=== PATIENT | female | born 1960 | race Caucasian/White ===

== ENCOUNTER 2017-08-23 14:23 | Inpatient (IN) | payer BC ==
[2017-08-23] MEDS ORDERED: Albuterol/Ipratropium NEB.SOL* Albuterol 2.5 MG/Ipratropium 0.5 MG 3 ML INH ONE ×2 (14:43→15:39)
[2017-08-23] MEDS ORDERED: methylPREDNISolone 125 MG* 2 ML VIAL IV ONE (14:43)
[2017-08-23] MEDS ORDERED: Albuterol/Ipratropium NEB.SOL* Albuterol 2.5 MG/Ipratropium 0.5 MG 3 ML ONE (14:44)
[2017-08-23 14:58] LABS: Hematocrit 40 % (35-47); Hemoglobin 13.7 g/dl (12.0-16.0); Mean Corpuscular HGB Conc 34 g/dl (31-36); Mean Corpuscular Hemoglobin 30 pg (27-31); Mean Corpuscular Volume 89 fL (80-97); Mean Platelet Volume 7 um3 (7.4-10.4); Red Blood Count 4.51 10^6/ul (4.0-5.4); Red Cell Distribution Width 14 % (10.5-15); White Blood Count 8.4 10^3/ul (3.5-10.8)
[2017-08-23 15:12] LABS: Albumin 3.9 g/dL (3.2-5.2); BUN/Creatinine Ratio 23.1 (8-20); Calcium 9.2 mg/dL (8.6-10.3); EGFR African American 97.2 (>60); EGFR Non-African American 75.6 (>60); Globulin 3.3 g/dL (2-4); Potassium 4.1 mmol/L (3.5-5.0); Total Protein 7.2 g/dL (6.4-8.9)
--- NOTE | 2017-08-23 16:28 | RAD ---
INDICATION: Shortness of breath. COMPARISON: Most recent comparison chest x-rays dated March 02, 2016 TECHNIQUE: Single AP portable view of the chest was obtained. FINDINGS: Image quality is compromised due to the relative inferiority of a portable chest x-ray. There is a mild degree of cardiomegaly similar in appearance to the prior chest x-ray. The heart and mediastinum otherwise are normal in contour and morphology. There is faint density overlying the bilateral lungs. The pulmonary vasculature appears minimally engorged and indistinct. There is slight bilateral costophrenic angle blunting. Visualized bones are normal for the patient's age. IMPRESSION: In the correct clinical setting chest x-ray findings are most consistent with exacerbation of congestive heart failure.
[2017-08-23] MEDS ORDERED: Acetaminophen TAB* 325 MG PO PRN (16:49)
[2017-08-23] MEDS ORDERED: Albuterol 2.5 MG/3 ML NEB.SOL* (0.083%) INH PRN (16:49)
[2017-08-23] MEDS ORDERED: Ondansetron INJ* 2 MG/ML VIAL IV PRN (16:49)
[2017-08-23] MEDS ORDERED: Dextrose 50% Syringe 50 ML* 25 GM/50 ML SYRINGE IV PUSH PRN (16:53)
[2017-08-23] MEDS ORDERED: Albuterol/Ipratropium NEB.SOL* Albuterol 2.5 MG/Ipratropium 0.5 MG 3 ML INH SCH (17:00)
[2017-08-23] MEDS: predniSONE TAB* 20 MG PO SCH (19:23)
[2017-08-23] MEDS: Azithromycin IV(*) 500 MG in NS 0.9% 250 ML* 250 ML IVPB SCH (19:24)
[2017-08-23] MEDS: Atorvastatin* 20 MG TAB PO SCH (19:24)
[2017-08-23] MEDS: Mometasone/Formoter 200/5 MDI INH SCH (19:47)
[2017-08-23] MEDS: Albuterol/Ipratropium NEB.SOL* Albuterol 2.5 MG/Ipratropium 0.5 MG 3 ML INH SCH ×2 (19:47→23:51)
[2017-08-23] MEDS: Heparin VIAL(*) 5000 UNITS/ML VIAL (FIVE THOUSAND) SUBCUT SCH (20:11)
[2017-08-23] MEDS: cefTRIAXone VIAL(*) 1,000 MG in NS 0.9% 50 ML* 50 ML IVPB SCH (21:10)
--- NOTE | 2017-08-24 00:59 | HP ---
CC: Dr. Johanne Hernandez * HISTORY AND PHYSICAL: DATE OF ADMISSION: 08/22/17 PRIMARY CARE PROVIDER: Dr. Johanne Hernandez. ATTENDING PHYSICIAN WHILE IN THE HOSPITAL: Dante Mitchell MD * (report dictated by J Luis Davis NP) CHIEF COMPLAINT: 1. Cough. 2. Sore throat. 3. Rhinorrhea. 4. Shortness of breath. HISTORY OF PRESENT ILLNESS: Ms. Walsh is a 57-year-old female patient carrying a history of hypothyroidism, chronic back pain,history of pneumonia in the past, obesity, MOISE, COPD, uterine cancer, hyperlipidemia, diabetes, hypertension and migraine. She comes in today stating the last couple of days she has been feeling pretty run down. She has been having difficulty with breathing, having a sore throat. She has progressively become more congested. She has had runny nose. She had been trying to take Mucinex, unfortunately, she ran out of her inhalers. She tried to work last night, but she could not. She went home early from work. She was lying down in bed. She just woke up from sleep, was really short of breath, was getting more short of breath with any type of movement or minimal exertion. She denied having any documented fevers or chills and no recent sick contacts that she is aware of. She does state that interestingly she recently had her flu shot. She was concerned because of the breathing, she decided to come into the ER today. She says she has been having a cough that has been productive. She is swallowing the sputum , she is not spitting it out. She does not know what color it is. She denied having any chest pain with the exception it hurts when she coughs and she denied having any nausea, vomiting or diarrhea or any abdominal discomfort. She was evaluated here in the ED. She was given several rounds of nebulizer, but despite this she just was not improving. So, we were asked to evaluate for admission. PAST MEDICAL HISTORY: Significant for: 1. Hypothyroidism. 2. Recurrent pneumonia in the past. 3. Back pain. 4. Obesity. 5. MOISE. 6. COPD. 7. Uterine cancer. 8. Hypertension. 9. Hyperlipidemia. 10. Diabetes. 11. Migraine. PAST SURGICAL HISTORY: 1. She has had a hernia repair. 2. D and Cs. 3. Laparoscopic cholecystectomy. 4. section x3. MEDICATIONS: The home meds according to Bianka's list and we need that clarified because I am not sure what inhaler she is supposed to be taking. She said she has run out and has not been on them for some time, but the most recent meds that I have from Bianka's include: 1. Diltiazem CD 120 mg p.o. daily. 2. Albuterol 2 puffs inhaled every 6 hours as needed. 3. Synthroid 175 mcg daily. 4. Questran 1 packet daily p.o. 5. Januvia 25 mg daily. 6. Glucophage 850 mg p.o. b.i.d. 7. Lipitor 20 mg daily. ALLERGIES TO MEDICATIONS: Include LEVAQUIN. FAMILY HISTORY: Mother had a history of a lung cancer. Father's history was reviewed and essentially unremarkable. She denied her father having heart disease, strokes, or cancers. SOCIAL HISTORY: She is a former smoker, quit 20 years ago. Does not drink alcohol. Surrogate decision maker is her daughter. REVIEW OF SYSTEMS: There is no documented fever. She denied having any significant weight change. There was no double vision. There is no ear discharge. There was rhinorrhea. There was sore throat. There was no thyroid enlargement. She does admit to having chest per my HPI. There is dyspnea on exertion. No orthopnea. No nocturnal dyspnea. No abdominal pain. No nausea, no vomiting, no dysuria, no frequency. There was no seizure, no loss of consciousness, no pruritus, and no skin ulcerations. Review of 14 systems completed, all others are negative. PHYSICAL EXAMINATION GENERAL: At this time, Ms. Walsh is a 57-year-old female patient. She is sitting in the ER stretcher. She does not appear to be in any acute distress. VITAL SIGNS: Blood pressure 166/70, yesterday pulse 113 and is now 90, respirations were 22, O2 sat 98%, and temperature 99.2. HEENT: Head atraumatic. Eyes, EOMs intact. Sclerae anicteric. Throat, oral mucosa appears to be dry. I did not appreciate any erythema to her throat and she again was noted to be hoarse. NECK: Supple. LUNGS: She had wheezing noted throughout bilaterally. Equal diaphragmatic expansion. HEART: Heart sounds S1 and S2. No murmurs, rubs, or gallops. ABDOMEN: Soft. It was flat, nontender. Bowel sounds present. EXTREMITIES: Pulses were 2+ throughout. She is moving all 4 extremities. 5/5 strength. NEUROLOGIC: She is awake, alert, and oriented x3. Speech is clear. No gross focal deficits. SKIN: Intact. DIAGNOSTIC STUDIES/LABORATORY DATA: WBC is 8.4, RBC of 4.51, hemoglobin 13.7, hematocrit 40, platelet count 278. Sodium 135, potassium 4.1, chloride 100, bicarb 28, BUN 18, creatinine 0.78, glucose 131, lactate 1.6, calcium 9.2. Total bilirubin 1.0, AST 14, ALT 19, alk phos 112. Troponin 0. BNP 19. Albumin of 3.9. Serology negative for flu. She did have a chest x-ray today. When I reviewed it, I did not appreciate any acute infiltrates. I reviewed with her previous chest x-ray, to me it appeared to be similar. I did not appreciate any pulmonary edema. She did have an EKG obtained today as well. Today his EKG is showing a normal sinus rhythm with a rate of 94. No ST elevations or T wave inversions were noted. Old medical records were reviewed. ASSESSMENT AND PLAN: Ms. Walsh is 57-year-old female patient coming into the ER today with upper respiratory complaints. The hospitalist service was asked to evaluate for admission. She was not responding to therapy here in the ED. She will be admitted under inpatient status for: 1. Chronic obstructive pulmonary disease exacerbation. At this point, I will go ahead and put her on standing neb steroids, inhaled steroids in the form of Dulera. At one point, she was on Advair, but she is not taking this anymore. She said she ran out. I will go ahead and get legionella antigen, Strep pneumo antigen and I am going to put her on antibiotics as well and we will continue to follow her closely. I will order flutter valve as well and try to get a sputum culture if possible. 2. Hypothyroidism. Continue her Synthroid. 3. Hyperlipidemia. Continue her statin and Questran therapy. 4. Hypertension. Continue the Cartia. 5. Obesity and chronic back pain. Follow up with her primary. None at this point. 6. Obstructive sleep apnea. She actually told me she is on BiPAP, we will continue. 7. History of uterine cancer. Again, follow up with primary. 8. Migraines. P.r.n. Tylenol as available. 9. DVT prophylaxis: She is high risk, placed on subcu. 10. Code status: Full code. 11. Fluids, electrolytes, and nutrition: She can have a consistent carb diet. TIME SPENT: On this admission was approximately 60 minutes, greater than half the time spent [id number] with the patient obtaining my history and physical. Other half time spent going over the plan of care with the patient, implementing the plan of care. I discussed the plan of care with my attending Dr. Mitchell, he is in agreement. J LUIS DAVIS, BLAINE [id number]/CPS #: [id number]
[2017-08-24] MEDS: Albuterol/Ipratropium NEB.SOL* Albuterol 2.5 MG/Ipratropium 0.5 MG 3 ML INH SCH ×6 (03:16→23:40)
[2017-08-24] MEDS: Cholestyramine Resin* 4 GM POWDER PO SCH (06:15)
[2017-08-24] MEDS: Heparin VIAL(*) 5000 UNITS/ML VIAL (FIVE THOUSAND) SUBCUT SCH ×3 (06:28→21:10)
[2017-08-24 06:33] LABS: Hematocrit 41 % (35-47); Hemoglobin 13.8 g/dl (12.0-16.0); Mean Corpuscular HGB Conc 34 g/dl (31-36); Mean Corpuscular Hemoglobin 30 pg (27-31); Mean Corpuscular Volume 90 fL (80-97); Mean Platelet Volume 7 um3 (7.4-10.4); Red Blood Count 4.54 10^6/ul (4.0-5.4); Red Cell Distribution Width 15 % (10.5-15)
[2017-08-24 06:50] LABS: Potassium 4.4 mmol/L (3.5-5.0)
[2017-08-24 06:51] LABS: BUN/Creatinine Ratio 20.8 (8-20); Calcium 9.5 mg/dL (8.6-10.3); EGFR African American 106.6 (>60); EGFR Non-African American 82.9 (>60)
[2017-08-24] MEDS: Levothyroxine TAB* 175 MCG TAB PO SCH (07:14)
--- NOTE | 2017-08-24 07:44 | PN ---
Subjective Date of Service: 08/24/17 Objective Active Medications: Acetaminophen (Tylenol Tab*) 650 mg PO Q4H PRN Albuterol (Ventolin 2.5 Mg/3 Ml Neb.Chyna*) 2.5 mg INH Q2H PRN Albuterol/Ipratropium (Duoneb (Albuterol 2.5 Mg/Ipratropium 0.5 Mg)) 1 neb INH Q4H GENIA Atorvastatin Calcium (Lipitor*) 20 mg PO 1700 GENIA Cholestyramine Resin (Questran*) 4 gm PO 0400 GENIA Dextrose (D50w Syringe 50 Ml*) 12.5 gm IV PUSH .FOR FS < 60 - SS PRN Diltiazem HCl (Cardizem Cd Cap*) 120 mg PO DAILY GENIA Heparin Sodium (Porcine) (Heparin Vial(*)) 5,000 units SUBCUT Q8HR GENIA Ceftriaxone Sodium 1,000 mg/ (Sodium Chloride) 50 mls @ 200 mls/hr IVPB Q24H GENIA Azithromycin 500 mg/ Sodium (Chloride) 250 mls @ 250 mls/hr IVPB Q24H GENIA Insulin Human Lispro (Humalog*) 0 units SUBCUT AC GENIA Levothyroxine Sodium (Synthroid Tab*) 175 mcg PO 0600 GENIA Mometasone Furoate/Formoterol Fumar (Dulera 200/5 Mdi*) 2 puff INH BID GENIA Ondansetron HCl (Zofran Inj*) 4 mg IV Q6H PRN Prednisone (Deltasone Tab*) 60 mg PO DAILY [facility] Vital Signs: Temp Pulse Resp BP Pulse Ox 97.7 F 92 20 148/63 100 08/23/17 23:25 08/24/17 03:29 08/24/17 03:29 08/24/17 03:29 08/24/17 03:29 Oxygen Devices in Use Now: Nasal Cannula Result Diagrams: 08/24/17 06:22 08/24/17 06:23 Microbiology and Other Data: . Assess/Plan/Problems-Billing Assessment: Ms. Walsh is a 57 yo female with a PMH of COPD who was admitted on 08/23/17 with a COPD exacerbation. - Patient Problems (1) COPD exacerbation Comment: - No infiltrate on Cxray, no leukocytosis, afebrile. - Continue prednisone, ceftriazone, azithromycin, dulera, nebulizers, MDI, O2 prn. (2) Hypertension Comment: - SBP 140-150s. - Continue diltiazem (3) Diabetes mellitus Comment: - BG 270 this AM, likely secondary to high dose steroids on arrival. - Continue lispro SSI coverage with meals. (4) Dyslipidemia Comment: - Continue atorvastatin and cholestyramine. (5) Hypothyroid Comment: - TSH 3.25. - Continue levothyroxine. (6) MOISE (obstructive sleep apnea) Comment: - Continue CPAP/BiPAP qPM. (7) DVT prophylaxis (8) Full code status Comment: - Heparin SQ. Status and Disposition: Inpatient. Anticipate discharge to home when medically stable.
[2017-08-24] MEDS: Insulin LISPRO* 1 UNITS UNIT SUBCUT SCH ×3 (07:53→16:24)
[2017-08-24] MEDS: Diltiazem CD CAP* 240 MG PO SCH (07:54)
[2017-08-24] MEDS: predniSONE TAB* 20 MG PO SCH (07:54)
[2017-08-24] MEDS: Mometasone/Formoter 200/5 MDI INH SCH ×2 (08:32→19:26)
--- NOTE | 2017-08-24 09:57 | PN ---
Subjective Date of Service: 08/24/17 Interval History: Ms. Walsh reports that she feels better than on arrival but that she remains quite dyspneic on exertion. She denies chest pain, nausea, or abdominal pain. Objective Active Medications: Acetaminophen (Tylenol Tab*) 650 mg PO Q4H PRN Albuterol (Ventolin 2.5 Mg/3 Ml Neb.Chyna*) 2.5 mg INH Q2H PRN Albuterol/Ipratropium (Duoneb (Albuterol 2.5 Mg/Ipratropium 0.5 Mg)) 1 neb INH Q4H GENIA Atorvastatin Calcium (Lipitor*) 20 mg PO 1700 GENIA Cholestyramine Resin (Questran*) 4 gm PO 0400 GENIA Dextrose (D50w Syringe 50 Ml*) 12.5 gm IV PUSH .FOR FS < 60 - SS PRN Diltiazem HCl (Cardizem Cd Cap*) 120 mg PO DAILY GENIA Heparin Sodium (Porcine) (Heparin Vial(*)) 5,000 units SUBCUT Q8HR GENIA Ceftriaxone Sodium 1,000 mg/ (Sodium Chloride) 50 mls @ 200 mls/hr IVPB Q24H GENIA Azithromycin 500 mg/ Sodium (Chloride) 250 mls @ 250 mls/hr IVPB Q24H GENIA Insulin Human Lispro (Humalog*) 0 units SUBCUT AC GENIA Levothyroxine Sodium (Synthroid Tab*) 175 mcg PO 0600 GENIA Mometasone Furoate/Formoterol Fumar (Dulera 200/5 Mdi*) 2 puff INH BID GENIA Ondansetron HCl (Zofran Inj*) 4 mg IV Q6H PRN Prednisone (Deltasone Tab*) 60 mg PO DAILY [facility] Vital Signs: Temp Pulse Resp BP Pulse Ox 97.3 F 94 20 161/76 100 08/24/17 07:58 08/24/17 08:30 08/24/17 08:00 08/24/17 07:58 08/24/17 08:30 Oxygen Devices in Use Now: None Appearance: Female sitting up in bed in NAD Eyes: No Scleral Icterus Ears/Nose/Mouth/Throat: NL Teeth, Lips, Gums Neck: NL Appearance and Movements; NL JVP Respiratory: Symmetrical Chest Expansion and Respiratory Effort, - - Rhonchi and expiratory wheezing bilaterally Cardiovascular: NL Sounds; No Murmurs; No JVD, No Edema Abdominal: NL Sounds; No Tenderness; No Distention Lymphatic: No Cervical Adenopathy Extremities: No Edema Skin: No Rash or Ulcers Neurological: Alert and Oriented x 3, NL Muscle Strength and Tone Nutrition: Taking PO's Result Diagrams: 08/24/17 06:22 08/24/17 06:23 Microbiology and Other Data: . Assess/Plan/Problems-Billing Assessment: Ms. Walsh is a 57 yo female with a PMH of COPD who was admitted on 08/23/17 with a COPD exacerbation. - Patient Problems (1) COPD exacerbation Comment: - Slow improvement, but not requiring O2 at rest this morning. - No infiltrate on Cxray, no leukocytosis, afebrile. Suspect COPD exacerbation brought on by viral URI. - Continue prednisone, ceftriazone, azithromycin, dulera, nebulizers, MDI, O2 prn. (2) Hypertension Comment: - SBP 140-150s. - Continue diltiazem. (3) Diabetes mellitus Comment: - BG 270 this AM, likely secondary to high dose steroids on arrival. - Hold metformin and sitagliptin. Continue lispro SSI coverage with meals. (4) Dyslipidemia Comment: - Continue atorvastatin and cholestyramine. (5) Hypothyroid Comment: - TSH 3.25. - Continue levothyroxine. (6) MOISE (obstructive sleep apnea) Comment: - Continue CPAP/BiPAP qPM. (7) DVT prophylaxis Comment: - Heparin SQ. (8) Full code status Comment: Status and Disposition: Inpatient. Anticipate discharge to home when medically stable.
--- NOTE | 2017-08-24 16:16 | ED ---
Brie Jimenez Thomas, scribed for Holger Greer MD on 08/23/17 at 1517 . Shortness of Breath - HPI Summary HPI Summary: This patient is a 57 year old F presenting to [facility] with a chief complaint of shortness of breath since yesterday. The patient rates the pain 3/10 in severity. Symptoms aggravated by nothing. Symptoms alleviated by nothing. Patient reports sore throat, cough, chest pressure, and congestion. - History of Current Complaint Chief Complaint: EDShortnessOfBreath Time Seen by Provider: 08/23/17 14:31 Hx Obtained From: Patient Onset/Duration: Lasting Days - Since yesterday, Still Present Dyspnea At: Rest Aggrevating Factors: Nothing Alleviating Factors: Nothing Associated Signs & Symptoms: Cough (Nonproductive) Related History: Obesity - Allergy/Home Medications Allergies/Adverse Reactions: Allergies Allergy/AdvReac Type Severity Reaction Status Date / Time Levofloxacin [From LevDeNovaMed] Allergy Severe Itching Verified 03/13/16 19:36 Home Medications: Home Medications Atorvastatin* [Lipitor*] 20 mg PO 1700 08/23/17 [History Confirmed 08/23/17] Cholestyramine Resin* [Questran*] 1 packet PO DAILY 08/23/17 [History Confirmed 08/23/17] Diltiazem HCl Coated Beads [Cartia Xt] 120 mg PO DAILY 08/23/17 [History Confirmed 08/23/17] Metformin HCl [Glucophage] 850 mg PO BID 08/23/17 [History Confirmed 08/23/17] Sitagliptin Phosphate [Januvia] 25 mg PO DAILY 08/23/17 [History Confirmed 08/23] PMH/Surg Hx/FS Hx/Imm Hx Previously Healthy: No Endocrine/Hematology History: Reports: Hx Diabetes - glucose typically runs 80' s - 130's, Hx Thyroid Disease - hypo, on Synthroid Cardiovascular History: Reports: Hx Hypercholesterolemia, Other Cardiovascular Problems/Disorders - increased heart rate 2 x in her life Denies: Hx Deep Vein Thrombosis, Hx Embolism, Hx Hypertension, Hx Myocardial Infarction, Hx Pacemaker/ICD Respiratory History: Reports: Hx Asthma - well controlled, Hx Chronic Obstructive Pulmonary Disease (COPD), Hx Pneumonia, Hx Sleep Apnea GI History: Reports: Hx Gall Bladder Disease - cholecystectomy 27 yrs ago, Other GI Disorders - diarrhea w/certain foods (ie. chips) Denies: Hx Crohn's Disease History: Reports: Other Problems/Disorders - Frequent UTI's Musculoskeletal History: Reports: Hx Arthritis - joints, not in back Denies: Hx Back Problems Sensory History: Reports: Hx Contacts or Glasses Denies: Hx Hearing Aid Opthamlomology History: Reports: Hx Contacts or Glasses Neurological History: Reports: Hx Migraine Psychiatric History: Reports: Hx Anxiety Denies: Hx Panic Disorder - Cancer History Cancer Type, Location and Year: UTERINE CA 08/19/14 Hx Chemotherapy: No - Surgical History Surgery Procedure, Year, and Place: 3-C SECTION ; D&C; CYST-COCCYX REMOVED; GALLBLADDER- 24 YRS AGO,HYSTERECTOMY - Immunization History Date of Tetanus Vaccine: >10 years Date of Influenza Vaccine: fall 2012 Infectious Disease History: No Infectious Disease History: Denies: Hx Shingles, Traveled Outside the [place] in Last 30 Days - Family History Known Family History: Positive: Other - Cancer Negative: Seizure Disorder - Social History Alcohol Use: None Hx Substance Use: No Substance Use Type: Reports: None Hx Tobacco Use: No Smoking Status (MU): Former Smoker Type: Cigarettes Have You Smoked in the Last Year: No Review of Systems Negative: Fever ENT: Other - Congestion Positive: Sore Throat Respiratory: Other - Chest pressure Positive: Shortness Of Breath, Cough All Other Systems Reviewed And Are Negative: Yes Physical Exam - Summary Physical Exam Summary: Appearance: The patient is well-nourished in no acute distress and in no acute pain. The patient whispers rather than talk. Skin: The skin is warm and dry and skin color reflects adequate perfusion. HEENT: The head is normocephalic and atraumatic. The pupils are equal and reactive. The conjunctivae are clear and without drainage. Nares are patent and without drainage. Mouth reveals moist mucous membranes and the throat is without erythema and exudate. The external ears are intact. The ear canals are patent and without drainage. The tympanic membranes are intact. Neck: the neck is supple with full range of motion and non-tender. There are no carotid bruits. There is no neck vein distension. Respiratory: Chest is non-tender. Patient has expiratory wheezing with coughing. She is tachypneic. Cardiovascular: Heart is regular rhythm and tachycardic. There is no murmur or rub auscultated. There is no peripheral edema and pulses are symmetrical and equal. Abdomen: The abdomen is soft and non-tender. There are normal bowel sounds heard in all four quadrants and there is no organomegaly palpated. Musculoskeletal: There is no back tenderness noted. Extremities are non-tender with full range of motion. There is good capillary refill. There is no peripheral edema or calf tenderness elicited. Neurological: Patient is alert and oriented to person, place and time. The patient has symmetrical motor strength in all four extremities. Cranial nerves are grossly intact. Deep tendon reflexes are symmetrical and equal in all four extremities. Psychiatric: The patient has an appropriate affect and does not exhibit any anxiety or depression. Triage Information Reviewed: Yes Vital Signs On Initial Exam: Initial Vitals Temp Pulse Resp BP Pulse Ox 99.2 F 113 24 166/70 91 08/23/17 14:27 08/23/17 14:27 08/23/17 14:27 08/23/17 14:27 08/23/17 14:27 Vital Signs Reviewed: Yes Diagnostics - Vital Signs Vital Signs Temp Pulse Resp BP Pulse Ox 08/23/17 14:27 99.2 F 113 24 166/70 91 - Laboratory Lab Results: Lab Results 08/23/17 08/23/17 08/23/17 Range/Units 14:51 14:51 14:51 WBC 8.4 (3.5-10.8) 10^3/ul RBC 4.51 (4.0-5.4) 10^6/ul Hgb 13.7 (12.0-16.0) g/dl Hct 40 (35-47) % MCV 89 (80-97) fL MCH 30 (27-31) pg MCHC 34 (31-36) g/dl RDW 14 (10.5-15) % Plt Count 278 (150-450) 10^3/ul MPV 7 L (7.4-10.4) um3 Neut % (Auto) 73.4 (38-83) % Lymph % (Auto) 14.5 L (25-47) % [place] % (Auto) 10.0 H (1-9) % Eos % (Auto) 1.4 (0-6) % Baso % (Auto) 0.7 (0-2) % Absolute Neuts (auto) 6.2 (1.5-7.7) 10^3/ul Absolute Lymphs (auto) 1.2 (1.0-4.8) 10^3/ul Absolute Monos (auto) 0.8 (0-0.8) 10^3/ul Absolute Eos (auto) 0.1 (0-0.6) 10^3/ul Absolute Basos (auto) 0.1 (0-0.2) 10^3/ul Absolute Nucleated RBC 0.01 10^3/ul Nucleated RBC % 0.1 INR (Anticoag Therapy) (0.89-1.11) APTT (26.0-36.3) seconds Sodium 135 (133-145) mmol/L Potassium 4.1 (3.5-5.0) mmol/L Chloride 100 L (101-111) mmol/L Carbon Dioxide 28 (22-32) mmol/L Anion Gap 7 (2-11) mmol/L BUN 18 (6-24) mg/dL Creatinine 0.78 (0.51-0.95) mg/dL Est GFR ( Amer) 97.2 (>60) Est GFR (Non-Af Amer) 75.6 (>60) BUN/Creatinine Ratio 23.1 H (8-20) Glucose 131 H (70-100) mg/dL Lactic Acid (0.5-2.0) mmol/L Calcium 9.2 (8.6-10.3) mg/dL Total Bilirubin 1.00 (0.2-1.0) mg/dL AST 14 (13-39) U/L ALT 19 (7-52) U/L Alkaline Phosphatase 112 H (34-104) U/L Troponin I 0.00 (<0.04) ng/mL B-Natriuretic Peptide 19 ( - 100) pg/mL Total Protein 7.2 (6.4-8.9) g/dL Albumin 3.9 (3.2-5.2) g/dL Globulin 3.3 (2-4) g/dL Albumin/Globulin Ratio 1.2 (1-3) Influenza A (Rapid) (Negative) Influenza B (Rapid) (Negative) 08/23/17 08/23/17 08/23/17 Range/Units 14:51 14:51 15:51 WBC (3.5-10.8) 10^3/ul RBC (4.0-5.4) 10^6/ul Hgb (12.0-16.0) g/dl Hct (35-47) % MCV (80-97) fL MCH (27-31) pg MCHC (31-36) g/dl RDW (10.5-15) % Plt Count (150-450) 10^3/ul MPV (7.4-10.4) um3 Neut % (Auto) (38-83) % Lymph % (Auto) (25-47) % [place] % (Auto) (1-9) % Eos % (Auto) (0-6) % Baso % (Auto) (0-2) % Absolute Neuts (auto) (1.5-7.7) 10^3/ul Absolute Lymphs (auto) (1.0-4.8) 10^3/ul Absolute Monos (auto) (0-0.8) 10^3/ul Absolute Eos (auto) (0-0.6) 10^3/ul Absolute Basos (auto) (0-0.2) 10^3/ul Absolute Nucleated RBC 10^3/ul Nucleated RBC % INR (Anticoag Therapy) 0.87 L (0.89-1.11) APTT 32.4 (26.0-36.3) seconds Sodium (133-145) mmol/L Potassium (3.5-5.0) mmol/L Chloride (101-111) mmol/L Carbon Dioxide (22-32) mmol/L Anion Gap (2-11) mmol/L BUN (6-24) mg/dL Creatinine (0.51-0.95) mg/dL Est GFR ( Amer) (>60) Est GFR (Non-Af Amer) (>60) BUN/Creatinine Ratio (8-20) Glucose (70-100) mg/dL Lactic Acid 1.6 (0.5-2.0) mmol/L Calcium (8.6-10.3) mg/dL Total Bilirubin (0.2-1.0) mg/dL AST (13-39) U/L ALT (7-52) U/L Alkaline Phosphatase (34-104) U/L Troponin I (<0.04) ng/mL B-Natriuretic Peptide ( - 100) pg/mL Total Protein (6.4-8.9) g/dL Albumin (3.2-5.2) g/dL Globulin (2-4) g/dL Albumin/Globulin Ratio (1-3) Influenza A (Rapid) Negative (Negative) Influenza B (Rapid) Negative (Negative) Result Diagrams: 08/24/17 06:22 08/24/17 06:23 Lab Statement: Any lab studies that have been ordered have been reviewed, and results considered in the medical decision making process. - Radiology CXR Xray Interpretation: Positive (See Comments) - In the correct clinical setting chest x-ray findings are most consistent with exacerbation of congestive heart failure. ED physician has reviewed this report and agrees. Radiology Interpretation Completed By: Radiologist - EKG 14:48 Cardiac Rate: NL EKG Rhythm: Sinus Rhythm EKG Interpretation: 94 BPM. Normal EKG. Re-Evaluation - Re-Evaluation First Eval Re-Evaluation Time: 16:24 Change: Unchanged Comment: The patient still has expiratory wheezing with cough. She is still tachypneic. Course/Dx - Course Course Of Treatment: Ms. Walsh has been fighting an exacerbation of her asthma for a few days. She is out of her inhaler and has URI symptoms. She didn't really get any better with treatment here in the ED and is being admitted to the hospital by the hospitalists. - Diagnoses Provider Diagnoses: Asthma exacerbation - Critical Care Time Critical Care Time: 30-74 min Discharge - Discharge Plan Condition: Stable Disposition: ADMITTED TO [facility] documentation as recorded by the Brie mcgrath Thomas accurately reflects the service I personally performed and the decisions made by me, Holger Greer MD.
[2017-08-24] MEDS: Atorvastatin* 20 MG TAB PO SCH (16:24)
[2017-08-24] MEDS: Azithromycin IV(*) 500 MG in NS 0.9% 250 ML* 250 ML IVPB SCH (16:25)
[2017-08-24] MEDS: cefTRIAXone VIAL(*) 1,000 MG in NS 0.9% 50 ML* 50 ML IVPB SCH (21:06)
[2017-08-25] MEDS: Albuterol/Ipratropium NEB.SOL* Albuterol 2.5 MG/Ipratropium 0.5 MG 3 ML INH SCH ×2 (03:46→08:08)
[2017-08-25] MEDS: Cholestyramine Resin* 4 GM POWDER PO SCH (04:54)
[2017-08-25] MEDS: Heparin VIAL(*) 5000 UNITS/ML VIAL (FIVE THOUSAND) SUBCUT SCH (04:55)
[2017-08-25] MEDS: Levothyroxine TAB* 175 MCG TAB PO SCH (05:44)
[2017-08-25] MEDS: Insulin LISPRO* 1 UNITS UNIT SUBCUT SCH ×2 (07:28→11:40)
[2017-08-25] MEDS: Mometasone/Formoter 200/5 MDI INH SCH (08:08)
[2017-08-25] MEDS: predniSONE TAB* 20 MG PO SCH (08:46)
[2017-08-25] MEDS: Diltiazem CD CAP* 240 MG PO SCH ×2 (08:47→08:48)
[2017-08-25 12:57] VITALS: BP 146/68
[2017-08-25] MEDS ORDERED: Albuterol/Ipratropium NEB.SOL* Albuterol 2.5 MG/Ipratropium 0.5 MG 3 ML INH SCH (13:00)
--- NOTE | 2017-08-26 10:21 | DS ---
CC: Dr. Hernandez * DISCHARGE SUMMARY: DATE OF ADMISSION: 08/23/17. DATE OF DISCHARGE: 08/25/17. DISCHARGING PROVIDER: SALTY Campos. SUPERVISING PHYSICIAN: Dr. Kurtis Garza * (DICTATED BY SALTY CAMPOS) PRIMARY CARE PROVIDER: Dr. Hernandez. PRIMARY DISCHARGE DIAGNOSIS: Chronic obstructive pulmonary disease exacerbation. SECONDARY DISCHARGE DIAGNOSES: 1. Hypertension. 2. Diabetes, noninsulin dependent. 3. Hyperlipidemia. 4. Hypothyroidism. 5. Obstructive sleep apnea. 6. Morbid obesity with a BMI of 62. DISCHARGE MEDICATIONS: 1. Albuterol HFA 2 puffs inhaled q.6 hours as needed for shortness of breath. 2. DuoNeb 1 neb inhaled 4 times daily as needed for shortness of breath. 3. Atorvastatin 20 mg p.o. daily. 4. Cholestyramine 1 packet p.o. daily. 5. Diltiazem 120 mg p.o. daily. 6. Levothyroxine 175 mcg p.o. daily. 7. Metformin 850 mg p.o. twice daily. 8. Prednisone on a tapering dose of 40 mg x2 days followed by 20 mg x2 days and then stop. 9. Januvia 25 mg p.o. daily. Medication changes: 1. Prednisone at a tapering dose. DIAGNOSTIC DATA: Chest x-ray: Possible pulmonary edema, but limited exam. HOSPITAL COURSE: This is a 57-year-old morbidly obese female with COPD, hypertension, hyperlipidemia, obstructive sleep apnea, and noninsulin dependent diabetes as well as hypothyroidism who presented to the emergency department with complaints of shortness of breath. The patient started to have some mild viral symptoms including a sore throat and rhinorrhea and then became acutely short of breath. Her initial chest x-ray did not demonstrate an acute infiltrate. She was tachycardic and tachypneic at the time of admission without severe hypoxia. She had significant wheeze on initial exam, subsequently admitted for COPD exacerbation. Patient was treated with systemic corticosteroids, inhaled steroids/long-acting beta agonists and frequent DuoNeb to a positive effect. Patient remained hoarse , but her dyspnea improved as did her lung exam with maintaining decent oxygen saturation on room air. Of note, patient states that she stopped her maintenance inhaler quite sometime ago. She was previously prescribed Advair, but had difficulty affording the medication. She was not clear exactly how expensive the medication was, whether it was simply not a covered medication. I suggested to her that the severity and infrequency of her exacerbation would decrease if she is able to stay on a maintenance inhaler. I encouraged her to discuss this further with her primary care provider. DISPOSITION AND FOLLOW-UP PLAN: The patient is being discharged to home with the above medications. She will require close followup with her primary care provider and again to discuss use of maintenance inhaler. SALTY CAMPOS [id number]/CPS #: [id number] THIAGO
== END 2017-08-25 13:15 | disposition home or self-care (01) | DRG 140 ==
LOC: ED 14:23 → MED 16:43
PROVIDERS: ADMIT Internal Medicine; ATTEND Internal Medicine
PROC: 5A09357 Assistance with Respiratory Ventilation, Less than 24 Consecutive Hours, Continuous Positive Airway Pressure (ICD-10-PCS; principal; 2017-08-24)
DX: J44.1 Chronic obstructive pulmonary disease with (acute) exacerbation (principal); Z68.44 Body mass index [BMI] 60.0-69.9, adult; E66.01 Morbid (severe) obesity due to excess calories; I10 Essential (primary) hypertension; E11.9 Type 2 diabetes mellitus without complications; E78.5 Hyperlipidemia, unspecified; E03.9 Hypothyroidism, unspecified; G47.33 Obstructive sleep apnea (adult) (pediatric); G89.29 Other chronic pain; M19.90 Unspecified osteoarthritis, unspecified site; F41.9 Anxiety disorder, unspecified; M54.9 Dorsalgia, unspecified; G43.909 Migraine, unspecified, not intractable, without status migrainosus; Z90.49 Acquired absence of other specified parts of digestive tract; Z85.42 Personal history of malignant neoplasm of other parts of uterus; Z88.1 Allergy status to other antibiotic agents; Z79.84 Long term (current) use of oral hypoglycemic drugs; Z87.01 Personal history of pneumonia (recurrent); Z80.1 Family history of malignant neoplasm of trachea, bronchus and lung; Z87.891 Personal history of nicotine dependence; Z87.440 Personal history of urinary (tract) infections; Z90.710 Acquired absence of both cervix and uterus
CPT/HCPCS: 36415; 71010; 80048; 80053; 83605; 83880; 84484; 85025; 85610; 85730; 87040; 87070; 87205; 87502; 87899; 93005; 94640; 94660; 94760; A9270-GY; J0456; J0696; J1644; J2930; J7512

== ENCOUNTER 2017-10-05 08:48 | Emergency (ER) | payer BC ==
--- NOTE | 2017-10-05 08:51 | UC ---
Head Injury HPI - HPI Summary HPI Summary: 57 year old female presents with complains of nausea and headache post severe neck and head injury. I will send her to the er. - History Of Current Complaint Stated Complaint: FELL-HEAD,NECK AND LEG PAIN Time Seen by Provider: 10/05/17 08:50 Hx Obtained From: Patient ?: No Onset/Duration: Sudden Onset Severity Currently: Moderate Severity Initially: Moderate Pain Scale Used: 0-10 Numeric - 5 - Allergies/Home Medications Allergies/Adverse Reactions: Allergies Allergy/AdvReac Type Severity Reaction Status Date / Time Levofloxacin [From Levaquin] Allergy Severe Itching Verified 10/05/17 09:09 PMH/Surg Hx/FS Hx/Imm Hx Previously Healthy: Yes - Surgical History Surgical History: Yes Surgery Procedure, Year, and Place: 3-C SECTION ; D&C; CYST-COCCYX REMOVED; GALLBLADDER- 24 YRS AGO,HYSTERECTOMY - Family History Known Family History: Positive: Unknown, Other - Cancer Negative: Seizure Disorder - Social History Alcohol Use: None Substance Use Type: None Smoking Status (MU): Former Smoker Type: Cigarettes Have You Smoked in the Last Year: No Household Exposure Type: Cigarettes - Immunization History Most Recent Influenza Vaccination: 06/2014 Most Recent Tetanus Shot: 2013 Most Recent Pneumonia Vaccination: 06/2014 Review of Systems Constitutional: Negative Skin: Negative Eyes: Negative ENT: Negative Respiratory: Negative Cardiovascular: Negative Gastrointestinal: Negative Genitourinary: Negative Motor: Negative Neurovascular: Negative Musculoskeletal: Arthralgia, Myalgia, Other: - head/neck pain Neurological: Negative Psychological: Negative All Other Systems Reviewed And Are Negative: Yes Physical Exam Triage Information Reviewed: Yes Vital Signs Reviewed: Yes Eye Exam: Normal ENT Exam: Normal Dental Exam: Normal Neck exam: Normal Neck: Positive: 1 Respiratory Exam: Normal Cardiovascular Exam: Normal Abdominal Exam: Normal Musculoskeletal Exam: Normal Neurological Exam: Normal Psychological Exam: Normal Skin Exam: Normal Head Injury Course/Dx - Differential Dx/Diagnosis Provider Diagnoses: head inujury. neck pain. headache. nausea Discharge - Discharge Plan Condition: Stable Disposition: [facility] Referrals: Johanne Hernandez MD [Primary Care Provider] - Additional Instructions:
[2017-10-05 09:09] VITALS: BP 175/61
== END 2017-10-05 09:31 | disposition short-term general hospital (02) ==
LOC: UCEAST 08:48
DX: S09.90XA Unspecified injury of head, initial encounter (principal); M54.2 Cervicalgia; R11.0 Nausea; Z88.1 Allergy status to other antibiotic agents; Z87.891 Personal history of nicotine dependence; W19.XXXA Unspecified fall, initial encounter; Y92.9 Unspecified place or not applicable
CPT/HCPCS: 99213; G0463

== ENCOUNTER 2017-10-05 09:51 | Emergency (ER) | payer BC ==
--- NOTE | 2017-10-05 11:22 | RAD ---
indication: Trauma. COMPARISON: None A CT scan of the brain and c-spine was performed without intravenous contrast enhancement. Contiguous axial sections were obtained from the lung apices through the vertex. BRAIN: The ventricles, cisterns and sulci are within normal limits. No significant focal abnormality or mass effect is seen. The valladares-white differentiation is adequately maintained. There is no evidence for intracranial hemorrhage. Incidental note is made of hyperostosis frontalis interna. No significant bony abnormality is present. The mastoid air cells are appropriately aerated. The visualized paranasal sinuses are clear. C-SPINE: There is nonspecific straightening of the normal cervical lordosis on the sagittal view images. Multilevel degenerative changes of the cervical spine include loss of intervertebral disc height and marginal osteophyte formation. This is more severe at the lower cervical spine from C5 to T1. Uncovertebral hypertrophy with sclerotic change of the articulating surfaces is evident on the coronal plane images. There is no hyperdense material in the cervical canal to indicate hemorrhage. The visualized musculature and soft tissues are normal. There is no gross lymphadenopathy visualized. Coarse calcification is noted at the bilateral carotid bulbs. The visualized portion of the lung apices are clear. IMPRESSION: 1. No calvarial fracture or acute intracranial hemorrhage. 2. There is nonspecific straightening of the normal cervical lordosis and multilevel degenerative change of the cervical spine without acute fracture or dislocation.
--- NOTE | 2017-10-05 12:17 | RAD ---
INDICATION: Right hip pain after a fall COMPARISON: CT of the pelvis September 08, 2017 TECHNIQUE: 4 views of the right hip were obtained. FINDINGS: The visualized bones of the right hip are well-corticated and properly aligned. The joint spaces are normal. There is no radiographic evidence of acute fracture or dislocation. IMPRESSION: Normal radiograph of the right hip. If the patient's symptoms persist follow-up imaging is recommended.
--- NOTE | 2017-10-05 12:19 | RAD ---
INDICATION: Low back pain after a fall COMPARISON: CT examination dated March 02, 2016 TECHNIQUE: 2 views of the lumbar spine were obtained. FINDINGS: The vertebra are in normal alignment. No fracture is seen. Degenerative changes of the lumbar spine include loss of intervertebral disc height involving the lower thoracic and lumbar spine with mild marginal osteophyte patient. IMPRESSION: Degenerative changes similar to the prior CT examination without radiographically apparent fracture or dislocation.
[2017-10-05 13:35] VITALS: BP 183/79
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
== END 2017-10-05 13:33 | disposition home or self-care (01) ==
LOC: ED 09:51
DX: S39.012A Strain of muscle, fascia and tendon of lower back, initial encounter (principal); M54.2 Cervicalgia; R51 Headache; M54.5 Low back pain; M25.551 Pain in right hip; Z87.891 Personal history of nicotine dependence; W19.XXXA Unspecified fall, initial encounter; Y93.9 Activity, unspecified; Y92.9 Unspecified place or not applicable
CPT/HCPCS: 70450; 72100; 72125; 99282

== ENCOUNTER 2018-04-26 23:31 | Inpatient (IN) | payer BC ==
[2018-04-26] MEDS ORDERED: Albuterol/Ipratropium NEB.SOL* Albuterol 2.5 MG/Ipratropium 0.5 MG 3 ML INH ONE ×2 (23:49→23:52)
[2018-04-26] MEDS ORDERED: Acetaminophen TAB* 325 MG PO ONE (23:51)
[2018-04-26] MEDS ORDERED: Albuterol/Ipratropium NEB.SOL* Albuterol 2.5 MG/Ipratropium 0.5 MG 3 ML ONE (23:51)
[2018-04-26] MEDS ORDERED: methylPREDNISolone 125 MG* 2 ML VIAL IV ONE (23:53)
[2018-04-26] MEDS ORDERED: Magnesium Sulfate 2 GM IV* 2 GM/50 ML BAG IVPB ONE (23:54)
[2018-04-26] MEDS ORDERED: Levofloxacin 750 MG IVPREMIX(* 750 MG/150 ML BAG IVPB ONE (23:54)
--- NOTE | 2018-04-27 00:04 | ED ---
Shortness of Breath - HPI Summary HPI Summary: This is marce Evens [place] documenting for attending Dr. Lashawn Sheldon MD. A 58 y/o female presents to ED c/o sudden onset of SOB. Additionally c/o of non- productive cough. According to the patient, she experienced and currently experiences suddent onset of dyspnea. As per triage, "Sudden onset of dyspnea, non productive cough. In triage, pt is severely SOB, 88% on RA. Upgraded triage to room immediately". Pt denies any fever, however, has chills. Pt has CPAP machine at home. Pt got off steroids last week. - History of Current Complaint Chief Complaint: EDShortnessOfBreath Time Seen by Provider: 04/26/18 23:42 Hx Obtained From: Patient Onset/Duration: Sudden Onset, Still Present Timing: Constant Dyspnea At: Rest Aggrevating Factors: Other - COUGH Alleviating Factors: Nothing Associated Signs & Symptoms: Cough (Nonproductive), Wheezing, Chills - Allergy/Home Medications Allergies/Adverse Reactions: Allergies Allergy/AdvReac Type Severity Reaction Status Date / Time levofloxacin Allergy Severe Itching Verified 04/27/18 00:35 PMH/Surg Hx/FS Hx/Imm Hx Endocrine/Hematology History: Reports: Hx Diabetes - glucose typically runs 80' s - 130's, Hx Thyroid Disease Cardiovascular History: Reports: Hx Hypercholesterolemia, Other Cardiovascular Problems/Disorders - increased heart rate 2 x in her life Denies: Hx Deep Vein Thrombosis, Hx Embolism, Hx Hypertension, Hx Myocardial Infarction, Hx Pacemaker/ICD Respiratory History: Reports: Hx Asthma - well controlled, Hx Chronic Obstructive Pulmonary Disease (COPD), Hx Pneumonia, Hx Sleep Apnea GI History: Reports: Hx Gall Bladder Disease - cholecystectomy 27 yrs ago, Other GI Disorders - diarrhea w/certain foods (ie. chips) Denies: Hx Crohn's Disease History: Reports: Other Problems/Disorders - Frequent UTI's Denies: Hx Renal Disease Musculoskeletal History: Reports: Hx Arthritis - joints, not in back Denies: Hx Back Problems Sensory History: Reports: Hx Contacts or Glasses Denies: Hx Hearing Aid Opthamlomology History: Reports: Hx Contacts or Glasses Neurological History: Reports: Hx Migraine Psychiatric History: Reports: Hx Anxiety Denies: Hx Panic Disorder - Cancer History Cancer Type, Location and Year: UTERINE [place] 08/19/14 Hx Chemotherapy: No Hx Radiation Therapy: Yes - Surgical History Surgery Procedure, Year, and Place: 3-C SECTION ; D&C; CYST-COCCYX REMOVED; GALLBLADDER- 24 YRS AGO,HYSTERECTOMY; Hernia Repain - Immunization History Date of Tetanus Vaccine: >10 years Date of Influenza Vaccine: fall 2012 Infectious Disease History: Unable to Obtain/Confirm Infectious Disease History: Denies: Hx Shingles, Traveled Outside the [place] in Last 30 Days - Family History Known Family History: Positive: Other - Cancer Negative: Seizure Disorder - Social History Alcohol Use: None Hx Substance Use: No Substance Use Type: Reports: None Hx Tobacco Use: Yes Smoking Status (MU): Former Smoker Type: Cigarettes Have You Smoked in the Last Year: No Review of Systems Positive: Chills. Negative: Fever Positive: Shortness Of Breath, Cough All Other Systems Reviewed And Are Negative: Yes Physical Exam - Summary Physical Exam Summary: VITAL SIGNS: Reviewed. GENERAL: Patient is a well-developed and nourished FEMALE who is lying comfortable in the stretcher. Patient is not in any acute respiratory distress. Morbidly obese HEAD AND FACE: No signs of trauma. No ecchymosis, hematomas or skull depressions. No sinus tenderness. EYES: PERRLA, EOMI x 2, No injected conjunctiva, no nystagmus. EARS: Hearing grossly intact. Ear canals and tympanic membranes are within normal limits. MOUTH: Oropharynx within normal limits. NECK: Supple, trachea is midline, no adenopathy, no JVD, no carotid bruit, no c- spine tenderness, neck with full ROM. CHEST: Symmetric, no tenderness at palpation. Decreased breathe sounds bilaterally. LUNGS: Clear to auscultation bilaterally. No wheezing or crackles. Mild respiratory distress. Bilateral rales. CVS: Regular rate and rhythm, S1 and S2 present, no murmurs or gallops appreciated. ABDOMEN: Soft, non-tender. No signs of distention. No rebound no guarding, and no masses palpated. Bowel sounds are normal. EXTREMITIES: FROM in all major joints, bilateral plus 2 pedal edema, no cyanosis or clubbing. NEURO: Alert and oriented x 3. No acute neurological deficits. Speech is normal and follows commands. SKIN: Dry and warm Triage Information Reviewed: Yes Vital Signs On Initial Exam: Initial Vitals Temp Pulse Resp BP Pulse Ox 99.5 F 119 24 125/92 96 04/26/18 23:39 04/26/18 23:39 04/26/18 23:39 04/26/18 23:39 04/26/18 23:39 Vital Signs Reviewed: Yes Diagnostics - Vital Signs Vital Signs Temp Pulse Resp BP Pulse Ox 04/26/18 23:55 115 20 99 04/26/18 23:39 99.5 F 119 24 125/92 96 - Laboratory Result Diagrams: 04/27/18 00:11 04/27/18 00:11 Lab Statement: Any lab studies that have been ordered have been reviewed, and results considered in the medical decision making process. - Radiology CXR Radiology Interpretation Completed By: ED Physician - Bilateral basil infiltrate pnemonia. Pending official report. - EKG 0003 Cardiac Rate: Tachycardia - 114 BPM EKG Rhythm: Sinus Tachycardia EKG Interpretation: Normal axis. Normal interval. No ischemic changes Course/Dx - Course Course Of Treatment: Patient was not given IV fluid because of the possibility of CHF. Pt also has 2+ pedal edema. - Diagnoses Provider Diagnoses: COPD (chronic obstructive pulmonary disease), Pneumonia - Physician Notifications Discussed Care of Patient With: Pietro Saucedo Time Discussed With Above Provider: 01:13 Instructed by Provider To: Other - Accepts patient for admission. Discharge - Sign-Out/Discharge Documenting (check all that apply): Patient Departure - ADMIT - Discharge Plan Condition: Stable Disposition: ADMITTED TO [facility] Referrals: Johanne Hernandez MD [Primary Care Provider] -
[2018-04-27] MEDS ORDERED: Piperacillin/Tazobac ADVAN(*) 3.375 GM in NS 0.9% 100 ML* 100 ML IVPB ONE (00:07)
[2018-04-27 00:25] LABS: ABS Basophils 0.1 10^3/ul (0-0.2); ABS Eosinophils 0 10^3/ul (0-0.6); ABS Lymphocytes 1.3 10^3/ul (1.0-4.8); ABS Monocytes 0.8 10^3/ul (0-0.8); ABS Neutrophils 14.9 10^3/ul (1.5-7.7); ABS Nucleated RBC 0 10^3/ul; Eosinophil % 0.2 % (0-6); Hematocrit 36 % (35-47); Hemoglobin 11.9 g/dl (12.0-16.0); Lymphocyte % 7.4 % (25-47); Mean Corpuscular HGB Conc 33 g/dl (31-36); Mean Corpuscular Hemoglobin 30 pg (27-31); Mean Corpuscular Volume 91 fL (80-97); Mean Platelet Volume 7.3 um3 (7.4-10.4); Nucleated Red Blood Cells % 0; Platelet Count 242 10^3/ul (150-450); Red Blood Count 3.99 10^6/ul (4.00-5.40); Red Cell Distribution Width 15 % (10.5-15)
[2018-04-27 00:38] LABS: INR 0.92 (0.77-1.02)
[2018-04-27] MEDS ORDERED: Magnesium Sulfate IV 2 GM in NS 100 ML (Pharmacy Admixed) IV ONE (00:40)
[2018-04-27 00:41] LABS: EGFR Non-African American 49.6 (>60)
[2018-04-27] MEDS ORDERED: Albuterol 2.5 MG/3 ML NEB.SOL* (0.083%) INH ONE ×2 (00:51→06:18)
[2018-04-27] MEDS: Albuterol 2.5 MG/3 ML NEB.SOL* (0.083%) INH SCH ×2 (00:53→01:31)
[2018-04-27] MEDS ORDERED: NS 0.9% 1000 ML* 1,000 ML IV ONE (00:54)
[2018-04-27] MEDS ORDERED: Azithromycin IV(*) 500 MG in NS 0.9% 250 ML* 250 ML IVPB SCH (01:00)
--- OUTSIDE RECORDS SUMMARY | 2018-04-27 01:32 | XMS REPORT ---
:1960 External Reference #:[id number] Author Organization [facility] Address [address] [place] [address] [place] [address] Phone [phone] Care Team Providers Name Role Phone Johanne Hernandez MD Primary Care Physician Unavailable Payers Type Date Identification Numbers Payment Provider Subscriber Commercial Effective: Policy Number: [id number] BS Jessica Walsh 2011 PayID: [id number] [address] [address] PATR[place] Pleitez [address] Medigap Part B Effective: Policy Number: Blue Shield Ppo Lashawn Benz Jillian 2007 [id number] Expires: 2011 PayID: [id number] [address] [address] PATRICE Gomez [id number] Medigap Part B Effective: 2011 Policy Number: BS Jessica Walsh [id number] Expires: 2011 PayID: [id number] [address] [address] PATRICE Pleitez [address] Workers Compensation Effective: Group Number: Zenobiaevonne Benz Jillian 2014 EXT [id number] Onset: 2014 [address] [place] [address] Problems Date Description Provider Status Onset: 12/20/2013 Pure hyperglyceridemia Johanne Hernandez M.D. Active Onset: 12/20/2013 Type 2 diabetes mellitus Johanne Hernandez M.D. Active Onset: 12/20/2013 Obstructive sleep apnea syndrome Johanne Hernandez M.D. Active Onset: 12/20/2013 Hypothyroidism Johanne Hernandez M.D. Active Note: XRT for graves Onset: 07/14/2014 Obstructive sleep apnea of adult Richi Clemens M.D. Active Onset: 07/14/2014 Asthma without status asthmaticus Richi Clemens M.D. Active Onset: 11/13/2014 Endometrial carcinoma Johanne Hernandez M.D. Active Note: [id number] s/p hysterectomy & adjuvant XRT ( intravaginal bracytherapy ) Onset: 12/26/2014 Former heavy tobacco smoker Johanne Hernandez M.D. Active Note: 32 pk yr quit 1997 CTA chest nl in 09/19 Onset: 12/26/2014 Psoriasis Johanne Hernandez M.D. Active Note: stable Onset: 03/14/2016 Morbid obesity Andreina Pelayo MD Active Onset: 03/14/2016 Osteoarthritis of knee Johanne Hernandez M.D. Active Onset: 09/01/2017 Chronic obstructive lung disease Johanne Hernandez M.D. Active Onset: 12/26/2014 Hernia of anterior abdominal wall Johanne Hernandez M.D. Resolved Resolved: 12/20/2015 Note: 6.2 cm conting loops of bowel Family History Date Family Member(s) Problem(s) Comments General lung ca mother General breast ca sister at age 60 General Diabetes, Non Insulin Dependent sister ( age 62) General Bladder Cancer brother at age 63 Children 3 Social History Type Date Description Comments Marital Status Single Lives With Alone Has 3 children Occupation Currently Working [employer] ( personal needs ) Work Status Currently Working Cigarette Use Former Cigarette Smoker ETOH Use Denies alcohol use Smoking Patient is a former smoker 32 pk yr quit in 1997 Recreational Drug Use Denies Drug Use Daily Caffeine Consumes on average 1 cup of hot tea per day Exercise Type/Frequency Exercises rarely Exercise Type/Frequency Exercises sporadically walking Allergies, Adverse Reactions, Alerts Date Description Reaction Status Severity Comments 12/20/2013 Levaquin Urticaria active 09/09/2013 NKDA inactive Medications Medication Date Status Form Strength Qnty SIG Indications Ordering Provider Januvia 04/09 Active Tablets 100mg 90tab 1 by mouth E11.9 s every day Maulik Hernandez Lisinopril 04/09 Active Tablets 5mg 30tab 1 by mouth I10 s every day Maulik Hernandez Prednisone 04/02 Hx Tablets 10mg 30tab 30mg daily J44.1 s for 1 week, Katelin Pelayo 20mg daily 04/23 for 1 week, /2017 10 mg daily for 1 week Cholestyramine 08/21 Active Packet 4gm 1unit 4 gms every Johanne /2016 s day as David, needed M.DPaula Atorvastatin 06/21 Active Tablets 20mg 90tab take one E78.2 Johanne Calcium s tablet by David, mouth at M.D. bedtime Cardizem CD 10/16 Active Caps ER 120mg 90cap 1 by mouth R00.2 Johanne 24HR s every day Maulik Hernandez Symbicort 05/04 Active Aerosol 160-4.5mc 1unit 1 puffs J45.909 Andreina /2015 g/Act s puffs twice evonne Pelayo MD Lite 04/03 Active Device 1unit check Johanne Blood Glucose s fingerstick David, Monitoring three times M.D. System daily or as needed - DX: 250.00 Freestyle Lite 04/03 Active Strips 100un test up to Johanne Test its 3times a day David, or as needed M.D. dx code: 250.00 Freestyle 04/03 Active Misc 100un Test three Johanne Lancets its times daily David, or as needed M.D. - DX 250.00 Metformin HCL 08/10 Active Tablets 850mg 60tab take one s tablet by David mouth twice M.D. a day Albuterol Active Nebulizer (2.5mg/3M 225ml as needed 4 Andreina Sulfate / L) 0.083% times a day MD Pierce Ventolin HFA Active Aerosol 108(90Bas 1unit 2 puffs by Andreina / e) s mouth four Pierce, mcg/Act times a day as needed Mucinex Active Tablets ER 600mg 60tab 1 tab bid po Unknown 12HR s prn Imodium A-D Active Tablets 2mg Levothyroxine Active Tablets 175mcg 90tab take one Johanne Sodium s tablet by Hernandez mouth every M.D. day Bipap 00 Active Device use at at G47.33 Unknown /0000 bedtime Bipap Mask And 0000 Active Device bipap G47.33 Unknown Supplies /0000 supplies - headgear, cushion, tubing, filters, water chamber for sleep apnea dx G43.77 Doxycycline 04/02 Hx Capsules 100mg 14cap one tablet J44.1 Andreina Hyclate s twice daily Pierce, - for 7 days. 04/09 Januvia 09/01 Hx Tablets 50mg 90tab 1 by mouth E11.9 Johanne s every day David, - M.D. 04/09 Cephalexin 01/05 Hx Tablets 500mg 1 tab every Johanne /2016 6 hrs X 7 Hernandez, - days M.D. 01/12 Atorvastatin 12/18 Hx Tablets 20mg 90tab take one E78.2 Johanne s tablet by David, - mouth at M.D. 01/10 bedtime Januvia 12/18 Hx Tablets 25mg 30tab take one E11.9 Johanne s tablet by David, - mouth every M.D. /2016 Fluconazole 06/21 Hx Tablets 100mg 10tab 1 tab by 110.8 Johanne s mouth daily David, - x 10 days M.D. 09/27 Warfarin Sodium 04/25 Hx Tablets 10mg 60tab Take one by Johanne s mouth 5 days David, - a week M.D. 09/27 (takes 5 mg. 2 days a week) or as directed Freestyle Lite 04/03 Hx 100un use as Johanne Test Strip its directed Hernandez, - three times M.D. 04/03 daily or as needed dx: 250.00 Ferrous Fumarate 03/16 Hx Tablets 324mg 60tab 1 tab daily Johanne /2014 s David, - M.D. 12/18 Nathaniel Contour 03/16 Hx Strips 100un test three Johanne Blood Glucose its times daily Hernandez, Test Strips - or as needed M.D. 04/03 Nathaniel Microlet 03/16 Hx Misc 100un three times Johanne Lancets its daily or as Hernandez, - needed M.D. 04/03 Polytrim 01/30 Hx Solution 49111-4.1 1unit 1 drop both 372.00 Reid Unit/ML-% s eyes every , - four hours [employer] 02/04 while awake x's 5 days Mometasone 12/26 Hx Cream 0.1% 1unit apply to 691.8 Johanne Fur s affected David, - areas twice M.D. 03/15 a day days only Keflex 08/10 Hx Capsules 500mg 40cap 1 by mouth s four times a Ordering - day for 10 Provider 09/15 days. /2013 Olux 06/16 Hx Foam 0.05% 1unit apply daily 696.8 Johanne /2014 s X 10 days David - M.DPaula 08/10 Gemfibrozil 04/07 Hx Tablets 600mg 180ta Take One bs Tablet By David, - Mouth Twice M.D. 12/19 A Day /2015 Advair Diskus 12/20 Hx Aerosol 500-50mcg 1 puff bid V72.84 /Dose David - M.D. 06/21 Metformin HCL 12/20 Hx Tablets 500mg 180ta 1 po bid V72.84 bs David - M.DPaula 08/10 Metformin HCL 09/09 Hx Tablets 500mg 45tab 1 po bid X 1 V72.84 Marc Russell /2012 s week and Soheila Lim, - then 2 tab M.D.,FACP 12/20 in Am and tab in PM Advair Diskus 09/09 Hx Aerosol 250-50mcg 1unit 1 puff bid V72.84 Johanne /2013 /Dose s David - M.DPaula 12/20 Azithromycin Hx Tablets 250mg as directed - 12/20 Prednisone Hx Tablets 20mg 2 po qd - 12/20 Metformin HCL Hx Tablets 500mg 1 po qd - 09/09 Coumadin Hx Tablets 5mg 150ta as directed. bs Katelin Hernandez M.D. 09/27 Immunizations CPT Code Status Date Vaccine Reaction Lot # [id number] Given 08/18/2017 Influenza Virus Vaccine, Quadrivalent, Split, Preservative Free [id number] Given 07/23/2016 Influenza Virus Vaccine, Quadrivalent, [id number] Split Virus, [place] Use [address]86 Given 06/21/2015 Influenza Virus Vaccine, Quadrivalent, [id number] Split, Preservative Free 51913 Given 06/21/2015 Pneumococcal Conjugate Vaccine 13 [id number] Valent For Intramuscular Use 09343 Given 07/11/2014 Influenza Virus Vaccine, Quadrivalent, no reaction [id number] Split, Preservative Free 28716 Given 06/16/2014 Pneumonia Vaccine [id number] Vital Signs Date Vital Result Comment 04/10/2018 Height 61 inches 5'1" Respiratory Rate 20 /min Pain Level 9 04/09/2018 Height 61 inches 5'1" Weight 332.00 lb Heart Rate 83 /min BP Systolic Sitting 160 mmHg BP Diastolic Sitting 80 mmHg O2 % BldC Oximetry 95 % BMI (Body Mass Index) 62.7 kg/m2 04/02/2018 Height 61 inches 5'1" Weight 333.00 lb Heart Rate 88 /min BP Systolic Sitting 134 mmHg BP Diastolic Sitting 70 mmHg Respiratory Rate 14 /min O2 % BldC Oximetry 95 % BMI (Body Mass Index) 62.9 kg/m2 09/01/2017 Weight 329.00 lb Heart Rate 89 /min Body Temperature 97.8 F O2 % BldC Oximetry 95 % 04/01/2017 Height 61 inches 5'1" Weight 314.00 lb Heart Rate 93 /min BP Systolic 120 mmHg BP Diastolic 70 mmHg Body Temperature 97.5 F O2 % BldC Oximetry 96 % BMI (Body Mass Index) 59.3 kg/m2 02/25/2017 Height 61 inches 5'1" Weight 317.50 lb no shoes Heart Rate 86 /min BP Systolic Sitting 128 mmHg Lfa lrg cuff BP Diastolic Sitting 80 mmHg Lfa lrg cuff BP Systolic Standing 130 mmHg Lfa lrg cuff BP Diastolic Standing 84 mmHg Lfa lrg cuff Respiratory Rate 20 /min BMI (Body Mass Index) 60.0 kg/m2 07/24/2016 Height 61 inches 5'1" Weight 306.00 lb Heart Rate 106 /min BP Systolic Sitting 126 mmHg BP Diastolic Sitting 78 mmHg Respiratory Rate 18 /min Body Temperature 98.6 F BMI (Body Mass Index) 57.8 kg/m2 07/23/2016 Height 61 inches 5'1" Weight 309.00 lb Heart Rate 96 /min BP Systolic 146 mmHg BP Diastolic 74 mmHg BP Systolic Recheck 138 mmHg BP Diastolic Recheck 72 mmHg Body Temperature 99.1 F O2 % BldC Oximetry 97 % BMI (Body Mass Index) 58.4 kg/m2 03/14/2016 Height 61 inches 5'1" Weight 303.00 lb Heart Rate 78 /min BP Systolic Sitting 138 mmHg BP Diastolic Sitting 78 mmHg Respiratory Rate 16 /min O2 % BldC Oximetry 98 % BMI (Body Mass Index) 57.2 kg/m2 01/11/2016 Height 61 inches 5'1" Weight 303.00 lb Heart Rate 83 /min BP Systolic 140 mmHg BP Diastolic 70 mmHg Body Temperature 97.9 F O2 % BldC Oximetry 96 % BMI (Body Mass Index) 57.2 kg/m2 12/19/2015 Weight 311.00 lb Heart Rate 86 /min BP Systolic Sitting 151 mmHg BP Diastolic Sitting 73 mmHg O2 % BldC Oximetry 97 % 10/16/2015 Height 61 inches 5'1" Weight 307.00 lb Heart Rate 102 /min BP Systolic 132 mmHg Ra lower, reg cuff BP Diastolic 78 mmHg Ra lower, reg cuff BP Systolic Sitting 130 mmHg LA lower, reg cuff BP Diastolic Sitting 78 mmHg LA lower, reg cuff BP Systolic Standing 128 mmHg Ra lower, reg cuff BP Diastolic Standing 780 mmHg Ra lower, reg cuff Respiratory Rate 16 /min BMI (Body Mass Index) 58.0 kg/m2 09/27/2015 Weight 310.00 lb Heart Rate 92 /min BP Systolic Sitting 128 mmHg BP Diastolic Sitting 84 mmHg Respiratory Rate 14 /min Body Temperature 98.3 F O2 % BldC Oximetry 97 % 06/21/2015 Weight 297.00 lb Heart Rate 91 /min BP Systolic Sitting 128 mmHg BP Diastolic Sitting 62 mmHg Body Temperature 97.7 F O2 % BldC Oximetry 96 % 05/04/2015 Height 60.25 inches 5'0.25" Weight 298.00 lb Heart Rate 95 /min BP Systolic 128 mmHg BP Diastolic 80 mmHg Respiratory Rate 16 /min O2 % BldC Oximetry 98 % BMI (Body Mass Index) 57.7 kg/m2 04/11/2015 Height 60.25 inches 5'0.25" Weight 298.00 lb Heart Rate 87 /min BP Systolic 147 mmHg BP Diastolic 80 mmHg Body Temperature 98.5 F BMI (Body Mass Index) 57.7 kg/m2 03/15/2015 Height 60.25 inches 5'0.25" Weight 298.00 lb Heart Rate 90 /min BP Systolic Sitting 140 mmHg BP Diastolic Sitting 84 mmHg Body Temperature 98.3 F O2 % BldC Oximetry 96 % BMI (Body Mass Index) 57.7 kg/m2 01/30/2015 Weight 316.00 lb Heart Rate 100 /min BP Systolic Sitting 126 mmHg BP Diastolic Sitting 80 mmHg Body Temperature 97.3 F O2 % BldC Oximetry 94 % 12/26/2014 Height 60.25 inches 5'0.25" Weight 312.50 lb Heart Rate 93 /min BP Systolic Sitting 134 mmHg BP Diastolic Sitting 70 mmHg Body Temperature 97.9 F BMI (Body Mass Index) 60.5 kg/m2 09/16/2014 Height 60.25 inches 5'0.25" Weight 319.00 lb Heart Rate 80 /min BP Systolic Sitting 130 mmHg left forearm BP Diastolic Sitting 78 mmHg left forearm Respiratory Rate 16 /min Body Temperature 99.0 F O2 % BldC Oximetry 97 % Room air BMI (Body Mass Index) 61.8 kg/m2 08/10/2014 Weight 329.00 lb Heart Rate 72 /min BP Systolic Sitting 128 mmHg BP Diastolic Sitting 84 mmHg 07/14/2014 Height 60.25 inches 5'0.25" Weight 330.00 lb w/shoes Heart Rate 100 /min BP Systolic Sitting 140 mmHg L forearm BP Diastolic Sitting 68 mmHg L forearm Respiratory Rate 16 /min Body Temperature 100.4 F O2 % BldC Oximetry 95 % BMI (Body Mass Index) 63.9 kg/m2 Neck Circumference in inches 17 07/11/2014 Height 60.25 inches 5'0.25" Weight 330.00 lb Heart Rate 88 /min BP Systolic Sitting 134 mmHg BP Diastolic Sitting 82 mmHg BMI (Body Mass Index) 63.9 kg/m2 06/16/2014 Height 60.25 inches 5'0.25" Weight 324.50 lb Heart Rate 93 /min BP Systolic Sitting 126 mmHg BP Diastolic Sitting 76 mmHg BMI (Body Mass Index) 62.8 kg/m2 04/07/2014 Weight 318.00 lb Heart Rate 102 /min BP Systolic Sitting 132 mmHg BP Diastolic Sitting 80 mmHg 12/20/2013 Height 60.25 inches 5'0.25" Weight 328.00 lb Heart Rate 79 /min BP Systolic Standing 128 mmHg BP Diastolic Standing 68 mmHg Body Temperature 97.2 F O2 % BldC Oximetry 94 % BMI (Body Mass Index) 63.5 kg/m2 09/09/2013 Height 60.25 inches 5'0.25" Weight 332.00 lb Heart Rate 93 /min BP Systolic Sitting 110 mmHg BP Diastolic Sitting 82 mmHg Body Temperature 98.2 F BMI (Body Mass Index) 64.3 kg/m2 Results Test Date Test Result H/L Range Note Laboratory test finding 04/09/2018 Hemoglobin A1c 7.3 High 5-7 Laboratory test finding 09/01/2017 Hemoglobin A1c 6.8 5-7 Rapid Influenza A & B 08/23/2017 Influenza A Molecular NEGATIVE Negative 1 Molecular Influenza B Molecular NEGATIVE Negative Laboratory test 08/23/2017 Rapid Influenza A B SEE RESULT BELOW 2 finding Antigen Laboratory test 06/17/2017 TSH (Thyroid Stim 3.25 mcIU/mL 0.34-5.60 finding Horm) T3 Free 2.50 pg/mL 2.5-3.9 Free T4 (Free Thyroxine) 0.99 ng/dL 0.61-1.12 Laboratory test 03/27/2017 Hemoglobin A1c (Glyco 6.3 % High Less than 6.0 3, 4 finding HGB) Hepatitis C Antibody Nonreactive Nonreactive 3 Lipid Profile (Trig/Chol/HDL) 03/27/2017 Triglycerides 254 mg/dL 3, 5 Cholesterol 158 mg/dL 3, 6 HDL Cholesterol 46.6 mg/dL 3, 7 LDL Cholesterol 61 mg/dL 3, 8 Liver Function Panel 07/23/2016 Total Protein 6.5 g/dL 6.4-8.9 Albumin 3.7 g/dL 3.2-5.2 Globulin 2.8 g/dL 2-4 Albumin/Globulin Ratio 1.3 1-3 Total Bilirubin 0.40 mg/dL 0.2-1.0 Direct Bilirubin 0.10 mg/dL 0.03-0.18 Indirect Bilirubin 0.3 mg/dL 0.3-1.0 Alkaline Phosphatase 113 U/L High 34-104 Alt 33 U/L 7-52 Ast 23 U/L 13-39 Urine Microalbumin Random 07/23/2016 Urine Creatinine 145.54 mg/dL Ur Microalbumin (mg/L) < 15.0 mg/L Urine Microalbumin/Creatinine TNP ug/mg <31 9 Lipid Profile (Trig/Chol/HDL) 07/01/2016 Triglycerides 132 mg/dL 10 Cholesterol 207 mg/dL 11 HDL Cholesterol 33.5 mg/dL 12 LDL Cholesterol 147 mg/dL 13 Laboratory test 07/01/2016 Hemoglobin A1c (Glyco 6.0 % Less than 6.0 14 finding HGB) CBC Auto Diff 2016 White Blood Count 9.1 10^3/uL 3.5-10.8 Red Blood Count 4.15 10^6/uL 4.0-5.4 Hemoglobin 12.7 g/dL 12.0-16.0 Hematocrit 39 % 35-47 Mean Corpuscular Volume 94 fL 80-97 Mean Corpuscular Hemoglobin 31 pg 27-31 Mean Corpuscular HGB Conc 33 g/dL 31-36 Red Cell Distribution Width 14 % 10.5-15 Platelet Count 371 10^3/uL 150-450 Mean Platelet Volume 8 um3 7.4-10.4 Abs Neutrophils 6.8 10^3/uL 1.5-7.7 Abs Lymphocytes 1.5 10^3/uL 1.0-4.8 Abs Monocytes 0.6 10^3/uL 0-0.8 Abs Eosinophils 0.2 10^3/uL 0-0.6 Abs Basophils 0.1 10^3/uL 0-0.2 Abs Nucleated RBC 0.01 10^3/uL Granulocyte % 74.4 % 38-83 Lymphocyte % 16.1 % Low 25-47 Monocyte % 6.9 % 1-9 Eosinophil % 2.0 % 0-6 Basophil % 0.6 % 0-2 Nucleated Red Blood Cells % 0.1 Urinalysis Profile 2016 Urine Color Straw Urine Appearance Clear Urine Specific [place] 1.008 Low 1.010-1.030 Urine pH 5.0 5-9 Urine Urobilinogen Negative Negative Urine Ketones Negative Negative Urine Protein Negative Negative Urine Leukocytes Negative Negative Urine Blood Negative Negative Urine Nitrite Negative Negative Urine Bilirubin Negative Negative Urine Glucose Negative Negative Inr/Protime 2016 Inr 0.96 0.89-1.11 Laboratory test finding 2016 Partial Thrombo Time 52.7 seconds High 26.0-36.3 PTT D Dimer Quantitative < 200 ng/mL Less Than 230 15 Lactic Acid 1.1 mmol/L 0.5-2.0 16 Troponin-I (TnI) 0.00 ng/mL <0.03 17 Comp Metabolic Panel 2016 Sodium 135 mmol/L 133-145 Potassium 3.9 mmol/L 3.5-5.0 Chloride 102 mmol/L 101-111 Co2 Carbon Dioxide 23 mmol/L 22-32 Anion Gap 10 mmol/L 2-11 Glucose 153 mg/dL High 70-100 Blood Urea Nitrogen 22 mg/dL 6-24 Creatinine 0.74 mg/dL 0.51-0.95 BUN/Creatinine Ratio 29.7 High 8-20 Calcium 9.4 mg/dL 8.6-10.3 Total Protein 7.6 g/dL 6.4-8.9 Albumin 4.0 g/dL 3.2-5.2 Globulin 3.6 g/dL 2-4 Albumin/Globulin Ratio 1.1 1-3 Total Bilirubin 0.40 mg/dL 0.2-1.0 Alkaline Phosphatase 81 U/L 34-104 Alt 9 U/L 7-52 Ast 11 U/L Low 13-39 Egfr Non- 80.6 >60 Egfr 103.7 >60 18 Laboratory test finding 2016 Magnesium 2.1 mg/dL 1.9-2.7 Amylase 35 U/L 29-103 C Reactive Protein 6.75 mg/L High < 5.00 19 TSH (Thyroid Stim Horm) 1.47 ?IU/mL 0.34-5.60 Lipase 81 U/L 11.0-82.0 Laboratory test finding 02/15/2016 HPV Rna Ww/Reflex Negative Negative 20, 21 Genotype Cytology SEE RESULT BELOW 20, 22 Comp Metabolic Panel 01/06/2016 Sodium 135 mmol/L 133-145 Potassium 4.3 mmol/L 3.5-5.0 Chloride 99 mmol/L Low 101-111 Co2 Carbon Dioxide 29 mmol/L 22-32 Anion Gap 7 mmol/L 2-11 Glucose 131 mg/dL High 70-100 Blood Urea Nitrogen 21 mg/dL 6-24 Creatinine 0.79 mg/dL 0.51-0.95 BUN/Creatinine Ratio 26.6 High 8-20 Calcium 9.7 mg/dL 8.6-10.3 Total Protein 7.8 g/dL 6.4-8.9 Albumin 4.2 g/dL 3.2-5.2 Globulin 3.6 g/dL 2-4 Albumin/Globulin Ratio 1.2 1-3 Total Bilirubin 0.40 mg/dL 0.2-1.0 Alkaline Phosphatase 85 U/L 34-104 Alt 11 U/L 7-52 Ast 11 U/L Low 13-39 Egfr Non- 75.0 >60 Egfr 96.5 >60 23 CBC Auto Diff 01/06/2016 White Blood Count 6.9 10^3/uL 3.5-10.8 Red Blood Count 4.42 10^6/uL 4.0-5.4 Hemoglobin 13.6 g/dL 12.0-16.0 Hematocrit 41 % 35-47 Mean Corpuscular Volume 94 fL 80-97 Mean Corpuscular Hemoglobin 31 pg 27-31 Mean Corpuscular HGB Conc 33 g/dL 31-36 Red Cell Distribution Width 14 % 10.5-15 Platelet Count 372 10^3/uL 150-450 Mean Platelet Volume 8 um3 7.4-10.4 Abs Neutrophils 4.3 10^3/uL 1.5-7.7 Abs Lymphocytes 1.9 10^3/uL 1.0-4.8 Abs Monocytes 0.5 10^3/uL 0-0.8 Abs Eosinophils 0.2 10^3/uL 0-0.6 Abs Basophils 0.1 10^3/uL 0-0.2 Abs Nucleated RBC 0.01 10^3/uL Granulocyte % 61.7 % 38-83 Lymphocyte % 26.9 % 25-47 Monocyte % 7.9 % 1-9 Eosinophil % 2.7 % 0-6 Basophil % 0.8 % 0-2 Nucleated Red Blood Cells % 0.1 Laboratory test 01/06/2016 D Dimer Quantitative < 200 ng/mL Less Than 230 24 finding Laboratory test 12/19/2015 Hemoglobin A1c 7.2 High 5-7 finding CBC Auto Diff 09/22/2015 White Blood Count 9.6 10^3/uL 3.5-10.8 Red Blood Count 4.44 10^6/uL 4.0-5.4 Hemoglobin 13.7 g/dL 12.0-16.0 Hematocrit 41 % 35-47 Mean Corpuscular Volume 93 fL 80-97 Mean Corpuscular Hemoglobin 31 pg 27-31 Mean Corpuscular HGB Conc 33 g/dL 31-36 Red Cell Distribution Width 15 % 10.5-15 Platelet Count 360 10^3/uL 150-450 Mean Platelet Volume 7 um3 Low 7.4-10.4 Abs Neutrophils 6.8 10^3/uL 1.5-7.7 Abs Lymphocytes 1.9 10^3/uL 1.0-4.8 Abs Monocytes 0.7 10^3/uL 0-0.8 Abs Eosinophils 0.1 10^3/uL 0-0.6 Abs Basophils 0.1 10^3/uL 0-0.2 Abs Nucleated RBC 0.01 10^3/uL Granulocyte % 70.9 % 38-83 Lymphocyte % 20.3 % Low 25-47 Monocyte % 6.9 % 1-9 Eosinophil % 1.3 % 0-6 Basophil % 0.6 % 0-2 Nucleated Red Blood Cells % 0.1 Inr/Protime 09/22/2015 Inr 0.97 0.89-1.11 Laboratory test finding 09/22/2015 Lactic Acid 1.6 mmol/L 0.5-2.0 25 Comp Metabolic Panel 09/22/2015 Sodium 136 mmol/L 133-145 Potassium 4.5 mmol/L 3.5-5.0 Chloride 98 mmol/L Low 101-111 Co2 Carbon Dioxide 30 mmol/L 22-32 Anion Gap 8 mmol/L 2-11 Glucose 194 mg/dL High 70-100 Blood Urea Nitrogen 23 mg/dL 6-24 Creatinine 0.88 mg/dL 0.51-0.95 BUN/Creatinine Ratio 26.1 High 8-20 Calcium 10.0 mg/dL 8.6-10.3 Total Protein 7.9 g/dL 6.4-8.9 Albumin 4.3 g/dL 3.2-5.2 Globulin 3.6 g/dL 2-4 Albumin/Globulin Ratio 1.2 1-3 Total Bilirubin 0.50 mg/dL 0.2-1.0 Alkaline Phosphatase 81 U/L 34-104 Alt 11 U/L 7-52 Ast 10 U/L Low 13-39 Egfr Non- 66.2 >60 Egfr 85.2 >60 26 Laboratory test finding 09/22/2015 Magnesium 2.1 mg/dL 1.9-2.7 Troponin-I (TnI) 0.00 ng/mL <0.03 27 TSH (Thyroid Stim Horm) 1.41 ?IU/mL 0.34-5.60 Laboratory test finding 08/08/2015 Inr/Protime 1.97 High 0.89-1.11 28 Laboratory test finding 08/01/2015 Inr/Protime 2.06 High 0.78-1.07 Inr/Protime 07/25/2015 Inr 2.33 High 0.78-1.07 Laboratory test finding 07/18/2015 Inr/Protime 3.16 High 0.78-1.07 Laboratory test finding 07/11/2015 Inr/Protime 1.74 High 0.78-1.07 Laboratory test finding 07/03/2015 Inr/Protime 1.79 High 0.78-1.07 Laboratory test finding 06/21/2015 Hemoglobin A1c 6.8 5-7 Laboratory test finding 06/16/2015 Inr/Protime 2.29 High 0.78-1.07 Laboratory test finding 06/01/2015 Inr/Protime 2.23 High 0.78-1.07 Laboratory test finding 05/25/2015 Inr/Protime 1.57 High 0.78-1.07 Laboratory test finding 05/11/2015 Inr/Protime 2.98 High 0.78-1.07 Laboratory test finding 04/20/2015 Inr/Protime 2.06 High 0.78-1.07 Inr/Protime 04/13/2015 Inr 2.13 High 0.78-1.07 Inr/Protime 04/10/2015 Inr 1.61 High 0.78-1.07 Protime W/ Inr 04/06/2015 Inr 1.3 Inr/Protime 03/30/2015 Inr 1.61 High 0.78-1.07 CBC Auto Diff 03/15/2015 White Blood Count 7.3 10^3/uL 4.8-10.8 Red Blood Count 3.84 10^6/uL Low 4.0-5.4 Hemoglobin 11.3 g/dL Low 12.0-16.0 Hematocrit 35 % 35-47 Mean Corpuscular Volume 92 fL 80-97 Mean Corpuscular Hemoglobin 30 pg 27-31 Mean Corpuscular HGB Conc 32 g/dL 31-36 Red Cell Distribution Width 16 % High 10.5-15 Platelet Count 453 10^3/uL High 150-450 Mean Platelet Volume 7 um3 Low 7.4-10.4 Abs Neutrophils 4.2 10^3/uL 1.5-7.7 Abs Lymphocytes 2.0 10^3/uL 1.0-4.8 Abs Monocytes 0.6 10^3/uL 0-0.8 Abs Eosinophils 0.4 10^3/uL 0-0.6 Abs Basophils 0.1 10^3/uL 0-0.2 Abs Nucleated RBC 0.01 10^3/uL Granulocyte % 58.0 % 38-83 Lymphocyte % 27.1 % 25-47 Monocyte % 8.4 % 1-9 Eosinophil % 5.6 % 0-6 Basophil % 0.9 % 0-2 Nucleated Red Blood Cells % 0.1 Basic Metabolic Panel 03/15/2015 Sodium 134 mmol/L 133-145 Potassium 4.7 mmol/L 3.5-5.0 Chloride 99 mmol/L Low 101-111 Co2 Carbon Dioxide 29 mmol/L 22-32 Anion Gap 6 mmol/L 2-11 Glucose 160 mg/dL High 70-100 Blood Urea Nitrogen 21 mg/dL 6-24 Creatinine 0.62 mg/dL 0.51-0.95 BUN/Creatinine Ratio 33.9 High 8-20 Calcium 9.8 mg/dL 8.6-10.3 Egfr Non- 99.2 >60 Egfr 127.6 >60 29 Laboratory test finding 03/15/2015 Magnesium 2.1 mg/dL 1.9-2.7 Protime W/ Inr 03/15/2015 Prothrombin Time 27.8 Inr 2.3 Laboratory test finding 01/13/2015 Free T4 0.75 ng/mL 0.61-1.12 30, 31 Free T3 2.70 pg/mL 2.5-3.9 30, 32 TSH (Thyroid Stimulating Horm) 1.66 IU/mL 0.34-5.60 30, 33 Lipid Profile (Trig/Chol/HDL) 01/13/2015 Triglycerides 156 mg/dL 30, 34 Cholesterol 218 mg/dL 30, 35 HDL Cholesterol 42.7 mg/dL 30, 36 LDL Cholesterol 144 mg/dL 30, 37 CBC Auto Diff 01/13/2015 White Blood Count 8.1 10^3/uL 4.8-10.8 30 Red Blood Count 4.34 10^6/uL 4.0-5.4 30 Hemoglobin 13.2 g/dL 12.0-16.0 30 Hematocrit 40 % 35-47 30 Mean Corpuscular Volume 92 fL 80-97 30 Mean Corpuscular Hemoglobin 30 pg 27-31 30 Mean Corpuscular HGB Conc 33 g/dL 31-36 30 Red Cell Distribution Width 15 % 10.5-15 30 Platelet Count 338 10^3/uL 150-450 30 Mean Platelet Volume 8 um3 7.4-10.4 30 Abs Neutrophils 6.0 10^3/uL 1.5-7.7 30 Abs Lymphocytes 1.4 10^3/uL 1.0-4.8 30 Abs Monocytes 0.5 10^3/uL 0-0.8 30 Abs Eosinophils 0.1 10^3/uL 0-0.6 30 Abs Basophils 0.1 10^3/uL 0-0.2 30 Abs Nucleated RBC 0 10^3/uL 30 Granulocyte % 74.3 % 38-83 30 Lymphocyte % 16.8 % Low 25-47 30 Monocyte % 6.7 % 1-9 30 Eosinophil % 1.4 % 0-6 30 Basophil % 0.8 % 0-2 30 Nucleated Red Blood Cells % 0 30 Urine Microalbumin Random 01/13/2015 Ur Microalbumin (mg/L) 9.0 mg/L 30 Urine Creatinine 74.15 mg/dL 30 Urine Microalbumin/Creatinine 12.1 Less Than 31 30 Laboratory test finding 12/26/2014 Hemoglobin A1c 6.7 5-7 Laboratory test finding 12/26/2014 TSH (Thyroid Stim Horm) <pending> Free T4 (Free Thyroxine) <pending> T3 Free <pending> CBC Auto Diff 11/16/2014 White Blood Count 15.9 10^3/uL High 4.8-10.8 Red Blood Count 4.79 10^6/uL 4.0-5.4 Hemoglobin 14.2 g/dL 12.0-16.0 Hematocrit 43 % 35-47 Mean Corpuscular Volume 91 fL 80-97 Mean Corpuscular Hemoglobin 30 pg 27-31 Mean Corpuscular HGB Conc 33 g/dL 31-36 Red Cell Distribution Width 15 % 10.5-15 Platelet Count 469 10^3/uL High 150-450 Mean Platelet Volume 8 um3 7.4-10.4 Abs Neutrophils 13.5 10^3/uL High 1.5-7.7 Abs Lymphocytes 1.6 10^3/uL 1.0-4.8 Abs Monocytes 0.6 10^3/uL 0-0.8 Abs Eosinophils 0.1 10^3/uL 0-0.6 Abs Basophils 0.1 10^3/uL 0-0.2 Abs Nucleated RBC 0.01 10^3/uL Granulocyte % 84.7 % High 38-83 Lymphocyte % 10.1 % Low 25-47 Monocyte % 3.9 % 1-9 Eosinophil % 0.8 % 0-6 Basophil % 0.5 % 0-2 Nucleated Red Blood Cells % 0 Comp Metabolic Panel 11/16/2014 Sodium 135 mmol/L 133-145 Potassium 3.8 mmol/L 3.5-5.0 Chloride 101 mmol/L 101-111 Co2 Carbon Dioxide 24 mmol/L 22-32 Anion Gap 10 mmol/L 2-11 Glucose 295 mg/dL High 70-100 Blood Urea Nitrogen 13 mg/dL 6-24 Creatinine 0.83 mg/dL 0.51-0.95 BUN/Creatinine Ratio 15.7 8-20 Calcium 9.3 mg/dL 8.6-10.3 Total Protein 7.1 g/dL 6.4-8.9 Albumin 3.9 g/dL 3.2-5.2 Globulin 3.2 g/dL 2-4 Albumin/Globulin Ratio 1.2 1-3 Total Bilirubin 0.40 mg/dL 0.2-1.0 Alkaline Phosphatase 78 U/L 34-104 Alt 10 U/L 7-52 Ast 11 U/L Low 13-39 Egfr Non- 71.1 >60 Egfr 91.5 >60 38 Laboratory test finding 11/16/2014 Lipase 103 U/L High 11.0-82.0 C Reactive Protein 3.68 mg/L < 5.00 39 Blood Culture 11/08/2014 Blood Culture (SEE NOTE) 40 CBC Auto Diff 11/08/2014 White Blood Count 6.8 10^3/uL 4.8-10.8 Red Blood Count 3.92 10^6/uL Low 4.0-5.4 Hemoglobin 11.7 g/dL Low 12.0-16.0 Hematocrit 35 % 35-47 Mean Corpuscular Volume 90 fL 80-97 Mean Corpuscular Hemoglobin 30 pg 27-31 Mean Corpuscular HGB Conc 33 g/dL 31-36 Red Cell Distribution Width 15 % 10.5-15 Platelet Count 301 10^3/uL 150-450 Mean Platelet Volume 8 um3 7.4-10.4 Abs Neutrophils 5.1 10^3/uL 1.5-7.7 Abs Lymphocytes 0.8 10^3/uL Low 1.0-4.8 Abs Monocytes 0.8 10^3/uL 0-0.8 Abs Eosinophils 0 10^3/uL 0-0.6 Abs Basophils 0 10^3/uL 0-0.2 Abs Nucleated RBC 0 10^3/uL Granulocyte % 75.0 % 38-83 Lymphocyte % 12.5 % Low 25-47 Monocyte % 11.4 % High 1-9 Eosinophil % 0.6 % 0-6 Basophil % 0.5 % 0-2 Nucleated Red Blood Cells % 0 Comp Metabolic Panel 11/08/2014 Sodium 133 mmol/L 133-145 Potassium 4.0 mmol/L 3.5-5.0 Chloride 101 mmol/L 101-111 Co2 Carbon Dioxide 25 mmol/L 22-32 Anion Gap 7 mmol/L 2-11 Glucose 162 mg/dL High 70-100 Blood Urea Nitrogen 18 mg/dL 6-24 Creatinine 0.68 mg/dL 0.51-0.95 BUN/Creatinine Ratio 26.5 High 8-20 Calcium 9.6 mg/dL 8.6-10.3 Total Protein 7.0 g/dL 6.4-8.9 Albumin 3.9 g/dL 3.2-5.2 Globulin 3.1 g/dL 2-4 Albumin/Globulin Ratio 1.3 1-3 Total Bilirubin 0.40 mg/dL 0.2-1.0 Alkaline Phosphatase 77 U/L 34-104 Alt 11 U/L 7-52 Ast 11 U/L Low 13-39 Egfr Non- 89.5 >60 Egfr 115.1 >60 41 Laboratory test finding 11/08/2014 Lactic Acid 1.0 mmol/L 0.5-2.2 Blood Culture (SEE NOTE) 42 Rapid Influenza A B 11/08/2014 Rapid Influenza A B (SEE NOTE) 43 Antigen Antigen Laboratory test finding 09/20/2014 Blood Urea Nitrogen 13 mg/dL 6-24 Creatinine 09/20/2014 Creatinine 0.66 mg/dL 0.51-0.95 Egfr Non- 92.6 >60 Egfr 119.1 >60 44 CBC Auto Diff 08/05/2014 White Blood Count 23.2 10^3/uL High 4.8-10.8 Red Blood Count 4.06 10^6/uL 4.0-5.4 Hemoglobin 12.5 g/dL 12.0-16.0 Hematocrit 38 % 35-47 Mean Corpuscular Volume 92 fL 80-97 Mean Corpuscular Hemoglobin 31 pg 27-31 Mean Corpuscular HGB Conc 33 g/dL 31-36 Red Cell Distribution Width 14 % 10.5-15 Platelet Count 349 10^3/uL 150-450 Mean Platelet Volume 7 um3 Low 7.4-10.4 Abs Neutrophils 20.9 10^3/uL High 1.5-7.7 Abs Lymphocytes 1.1 10^3/uL 1.0-4.8 Abs Monocytes 1.0 10^3/uL High 0-0.8 Abs Eosinophils 0 10^3/uL 0-0.6 Abs Basophils 0.1 10^3/uL 0-0.2 Abs Nucleated RBC 0 10^3/uL Granulocyte % 90.4 % High 38-83 Lymphocyte % 4.9 % Low 25-47 Monocyte % 4.4 % 1-9 Eosinophil % 0 % 0-6 Basophil % 0.3 % 0-2 Nucleated Red Blood Cells % 0 Comp Metabolic Panel 08/05/2014 Sodium 133 mmol/L 133-145 Potassium 4.3 mmol/L 3.7-5.6 Chloride 96 mmol/L Low 101-111 Co2 Carbon Dioxide 28 mmol/L 22-32 Anion Gap 9 mmol/L 2-11 Glucose 206 mg/dL High 70-100 Blood Urea Nitrogen 17 mg/dL 6-24 Creatinine 0.89 mg/dL 0.51-0.95 BUN/Creatinine Ratio 19.1 8-20 Calcium 9.2 mg/dL 8.6-10.3 Total Protein 7.3 g/dL 6.4-8.9 Albumin 3.8 g/dL 3.2-5.2 Globulin 3.5 g/dL 2-4 Albumin/Globulin Ratio 1.1 1-3 Total Bilirubin 0.60 mg/dL 0.2-1.0 Alkaline Phosphatase 83 U/L 34-104 Alt 13 U/L 7-52 Ast 16 U/L 13-39 Egfr Non- 65.6 >60 Egfr 84.4 >60 45 Inr/Protime 08/05/2014 Inr 1.15 High 0.85-1.06 Laboratory test finding 08/05/2014 Activated Partial 42.9 seconds High 24.0-36.1 Thrombo Time Lactic Acid 1.9 mmol/L 0.5-2.2 Arterial Blood Gas 07/14/2014 PH Arterial 7.37 7.35-7.45 46 Pco2 Arterial 48 mmHg High 35-45 46 Po2 Arterial 59 mmHg Low 80-100 46 O2 Saturation Arterial 90.3 % Low 95-98 46 Base Excess Arterial 1.7 -2.0-2.0 46, 47 Hco3 Arterial 26.0 mmol/L 19-31 46 Order 07/11/2014 EKG <pending> Lipid Profile (Trig/Chol/HDL) 06/24/2014 Triglycerides 172 mg/dL 48 Cholesterol 218 mg/dL 49 HDL Cholesterol 39.3 mg/dL 50 LDL Cholesterol 144 mg/dL 51 Hepatitis B Jacob AB 06/24/2014 Hepatitis B Surface AB Nonreactive Nonreactive Titer Hep B Surf AB Level < 3.10 mIU/mL <12 52 CBC Auto Diff 06/24/2014 White Blood Count 7.5 10^3/uL 4.8-10.8 Red Blood Count 4.07 10^6/uL 4.0-5.4 Hemoglobin 12.9 g/dL 12.0-16.0 Hematocrit 38 % 35-47 Mean Corpuscular Volume 94 fL 80-97 Mean Corpuscular Hemoglobin 32 pg High 27-31 Mean Corpuscular HGB Conc 34 g/dL 31-36 Red Cell Distribution Width 14 % 10.5-15 Platelet Count 338 10^3/uL 150-450 Mean Platelet Volume 7 um3 Low 7.4-10.4 Abs Neutrophils 5.0 10^3/uL 1.5-7.7 Abs Lymphocytes 1.7 10^3/uL 1.0-4.8 Abs Monocytes 0.6 10^3/uL 0-0.8 Abs Eosinophils 0.2 10^3/uL 0-0.6 Abs Basophils 0.1 10^3/uL 0-0.2 Abs Nucleated RBC 0 10^3/uL Granulocyte % 66.3 % 38-83 Lymphocyte % 23.3 % Low 25-47 Monocyte % 7.5 % 1-9 Eosinophil % 2.2 % 0-6 Basophil % 0.7 % 0-2 Nucleated Red Blood Cells % 0 Laboratory test finding 06/16/2014 Hemoglobin A1c 6.7 5-7 Lipid Profile (Trig/Chol/HDL) 01/26/2014 Triglycerides 357 mg/dL 53, 54 Cholesterol 217 mg/dL 53, 55 HDL Cholesterol 42.4 mg/dL 53, 56 LDL Cholesterol 103 mg/dL 53, 57 Laboratory test 01/26/2014 TSH (Thyroid 2.11 IU/mL 0.34-5.60 53, 58 finding Stimulating Horm) Laboratory test 12/20/2013 Hemoglobin A1c 6.9 5-7 finding Urinalysis 11/30/2013 Urine Color Yellow Urine Appearance Clear Urine Specific [place] 1.005 Low 1.010-1.030 Urine Esterase Negative Negative Urine Nitrate Negative Negative Urine Urobilinogen Negative E.U./dL Negative Urine Protein Negative mg/dL Negative Urine pH 5.5 5-9 Urine Blood Negative Negative Urine Ketones Negative mg/dL Negative Urine Bilirubin Negative Negative Urine Glucose Negative mg/dL Negative Urine Culture And Sensitivities 11/30/2013 Urine Culture (SEE NOTE) 59 Blood Culture 11/30/2013 Blood Culture (SEE NOTE) 60 Laboratory test finding 11/30/2013 Lactic Acid 1.2 mmol/L 0.5-2.2 Blood Culture (SEE NOTE) 61 Rapid Influenza A B 11/30/2013 Rapid Influenza A B (SEE NOTE) 62 Antigen Antigen CBC Auto Diff 11/30/2013 White Blood Count 9.5 10^3/uL 4.8-10.8 Red Blood Count 4.20 10^6/uL 4.0-5.4 Hemoglobin 12.7 g/dL 12.0-16.0 Hematocrit 39 % 35-47 Mean Corpuscular Volume 93 fL 80-97 Mean Corpuscular Hemoglobin 30 pg 27-31 Mean Corpuscular HGB Conc 33 g/dL 31-36 Red Cell Distribution Width 14 % 10.5-15 Platelet Count 328 10^3/uL 150-450 Mean Platelet Volume 8 um3 7.4-10.4 Abs Neutrophils 6.1 10^3/uL 1.5-7.7 Abs Lymphocytes 2.6 10^3/uL 1.0-4.8 Abs Monocytes 0.6 10^3/uL 0-0.8 Abs Eosinophils 0.2 10^3/uL 0-0.6 Abs Basophils 0.1 10^3/uL 0-0.2 Abs Nucleated RBC 0.01 10^3/uL Granulocyte % 64.0 % 38-83 Lymphocyte % 27.1 % 25-47 Monocyte % 6.3 % 1-9 Eosinophil % 1.7 % 0-6 Basophil % 0.9 % 0-2 Nucleated Red Blood Cells % 0.1 Comp Metabolic Panel 11/30/2013 Sodium 136 mmol/L 133-145 Potassium 4.3 mmol/L 3.7-5.6 Chloride 100 mmol/L Low 101-111 Co2 Carbon Dioxide 28 mmol/L 22-32 Anion Gap 8 mmol/L 2-11 Glucose 151 mg/dL High 70-100 Blood Urea Nitrogen 12 mg/dL 6-24 Creatinine 0.73 mg/dL 0.51-0.95 BUN/Creatinine Ratio 16.4 8-20 Calcium 9.1 mg/dL 8.6-10.3 Total Protein 6.8 g/dL 6.4-8.9 Albumin 3.9 g/dL 3.2-5.2 Globulin 2.9 g/dL 2-4 Albumin/Globulin Ratio 1.3 1-3 Total Bilirubin 0.70 mg/dL 0.2-1.0 Alkaline Phosphatase 76 U/L 34-104 Alt 20 U/L 7-52 Ast 16 U/L 13-39 Egfr Non- 82.8 >60 Egfr 106.4 >60 63 Inr/Protime 11/30/2013 Inr 0.91 0.85-1.06 Laboratory test finding 11/30/2013 Activated Partial 28.5 seconds 24.0- 36.1 Thrombo Time Laboratory test finding 09/17/2013 TSH (Thyroid 3.58 miu/mL 0.34-5.60 64 Stimulating Horm) Urine Microalbumin 09/17/2013 Ur Microalbumin (mg/L) 23.0 mg/L 65 Random Urine Creatinine 160.2 mg/dL Urine Microalbumin/Creatinine 14.4 Less Than 31 Lipid Profile (Trig/Chol/HDL) 09/17/2013 Triglycerides 751 mg/dL High 40- 200 Cholesterol 271 mg/dL High Less than 200 HDL Cholesterol 50 mg/dL 40-60 66 Cholesterol/HDL Ratio 5.4 Average High 1-4.44 LDL Cholesterol (SEE NOTE) Less Than 100 67 Comp Metabolic Panel 09/17/2013 Sodium 137 mmol/L 133-145 Potassium 4.3 mmol/L 3.5-5.0 Chloride 102 mmol/L 101-111 Co2 Carbon Dioxide 27.0 mmol/L 22-32 Anion Gap 8.0 mmol/L 2-11 Glucose 169 mg/dL High 70-100 Blood Urea Nitrogen 9 mg/dL 6-24 Creatinine 0.70 mg/dL 0.50-1.40 BUN/Creatinine Ratio 12.9 8-20 Calcium 9.0 mg/dL 8.1-9.9 Total Protein 6.2 g/dL 6.2-8.1 Albumin 3.6 g/dL 3.6-5.4 Globulin 2.6 g/dL 2-4 Albumin/Globulin Ratio 1.4 1-3 Total Bilirubin 0.8 mg/dL 0.4-1.5 Alkaline Phosphatase 61 U/L 30-110 Alt 40 U/L 14-54 Ast 32 U/L 12-42 Egfr Non- 86.9 >60 Egfr 111.7 >60 68 Laboratory test finding 09/09/2013 Hemoglobin A1c 7.2 High 5-7 Laboratory test finding 07/08/2010 Hemoglobin A1c 5.8 % Less Than 6.0 69 , 70 1 Psychological Operations Specialist: [id number] 2 SEE RESULT BELOW Name: LASHAWN WALSH : [address]: Holger Greer MD Acct: [id number] Unit: [id number] AGE: 57 Location: ED Re08/23/17 SEX: F Status: REG ER SPEC: [id number] MAIA: 08/23/17-[address]: Holger Greer MD REQ: [id number] RECD: 08/23/17 STATUS: COMP OTHR DR: Johanne Hernandez MD _ SOURCE: [facility]: ORDERED: Flu A B Request Procedure Result Reported Site Rapid Influenza A B Request Final 08/23/171548 ML Specimen received for Influenza A/B Molecular testing * ML - MAIN LAB ([facility]) . END OF REPORT * ML=Testing performed at Main Lab DEPARTMENT OF PATHOLOGY, [address] [place] [address] Baltazar Gutierrez M.D. Director [facility] # [id number] 3 FASTING 4 Therapeutic target for the treatment of diabetes Mellitus patients is <7% HBA1C, and in selective patients <6.0%.Please refer to [place] [employer] Diabetic care guidelines for further information. 5 Desirable <150 Borderline high 150-199 High 200-499 Very High >500 6 Desirable <200 Borderline high 200-239 High >239 7 Low <40 Desirable: 40-60 High: >60 8 Desirable: <100 mg/dL Near Optimal: 100-129 mg/dL Borderline High: 130-159 mg/dL High: 160-189 mg/dL Very High: >189 mg/dL 9 Unable to calculate due to low microalbumin 10 Desirable <150 Borderline high 150-199 High 200-499 Very High >500 11 Desirable <200 Borderline high 200-239 High >239 12 Low <40 Desirable: 40-60 High: >60 13 Desirable: <100 mg/dL Near Optimal: 100-129 mg/dL Borderline High: 130-159 mg/dL High: 160-189 mg/dL Very High: >189 mg/dL 14 Therapeutic target for the treatment of diabetes Mellitus patients is <7% HBA1C, and in selective patients <6.0%.Please refer to [place] [employer] Diabetic care guidelines for further information. 15 Please note: The following may produce a false positive D Dimer test: - Rheumatoid factor greater than 60 IU/ml - Plasma hemoglobin greater than 0.05 gm/dl - Bilirubin greater than 50 mg/dl - Lipids greater than 1000 mg/dl - FDP greater than 20 ug/ml 16 [facility] Severe Sepsis and Septic Shock Management Bundle Measure requires all lactic acids initially measuring >2.0 mmol/L be repeated. 17 Reference Range and Interpretation: TnI (ng/mL) Interpretation Less Than 0.03 ng/mL Not supportive of diagnosis of [place] 0.03 - 0.50 ng/mL Indeterminate: suggest serial studies if clinically indicated. Greater than 0.5 ng/mL Consistent with diagnosis of [place] 18 Because ethnic data is not always readily available, this report includes an eGFR for both -Americans and non- Americans. The National Kidney Disease Education Program (NKDEP) does not endorse the use of the MDRD equation for patients that are not between the ages of 18 and 70, are , have extremes of body size, muscle mass, or nutritional status, or are non- or non-. According to the National Kidney Foundation, irrespective of diagnosis, the stage of the disease is based on the level of kidney function: Stage Description GFR(mL/min/1.73 m(2)) 1 Kidney damage with normal or decreased GFR 90 2 Kidney damage with mild decrease in GFR 60-89 3 Moderate decrease in GFR 30-59 4 Severe decrease in GFR 15-29 5 Kidney failure <15 (or dialysis) 19 Acute inflammation: >10.00 20 [id number] 21 The high-risk HPV types detected by the assay include: 16, 18, 31, 33, 35, 39, 45, 51, 52, 56, 58, 59, 66, and 68. 22 SEE RESULT BELOW Name: LASHAWN WALSH : [address]: Tristin Sandhu MD Acct: [id number] Unit: [id number] AGE: 55 Location: [facility] Re02/15/16 SEX: F Status: REG REF SPEC: [id number] MAIA: 02/15/16-[address] [facility] [address]: Tristin Sandhu MD REQ: [id number] RECD: 02/15/16 STATUS: FERNANDA JHA DR: Toni Hernandez MD _ ORDERED: IMAGE ANALYSIS, HPV/Thin Prep, HPV 16/18 GENE COMMENTS: [id number] FINAL DIAGNOSIS Negative for Intraepithelial lesion or Malignancy A. Vaginal Specimen Adequacy: Satisfactory of evaluation Patient Information: HPV: High risk HPV RNA testing regardless of pap results. HPV 16/18 Genotype Reflex Actual Specimen Date: 02/15/16 LMP If Unknown: 2013 ?: N Post Menopausal?: Y Hysterectomy?: Y Previous Abnormal Pap Smears?:N Other Pertinent History: 2013 Hysterectomy for complex atypical hyperplasia. Vaginal cuff post radiation. Date Time Test Result Flag (u) Normal Range 02/15/16 0930 HPV RNA RFLX GE Negative Negative The high-risk HPV types detected by the assay include: 16, 18, 31, 33, 35, 39, 45, 51, 52, 56, 58, 59, 66, and 68. Signed (signature on file) DAVID Marquez (ASC) 02/18 0936 This Pap test was evaluated with the assistance of the [employer] Test Imaging System. Due to cytologic findings at the oracle security consultant microscope, comprehensive manual rescreening by a Rotary Rock Drilling Machine Operator may be required. The Pap Smear is a screening test designed to aid in the detection of premalignant and malignant conditions of the uterine cervix. It is not a diagnostic procedure and should not be used as the sole means of detecting cervical cancer. Both false- positive and false- negative reports do occur. Depending on your risk status, a Pap smear should be obtained and evaluated every 1-3 years. END OF REPORT * ML=Testing performed at Main Lab DEPARTMENT OF PATHOLOGY, [address] [place] [id number] RUN DATE: 02/19/16 [facility] LAB LIVE PAGE 1 Patient: LASHAWN WALSH [id number] (Continued) Baltazar Gutierrez M.D. Director [facility] # [id number] 23 Because ethnic data is not always readily available, this report includes an eGFR for both -Americans and non- Americans. The National Kidney Disease Education Program (NKDEP) does not endorse the use of the MDRD equation for patients that are not between the ages of 18 and 70, are , have extremes of body size, muscle mass, or nutritional status, or are non- or non-. According to the National Kidney Foundation, irrespective of diagnosis, the stage of the disease is based on the level of kidney function: Stage Description GFR(mL/min/1.73 m(2)) 1 Kidney damage with normal or decreased GFR 90 2 Kidney damage with mild decrease in GFR 60-89 3 Moderate decrease in GFR 30-59 4 Severe decrease in GFR 15-29 5 Kidney failure <15 (or dialysis) 24 Please note: The following may produce a false positive D Dimer test: - Rheumatoid factor greater than 60 IU/ml - Plasma hemoglobin greater than 0.05 gm/dl - Bilirubin greater than 50 mg/dl - Lipids greater than 1000 mg/dl - FDP greater than 20 ug/ml 25 [facility] Severe Sepsis and Septic Shock Management Bundle Measure requires all lactic acids initially measuring >2.0mmol/L be repeated. 26 Because ethnic data is not always readily available, this report includes an eGFR for both -Americans and non- Americans. The National Kidney Disease Education Program (NKDEP) does not endorse the use of the MDRD equation for patients that are not between the ages of 18 and 70, are , have extremes of body size, muscle mass, or nutritional status, or are non- or non-. According to the National Kidney Foundation, irrespective of diagnosis, the stage of the disease is based on the level of kidney function: Stage Description GFR(mL/min/1.73 m(2)) 1 Kidney damage with normal or decreased GFR 90 2 Kidney damage with mild decrease in GFR 60-89 3 Moderate decrease in GFR 30-59 4 Severe decrease in GFR 15-29 5 Kidney failure <15 (or dialysis) 27 Reference Range and Interpretation: TnI (ng/mL) Interpretation Less Than 0.03 ng/mL Not supportive of diagnosis of [place] 0.03 - 0.50 ng/mL Indeterminate: suggest serial studies if clinically indicated. Greater than 0.5 ng/mL Consistent with diagnosis of [place] 28 Effective immediately, due to a laboratory mean normal Protime change, the reference range for the INR has changed. 29 Because ethnic data is not always readily available, this report includes an eGFR for both -Americans and non- Americans. The National Kidney Disease Education Program (NKDEP) does not endorse the use of the MDRD equation for patients that are not between the ages of 18 and 70, are , have extremes of body size, muscle mass, or nutritional status, or are non- or non-. According to the National Kidney Foundation, irrespective of diagnosis, the stage of the disease is based on the level of kidney function: Stage Description GFR(mL/min/1.73 m(2)) 1 Kidney damage with normal or decreased GFR 90 2 Kidney damage with mild decrease in GFR 60-89 3 Moderate decrease in GFR 30-59 4 Severe decrease in GFR 15-29 5 Kidney failure <15 (or dialysis) 30 FASTING 12 HOUR 31 FASTING 12 HOUR 32 FASTING 12 HOUR 33 FASTING 12 HOUR 34 Desirable <150 Borderline high 150-199 High 200-499 Very High >500 35 Desirable <200 Borderline high 200-239 High >239 36 Low <40 Desirable: 40-60 High: >60 37 Desirable: <100 mg/dL Near Optimal: 100-129 mg/dL Borderline High: 130-159 mg/dL High: 160-189 mg/dL Very High: >189 mg/dL 38 Because ethnic data is not always readily available, this report includes an eGFR for both -Americans and non- Americans. The National Kidney Disease Education Program (NKDEP) does not endorse the use of the MDRD equation for patients that are not between the ages of 18 and 70, are , have extremes of body size, muscle mass, or nutritional status, or are non- or non-. According to the National Kidney Foundation, irrespective of diagnosis, the stage of the disease is based on the level of kidney function: Stage Description GFR(mL/min/1.73 m(2)) 1 Kidney damage with normal or decreased GFR 90 2 Kidney damage with mild decrease in GFR 60-89 3 Moderate decrease in GFR 30-59 4 Severe decrease in GFR 15-29 5 Kidney failure <15 (or dialysis) 39 Acute inflammation: >10.00 40 RUN DATE: 11/13/14 [facility] LAB LIVE PAGE 1 RUN TIME: [address] [place] [address] Specimen Inquiry Name: LASHAWN WALSH : [address]: Holger Schroeder MD Acct: [id number] Unit: [id number] AGE: 54 Location: ED Re11/08/14 SEX: F Status: DEP ER SPEC: [id number] MAIA: 11/08/[address] [facility] [address]: Elizabeth POND REQ: [id number] RECD: 11/08/14 STATUS: JOSEY JHA DR: Johanne Schroeder MD _ SOURCE: BLOOD,VENO SPDES: ORDERED: Blood Cult Procedure Result Verified Site Aerobic Culture Bottle Final 11/13/14830 ML No Growth Day 5 Anaerobic Culture Bottle Final 11/13/14830 ML No Growth Day 5 END OF REPORT * ML=Testing performed at Main Lab DEPARTMENT OF PATHOLOGY, [address] [place] [address] Baltazar Gutierrez M.D. Director [facility] # [id number] 41 Because ethnic data is not always readily available, this report includes an eGFR for both -Americans and non- Americans. The National Kidney Disease Education Program (NKDEP) does not endorse the use of the MDRD equation for patients that are not between the ages of 18 and 70, are , have extremes of body size, muscle mass, or nutritional status, or are non- or non-. According to the National Kidney Foundation, irrespective of diagnosis, the stage of the disease is based on the level of kidney function: Stage Description GFR(mL/min/1.73 m(2)) 1 Kidney damage with normal or decreased GFR 90 2 Kidney damage with mild decrease in GFR 60-89 3 Moderate decrease in GFR 30-59 4 Severe decrease in GFR 15-29 5 Kidney failure <15 (or dialysis) 42 RUN DATE: 11/13/14 [facility] LAB LIVE PAGE 1 RUN TIME: [address] [place] [address] Specimen Inquiry Name: LASHAWN WALSH : [address]: Holger Schroeder MD Acct: [id number] Unit: [id number] AGE: 54 Location: ED Re11/08/14 SEX: F Status: DEP ER SPEC: [id number] MAIA: 11/08/[address] [facility] [address]: Elizabeth POND REQ: [id number] RECD: 11/08/14 STATUS: JOSEY JAH DR: Johanne Schroeder MD _ SOURCE: BLOOD,VENO SPDES: ORDERED: Blood Cult Procedure Result Verified Site Aerobic Culture Bottle Final 11/13/14- 824 ML No Growth Day 5 Anaerobic Culture Bottle Final 11/13/14- 824 ML No Growth Day 5 END OF REPORT * ML=Testing performed at Main Lab DEPARTMENT OF PATHOLOGY, [facility] [employer] [place], [place] [address] Baltazar Gutierrez M.D. Director [place] # [id number] RUN DATE: 11/08/14 [facility] LAB LIVE PAGE 1 RUN TIME: 828 [facility] [employer] [place], [place] [address] Specimen Inquiry Name: LASHAWN WALSH : [address]: Holger Schroeder MD Acct: [id number] Unit: [id number] AGE: 54 Location: ED Re11/08/14 SEX: F Status: REG ER SPEC: [id number] MAIA: 11/08/14-[address] [facility] [address]: Elizabeth POND REQ: [id number] RECD: 11/08/14 STATUS: JOSEY JHA DR: Johanne Schroeder MD _ SOURCE: PETER SPDES: ORDERED: Rapid Flu A B Procedure Result Verified Site Rapid Influenza A B Antigen Final 11/08/14- 0829 ML Organism 1 Negative Influenza A B Antigen testing by enzyme immunoassay. Cell culture testing can be performed to confirm negative test results and to assist in detecting other viruses that can produce similar clinical symptoms. Please notify Microbiology Lab if further testing is desired. END OF REPORT * ML=Testing performed at Main Lab DEPARTMENT OF PATHOLOGY, [address] [place] [address] Baltazar Gutierrez M.D. Director [facility] # [id number] 44 Because ethnic data is not always readily available, this report includes an eGFR for both -Americans and non- Americans. The National Kidney Disease Education Program (NKDEP) does not endorse the use of the MDRD equation for patients that are not between the ages of 18 and 70, are , have extremes of body size, muscle mass, or nutritional status, or are non- or non-. According to the National Kidney Foundation, irrespective of diagnosis, the stage of the disease is based on the level of kidney function: Stage Description GFR(mL/min/1.73 m(2)) 1 Kidney damage with normal or decreased GFR 90 2 Kidney damage with mild decrease in GFR 60-89 3 Moderate decrease in GFR 30-59 4 Severe decrease in GFR 15-29 5 Kidney failure <15 (or dialysis) 45 Because ethnic data is not always readily available, this report includes an eGFR for both -Americans and non- Americans. The National Kidney Disease Education Program (NKDEP) does not endorse the use of the MDRD equation for patients that are not between the ages of 18 and 70, are , have extremes of body size, muscle mass, or nutritional status, or are non- or non-. According to the National Kidney Foundation, irrespective of diagnosis, the stage of the disease is based on the level of kidney function: Stage Description GFR(mL/min/1.73 m(2)) 1 Kidney damage with normal or decreased GFR 90 2 Kidney damage with mild decrease in GFR 60-89 3 Moderate decrease in GFR 30-59 4 Severe decrease in GFR 15-29 5 Kidney failure <15 (or dialysis) 46 Verbal to [id number] by [id number] at 1540 on 07/14/14.~Results read back accurately. 47 Reference ranges based on room air. 48 Desirable <150 Borderline high 150-199 High 200-499 Very High >500 49 Desirable <200 Borderline high 200-239 High >239 50 Low <40 Desirable: 40-60 High: >60 51 Desirable <100 Near Optimal 100-129 Borderline high 130-159 High 160-189 Very High >189 52 This assay does not differentiate between reactivity due to a vaccine-induced immune response or an immune response induced by infection with HBV. 53 FASTING 54 Desirable <150 Borderline high 150-199 High 200-499 Very High >500 55 Desirable <200 Borderline high 200-239 High >239 56 Low <40 Desirable: 40-60 High: >60 57 Desirable <100 Near Optimal 100-129 Borderline high 130-159 High 160-189 Very High >189 58 FASTING 59 RUN DATE: 12/02/13 [facility] LAB LIVE PAGE 1 RUN TIME: [address], [place] [address] Specimen Inquiry Name: LASHAWN WALSH : [address]: Don Sandoval MD Acct: [id number] Unit: [id number] AGE: 53 Location: ED Re11/30/13 SEX: F Status: DEP ER SPEC: [id number] MAIA: 11/30/[address] [facility] [address]: Don Sandoval MD REQ: [id number] RECD: 11/30/13 STATUS: JOSEY JHA DR: Johanne Hernandez MD _ SOURCE: URINE SPDESC: ORDERED: Urine Culture Procedure Result Verified Site Urine Culture Final 12/02/13- 1011 ML Mixed magalie; possible contamination. Suggest resubmission. END OF REPORT * ML=Testing performed at Main Lab DEPARTMENT OF PATHOLOGY, [address] [place] [address] Baltazar Gutierrez M.D. Director [facility] Permit #[id number] RUN DATE: 12/05/13 [facility] LAB LIVE PAGE 1 RUN TIME: [address] [place] [address] Specimen Inquiry Name: LASHAWN WALSH : [address]: Don Sandoval MD Acct: [id number] Unit: [id number] AGE: 53 Location: ED Re11/30/13 SEX: F Status: DEP ER SPEC: [id number] MAIA: 11/30/13-[address] [facility] [address]: Don Sandoval MD REQ: [id number] RECD: 11/30/13 STATUS: JOSEY JHA DR: Johanne Hernandez MD _ SOURCE: BLOOD,VENO SPDESC: ORDERED: Blood Cult Procedure Result Verified Site Aerobic Culture Bottle Final 12/05/13- 0850 ML No Growth Day 5 Anaerobic Culture Bottle Final 12/05/13- 0850 ML No Growth Day 5 END OF REPORT * ML=Testing performed at Main Lab DEPARTMENT OF PATHOLOGY, [facility] [employer] [place], [place] [address] Baltazar Gutierrez M.D. Director [facility] Permit #[id number] RUN DATE: 12/05/13 [facility] LAB LIVE PAGE 1 RUN TIME: 0850 [facility] [employer] [place], [place] [address] Specimen Inquiry Name: LASHAWN WALSH : [address]: Don Sandoval MD Acct: [id number] Unit: [id number] AGE: 53 Location: ED Re11/30/13 SEX: F Status: DEP ER SPEC: [id number] MAIA: 11/30/[address] [facility] [address]: Don Sandoval MD REQ: [id number] RECD: 11/30/13 STATUS: COMP SILASHR DR: Johanne Hernandez MD _ SOURCE: BLOOD,VENO SPDES: ORDERED: Blood Cult Procedure Result Verified Site Aerobic Culture Bottle Final 12/05/13- 0850 ML No Growth Day 5 Anaerobic Culture Bottle Final 12/05/13- 0850 ML No Growth Day 5 END OF REPORT * ML=Testing performed at Main Lab DEPARTMENT OF PATHOLOGY, [address] [place] [address] Baltazar Gutierrez M.D. Director [facility] Permit #[id number] RUN DATE: 11/30/13 [facility] LAB LIVE PAGE 1 RUN TIME: [address] [place] [address] Specimen Inquiry Name: JILLIANLASHAWN : [address]: Don Sandoval MD Acct: [id number] Unit: [id number] AGE: 53 Location: ED Re11/30/13 SEX: F Status: REG ER SPEC: [id number] MAIA: 11/30/[address] [facility] [address]: Alexandre Aguilar MD REQ: [id number] RECD: 11/30/13 STATUS: JOSEY JHA DR: [facility] Johanne Hernandez MD _ SOURCE: [facility]: ORDERED: Rapid Flu A B Procedure Result Verified Site Rapid Influenza A B Antigen Final 11/30/13- 0750 ML Organism 1 Negative Influenza A B Antigen testing by enzyme immunoassay. Cell culture testing can be performed to confirm negative test results and to assist in detecting other viruses that can produce similar clinical symptoms. Please notify Microbiology Lab if further testing is desired. END OF REPORT * ML=Testing performed at Main Lab DEPARTMENT OF PATHOLOGY, [address] [place] [address] Baltazar Gutierrez M.D. Director [facility] Permit #[id number] 63 Because ethnic data is not always readily available, this report includes an eGFR for both -Americans and non- Americans. The National Kidney Disease Education Program (NKDEP) does not endorse the use of the MDRD equation for patients that are not between the ages of 18 and 70, are , have extremes of body size, muscle mass, or nutritional status, or are non- or non-. According to the National Kidney Foundation, irrespective of diagnosis, the stage of the disease is based on the level of kidney function: Stage Description GFR(mL/min/1.73 m(2)) 1 Kidney damage with normal or decreased GFR 90 2 Kidney damage with mild decrease in GFR 60-89 3 Moderate decrease in GFR 30-59 4 Severe decrease in GFR 15-29 5 Kidney failure <15 (or dialysis) 64 FASTING 65 Microalbuminuria in a random sample is defined as: Microalbumin/Creatinine ratio of 30-299 ug/mg. 66 HDL Interpretation: Undesirable: High Risk: Less than 40 mg/dL Desirable: Low Risk: Greater than 60 mg/dL 67 Unable to calculate LDL as triglyceride is > 400 68 Because ethnic data is not always readily available, this report includes an eGFR for both -Americans and non- Americans. The National Kidney Disease Education Program (NKDEP) does not endorse the use of the MDRD equation for patients that are not between the ages of 18 and 70, are , have extremes of body size, muscle mass, or nutritional status, or are non- or non-. According to the National Kidney Foundation, irrespective of diagnosis, the stage of the disease is based on the level of kidney function: Stage Description GFR(mL/min/1.73 m(2)) 1 Kidney damage with normal or decreased GFR 90 2 Kidney damage with mild decrease in GFR 60-89 3 Moderate decrease in GFR 30-59 4 Severe decrease in GFR 15-29 5 Kidney failure <15 (or dialysis) 69 COMMENTS: N 70 THERAPEUTIC TARGET FOR THE TREATMENT OF DIABETES MELLITUS PATIENTS IS <7% HBA1C, AND IN SELECTIVE PATIENTS <6.0%. PLEASE REFER TO [employer] DIABETIC CARE GUIDELINES FOR FURTHER INFORMATION. Procedures Date CPT Code Description Status Comment 02/25/2017 71807 EKG Tracing & Interpretation Completed 10/16/2015 13565 EKG Tracing & Interpretation Completed 10/11/2015 50975 Holter Monitoring 24 HR New Completed 10/09/2015 26183 Holter Monitoring 24 HR New Completed 09/27/2015 Diabetic Retinal Eye Exam Completed 07/14/2014 72467 Spirometry Incl Graphic Record, Timed Completed Expiratory Flow Rate 07/11/2014 80354 EKG Tracing & Interpretation Completed 06/24/2014 Mammogram Completed 05/24/2014 Diabetic Retinal Eye Exam Completed 08/03/2008 Colonoscopy Completed 09/04/49 Colonoscopy Completed per pt ( nl) Encounters Type Date Location Provider CPT E/M Dx Office Visit 04/02/2018 Pul[place] [address] J44.1 9:15a [facility] G47.33 E66.01 K21.9 Office Visit 09/01/2017 8:10a [facility] Internal Medicine Johanne Hernandez M.D. 08003 E11.9 - [facility] E11.9 J44.9 J44.9 D18.03 R93.8 Z91.19 D18.03 Z91.19 Office Visit [facility]2017 [facility] [address] J44.1 Assoc,pc [facility] Hospitalists I10 E78.5 G47.33 Office Visit 08/24/2017 11:47a [facility] Assoc,pc Rosalie Sharma, N.P. 010[address] J44.1 Hospitalists G47.33 I10 E78.5 Office Visit 08/23/2017 11:46a [facility] Assoc,pc Patrick Ryan, [address] J44.1 Hospitalists N.P. G47.33 I10 E78.5 Office Visit 04/01/2017 10:10a [facility] Internal Medicine Johanne Hernandez M.D. 74525 E11.9 - [place] D18.03 E78.2 E03.8 Z12.31 F32.89 Office Visit 02/25/2017 10:20a [facility] [place] [address] I47.1 [facility] FACC Office Visit 07/24/2016 2:15p [facility] [place], [address] E66.01 [facility] FACS R19.7 Office Visit 07/23/2016 10:10a [facility] Internal Medicine Johanne Hernandez M.D. 96817 K52.9 - [place] E78.4 E11.9 Z23 F43.20 D18.03 L60.3 Office Visit 03/14/2016 10:00a [facility] [place] [address] J45.909 [facility] G47.33 E66.01 Office Visit 01/11/2016 10:50a [facility] Internal Medicine Johanne Hernandez 40127 L03.114 - Fransico Willingham F43.20 Office Visit 12/19/2015 10:30a [facility] Internal Medicine Johanne Hernandez M.D. 89843 E11.9 - [place] C54.1 E78.2 F43.20 Office Visit 10/16/2015 1:00p [facility] [place] [address] R00.2 [facility] E11.9 G47.33 E03.8 J44.9 E66.8 Office Visit 09/27/2015 11:50a [facility] Internal Medicine Johanne Hernandez M.D. 97792 R00.2 - [place] B34.9 Office Visit 06/21/2015 9:50a [facility] Internal Medicine Johanne Hernandez 00037 250.00 - [place] Willingham 110.1 V03.82 V04.81 453.82 110.8 300.00 Office Visit 05/04/2015 9:00a [facility] Richi Clemens M.D. 99475 493.90 [facility] 327.23 Office Visit 04/11/2015 10:50a [facility] Internal Medicine Johanne Hernandez 24964 787.02 - [place] Willingham 300.00 453.82 Office Visit 03/15/2015 11:50a [facility] Internal Medicine Johanne Hernandez 88393 453.82 - [place] Willingham 729.82 V45.89 285.1 250.00 V58.61 Office Visit 01/30/2015 9:30a [facility] [place] [address] 461.8 461.9 Office Visit 12/26/2014 10:10a [facility] Internal Medicine Johanne Hernandez 48660 250.00 - [place] Willingham 272.1 691.8 244.8 288.60 Office Visit 09/16/2014 10:00a [facility] Richi Clemens M.D. 23161 493.00 [facility] 327.23 Office Visit 08/10/2014 1:50p [facility] Internal Medicine Johanne Hernandez 17855 682.8 [facility] Willingham Office Visit 08/07/2014 9:39a [facility], Sav Mitchell, [address] 486 Hospitalists M.Soheila 496 038.9 278.00 Office Visit 08/06/2014 9:38a [facility], Sav Mitchell [address]163 486 Hospitalists MIlia 496 038.9 278.00 Office Visit 08/05/2014 9:37a [facility], Patrick Davis, [address] 486 Hospitalists N.P. 496 038.9 278.00 Office Visit 07/14/2014 1:30p [facility] Richi Clemens M.D. 99103 327.23 [facility] 493.00 Office Visit 07/11/2014 12:10p [facility] Internal Medicine Johanne Hernandez 44592 V72.84 - Fransico Willingham 627.0 272.1 250.00 327.23 244.8 696.8 V04.81 278.01 493.90 Office Visit 06/16/2014 10:50a [facility] Internal Medicine Johanne Hernandez 41919 250.00 - [place]ansico Willingham 493.90 696.8 703.8 627.0 272.1 V03.82 Office Visit 04/07/2014 1:10p [facility] Internal Medicine Johanne Hernandez M.D. 11044 847.0 - [place]ans[place] 847.0 Office Visit 12/20/2013 2:30p [facility] Internal Medicine Johanne Hernandez 12931 250.00 - [place] Willingham 272.1 327.23 244.8 493.90 Office Visit 09/09/2013 11:10a [facility] Internal Medicine Johanne Hernandez 49514 493.90 - [place]ansico Willingham 477.9 244.8 250.02 Office Visit 11/04/2012 9:15a [facility] Raisa Limon 08210 841.0 Of Rajesh Willingham Office Visit 09/23/2012 8:15a [facility] Raisa Limon 38525 719.44 Of Rajesh Willingham Plan of Care Future Appointment(s):05/26/2018 10:00 am - Navneet Carpio MD at [facility]04/27/2018 10:10 am - Johanne Hernandez M.D. at [facility] Internal Medicine - [id number]/28/2018 10:30 am - Andreina Pelayo MD at [facility]04/10/2018 - Navneet Carpio, MDM75.42 Impingement syndrome of left shoulderNew Therapy:Physical TherapyFollow up:Follow up: 6 bdwnxC35.512 Pain in left shoulderNew Xrays:Shoulder Left 2+ VWSNew Therapy: Physical Therapy
--- OUTSIDE RECORDS SUMMARY | 2018-04-27 01:33 | XMS REPORT ---
:1960 External Reference #:[id number] Author Organization [facility] Address [address] [place] [address] [place] [address] Phone [phone] Care Team Providers Name Role Phone Johanne Hernandez MD Primary Care Physician Unavailable Payers Type Date Identification Numbers Payment Provider Subscriber Commercial Effective: Policy Number: [id number] BS Jessica Walsh 2011 PayID: [id number] [address] [address] PATRICE Pleitez [address] Medigap Part B Effective: Policy Number: Blue Shield Ppo Lashawn Benz Jillian 2007 [id number] Expires: 2011 PayID: [id number] [address] [address] PATRICE Gomez [address] Medigap Part B Effective: 2011 Policy Number: BS Jessica Walsh [id number] Expires: 2011 PayID: [id number] [address] [address] PATRICE Pleitez [address] Workers Compensation Effective: Group Number: Zenobiaevonne Benz Jillian 2014 EXT 238 Center Onset: 2014 [address] [place] [address] Problems Date Description Provider Status Onset: 12/20/2013 [...] Endometrial carcinoma Johanne Hernandez M.D. Active Note: [id number] s/p hysterectomy & adjuvant XRT ( intravaginal [...] Alone Has 3 children Occupation Currently Working [employer] ( personal needs ) Work Status Currently [...] needed M.D. 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 x's 5 days Mometasone [...] Code Status Date Vaccine Reaction Lot # [id number] Given 08/18/2017 Influenza Virus Vaccine, Quadrivalent, Split, Preservative Free 41497 Given 07/23/2016 Influenza Virus Vaccine, Quadrivalent, [id number] Split Virus, Im Use 05883 Given 06/21/2015 Influenza Virus Vaccine, Quadrivalent, [id number] Split, Preservative Free 92639 Given 06/21/2015 Pneumococcal Conjugate Vaccine 13 [id number] Valent For Intramuscular Use 15444 Given 07/11/2014 Influenza Virus Vaccine, Quadrivalent, no reaction [id number] Split, Preservative Free 62328 Given 06/16/2014 Pneumonia Vaccine [id number] Vital Signs Date Vital Result Comment 04/09/2018 Height 61 inches 5'1" Weight 332.00 [...] Free T4 (Free Thyroxine) 0.99 ng/dL 0.61-1.12 Lipid Profile (Trig/Chol/HDL) 03/27/2017 Triglycerides 254 mg/dL 3, 4 Cholesterol 158 mg/dL 3, 5 HDL Cholesterol 46.6 mg/dL 3, 6 LDL Cholesterol 61 mg/dL 3, 7 Laboratory test 03/27/2017 Hemoglobin A1c (Glyco 6.3 % High Less than 6.0 3, 8 finding HGB) Hepatitis C Antibody Nonreactive Nonreactive 3 Liver Function Panel 07/23/2016 Total Protein 6.5 [...] Color Straw Urine Appearance Clear Urine Specific [place] 1.008 Low 1.010-1.030 Urine pH 5.0 5-9 [...] Genotype Cytology SEE RESULT BELOW 20, 22 CBC Auto Diff 01/06/2016 White Blood Count [...] Quantitative < 200 ng/mL Less Than 230 23 finding Comp Metabolic Panel 01/06/2016 Sodium 135 mmol/L [...] Egfr Non- 75.0 >60 Egfr 96.5 >60 24 Laboratory test finding 12/19/2015 Hemoglobin A1c 7.2 High 5-7 Laboratory test finding 09/22/2015 Magnesium 2.1 mg/dL 1.9-2.7 Troponin-I (TnI) 0.00 ng/mL <0.03 25 TSH (Thyroid Stim Horm) 1.41 ?IU/mL 0.34-5.60 Comp Metabolic Panel 09/22/2015 Sodium 136 mmol/L [...] 85.2 >60 26 Laboratory test finding 09/22/2015 Lactic Acid 1.6 mmol/L 0.5-2.0 27 Inr/Protime 09/22/2015 Inr 0.97 0.89-1.11 CBC Auto Diff 09/22/2015 White Blood Count [...] Red Blood Cells % 0.1 Laboratory test finding 08/08/2015 Inr/Protime 1.97 High [...] 1.3 Inr/Protime 03/30/2015 Inr 1.61 High 0.78-1.07 Protime W/ Inr 03/15/2015 Prothrombin Time 27.8 Inr 2.3 Laboratory test finding 03/15/2015 Magnesium 2.1 mg/dL 1.9-2.7 Basic Metabolic Panel 03/15/2015 Sodium 134 mmol/L 133-145 Potassium 4.7 mmol/L 3.5-5.0 Chloride 99 mmol/L Low 101-111 Co2 Carbon Dioxide 29 mmol/L 22-32 Anion Gap 6 mmol/L 2-11 Glucose 160 mg/dL High 70-100 Blood Urea Nitrogen 21 mg/dL 6-24 Creatinine 0.62 mg/dL 0.51-0.95 BUN/Creatinine Ratio 33.9 High 8-20 Calcium 9.8 mg/dL 8.6-10.3 Egfr Non- 99.2 >60 Egfr 127.6 >60 29 CBC Auto Diff 03/15/2015 White Blood Count [...] 0-2 Nucleated Red Blood Cells % 0.1 Urine Microalbumin Random 01/13/2015 Ur Microalbumin (mg/L) 9.0 mg/L 30 Urine Creatinine 74.15 mg/dL 30 Urine Microalbumin/Creatinine 12.1 Less Than 31 30 CBC Auto Diff 01/13/2015 White Blood Count [...] Nucleated Red Blood Cells % 0 30 Lipid Profile (Trig/Chol/HDL) 01/13/2015 Triglycerides 156 mg/dL 30, 31 Cholesterol 218 mg/dL 30, 32 HDL Cholesterol 42.7 mg/dL 30, 33 LDL Cholesterol 144 mg/dL 30, 34 Laboratory test finding 01/13/2015 Free T4 0.75 ng/mL 0.61-1.12 30, 35 Free T3 2.70 pg/mL 2.5-3.9 30, 36 TSH (Thyroid Stimulating Horm) 1.66 IU/mL 0.34-5.60 30, 37 Laboratory test finding 12/26/2014 TSH (Thyroid Stim Horm) <pending> Free T4 (Free Thyroxine) <pending> T3 Free <pending> Laboratory test finding 12/26/2014 Hemoglobin A1c 6.7 5-7 CBC Auto Diff 11/16/2014 White Blood Count [...] Non- 92.6 >60 Egfr 119.1 >60 44 Laboratory test finding 08/05/2014 Activated Partial 42.9 seconds High 24.0-36.1 Thrombo Time Lactic Acid 1.9 mmol/L 0.5-2.2 Inr/Protime 08/05/2014 Inr 1.15 High 0.85-1.06 Comp Metabolic Panel 08/05/2014 Sodium 133 mmol/L [...] Non- 65.6 >60 Egfr 84.4 >60 45 CBC Auto Diff 08/05/2014 White Blood Count [...] 0-2 Nucleated Red Blood Cells % 0 Arterial Blood Gas 07/14/2014 PH Arterial 7.37 [...] test 12/20/2013 Hemoglobin A1c 6.9 5-7 finding Laboratory test 11/30/2013 Activated Partial 28.5 seconds 24.0-36.1 finding Thrombo Time Inr/Protime 11/30/2013 Inr 0.91 0.85-1.06 Comp Metabolic Panel 11/30/2013 Sodium 136 mmol/L [...] Egfr Non- 82.8 >60 Egfr 106.4 >60 59 CBC Auto Diff 11/30/2013 White Blood Count [...] 0-2 Nucleated Red Blood Cells % 0.1 Rapid Influenza A B 11/30/2013 Rapid Influenza A B (SEE NOTE) 60 Antigen Antigen Laboratory test finding 11/30/2013 Lactic Acid 1.2 mmol/L 0.5-2.2 Blood Culture (SEE NOTE) 61 Blood Culture 11/30/2013 Blood Culture (SEE NOTE) 62 Urine Culture And Sensitivities 11/30/2013 Urine Culture (SEE NOTE) 63 Urinalysis 11/30/2013 Urine Color Yellow Urine Appearance Clear Urine Specific [place] 1.005 Low 1.010-1.030 Urine Esterase Negative Negative Urine Nitrate Negative Negative Urine Urobilinogen Negative E.U./dL Negative Urine Protein Negative mg/dL Negative Urine pH 5.5 5-9 Urine Blood Negative Negative Urine Ketones Negative mg/dL Negative Urine Bilirubin Negative Negative Urine Glucose Negative mg/dL Negative Lipid Profile (Trig/Chol/HDL) 09/17/2013 Triglycerides 751 mg/dL High 40- 200 Cholesterol 271 mg/dL High Less than 200 HDL Cholesterol 50 mg/dL 40-60 64 Cholesterol/HDL Ratio 5.4 Average High 1-4.44 LDL Cholesterol (SEE NOTE) Less Than 100 65 Laboratory test finding 09/17/2013 TSH (Thyroid 3.58 miu/mL 0.34-5.60 66 Stimulating Horm) Urine Microalbumin 09/17/2013 Ur Microalbumin (mg/L) 23.0 mg/L 67 Random Urine Creatinine 160.2 mg/dL Urine Microalbumin/Creatinine 14.4 Less Than 31 Comp Metabolic Panel 09/17/2013 Sodium 137 mmol/L [...] Less Than 6.0 69 , 70 1 Religious Education Teacher: [id number] 2 SEE RESULT BELOW Name: LASHAWN WALSH : [address]: Holger Greer MD Acct: [id number] Unit: [id number] AGE: 57 Location: ED Re08/23/17 SEX: F Status: REG ER SPEC: [id number] MAIA: 08/23/17-1539 [facility] [address]: Holger Greer MD REQ: [id number] RECD: 08/23/17 STATUS: COMP [facility] DR: Johanne Hernandez MD _ SOURCE: PETER STROUDESC: ORDERED: Flu A B Request Procedure Result Reported Site Rapid Influenza A B Request Final 08/23/17- 1549 ML Specimen received for Influenza A/B Molecular testing * ML - MAIN LAB ([facility]) . END OF REPORT * ML=Testing performed at Main Lab DEPARTMENT OF PATHOLOGY, [address] [place] [address] Baltazar Gutierrez M.D. Director [facility] # [id number] FASTING 4 Desirable <150 Borderline high 150-199 High 200-499 Very High >500 5 Desirable <200 Borderline high 200-239 High >239 6 Low <40 Desirable: 40-60 High: >60 7 Desirable: <100 mg/dL Near Optimal: 100-129 mg/dL Borderline High: 130-159 mg/dL High: 160-189 mg/dL Very High: >189 mg/dL 8 Therapeutic target for the treatment of diabetes Mellitus patients is <7% HBA1C, and in selective patients <6.0%.Please refer to [place] [employer] Diabetic care guidelines for further information. 9 Unable to calculate due to low [...] and in selective patients <6.0%.Please refer to [place] [employer] Diabetic care guidelines for further information. 15 Please note: The following may produce a false positive D Dimer test: - Rheumatoid factor greater than 60 IU/ml - Plasma hemoglobin greater than 0.05 gm/dl - Bilirubin greater than 50 mg/dl - Lipids greater than 1000 mg/dl - FDP greater than 20 ug/ml 16 [place] Severe Sepsis and Septic Shock Management Bundle Measure requires all lactic acids initially measuring >2.0 mmol/L be repeated. 17 Reference Range and Interpretation: TnI (ng/mL) Interpretation Less Than 0.03 ng/mL Not supportive of diagnosis of AR 0.03 - 0.50 ng/mL Indeterminate: suggest serial studies if clinically indicated. Greater than 0.5 ng/mL Consistent with diagnosis of AR 18 Because ethnic data is not always [...] (or dialysis) 19 Acute inflammation: >10.00 20 [id number] 21 The high-risk HPV types detected by the assay include: 16, 18, 31, 33, 35, 39, 45, 51, 52, 56, 58, 59, 66, and 68. 22 SEE RESULT BELOW Name: LASHAWN WALSH Demar : [address]: Tristin Sandhu MD Acct: [id number] Unit: [id number] AGE: 55 Location: [facility] Re02/15/16 SEX: F Status: REG REF SPEC: [id number] MAIA: 02/15/1630 [facility] [address]: Tristin Sandhu MD REQ: [id number] RECD: 02/15/16 STATUS: FERNANDA JHA DR: Toni Hernandez MD _ ORDERED: IMAGE ANALYSIS, HPV/Thin Prep, HPV 16/18 GENE COMMENTS: [id number] FINAL DIAGNOSIS Negative for Intraepithelial lesion or [...] (signature on file) DAVID Marquez (ASC) 02/18 0945 This Pap test was evaluated with the assistance of the [employer] Test Imaging System. Due to cytologic findings at the echometer engineer microscope, comprehensive manual rescreening by a [employer] may be required. The Pap Smear is [...] performed at Main Lab DEPARTMENT OF PATHOLOGY, [address] [place] [address] RUN DATE: 02/19/16 [facility] LAB LIVE PAGE 1 Patient: LASHAWN WALSH [id number] (Continued) Baltazar Gutierrez M.D. Director [facility] # [id number] 23 Please note: The following may produce a false positive D Dimer test: - Rheumatoid factor greater than 60 IU/ml - Plasma hemoglobin greater than 0.05 gm/dl - Bilirubin greater than 50 mg/dl - Lipids greater than 1000 mg/dl - FDP greater than 20 ug/ml 24 Because ethnic data is not always readily [...] 15-29 5 Kidney failure <15 (or dialysis) 25 Reference Range and Interpretation: TnI (ng/mL) Interpretation Less Than 0.03 ng/mL Not supportive of diagnosis of AR 0.03 - 0.50 ng/mL Indeterminate: suggest serial studies if clinically indicated. Greater than 0.5 ng/mL Consistent with diagnosis of AR 26 Because ethnic data is not always [...] 5 Kidney failure <15 (or dialysis) 27 [facility] Severe Sepsis and Septic Shock Management Bundle Measure requires all lactic acids initially measuring >2.0mmol/L be repeated. 28 Effective immediately, due to a laboratory [...] (or dialysis) 30 FASTING 12 HOUR 31 Desirable <150 Borderline high 150-199 High 200-499 Very High >500 32 Desirable <200 Borderline high 200-239 High >239 33 Low <40 Desirable: 40-60 High: >60 34 Desirable: <100 mg/dL Near Optimal: 100-129 mg/dL Borderline High: 130-159 mg/dL High: 160-189 mg/dL Very High: >189 mg/dL 35 FASTING 12 HOUR 36 FASTING 12 HOUR 37 FASTING 12 HOUR 38 Because ethnic data is not always [...] Acute inflammation: >10.00 40 RUN DATE: 11/13/14 [facility] LAB LIVE PAGE 1 RUN TIME: [address] [place] [address] Specimen Inquiry Name: LASHAWN WALSH : [address]: Holger Schroeder MD Acct: [id number] Unit: [id number] AGE: 54 Location: ED Re11/08/14 SEX: F Status: DEP ER SPEC: [id number] MAIA: 11/08/14 [facility] [address]: Elizabeth POND REQ: [id number] RECD: 11/08/14 STATUS: JOSEY JHA DR: Johanne Schroeder MD _ SOURCE: BLOOD,VENO SPDES: ORDERED: Blood Cult Procedure Result Verified Site Aerobic Culture Bottle Final 11/13/14830 ML No Growth Day 5 Anaerobic Culture Bottle Final 11/13/14830 ML No Growth Day 5 END OF REPORT * ML=Testing performed at Main Lab DEPARTMENT OF PATHOLOGY, [address] [place] [address] Baltazar Gutierrez M.D. Director [facility] # [id number] 41 Because ethnic data is not always [...] <15 (or dialysis) 42 RUN DATE: 11/13/14 [facility] LAB LIVE PAGE 1 RUN TIME: [address] [place] [address] Specimen Inquiry Name: LASHAWN WALSH : [address]: Holger Schroeder MD Acct: [id number] Unit: [id number] AGE: 54 Location: ED Re11/08/14 SEX: F Status: DEP ER SPEC: [id number] MAIA: 11/08/14 [facility]EL: Elizabeth POND REQ: [id number] RECD: 11/08/14 STATUS: JOSEY JHA DR: Johanne Schroeder MD _ SOURCE: BLOOD,VENO SPDES: ORDERED: Blood Cult Procedure Result Verified Site Aerobic Culture Bottle Final 11/13/14- 0825 ML No Growth Day 5 Anaerobic Culture Bottle Final 11/13/14- 25 ML No Growth Day 5 END OF REPORT * ML=Testing performed at Main Lab DEPARTMENT OF PATHOLOGY, [facility] [address] [place], [place] [address] Baltazar Gutierrez M.D. Director [place] # [id number] RUN DATE: 11/08/14 [facility] LAB LIVE PAGE 1 RUN TIME: 828 [facility] [employer] [place], [place] [address] Specimen Inquiry Name: LASHAWN WALSH : [address]: Holger Schroeder MD Acct: [id number] Unit: [id number] AGE: 54 Location: ED Re11/08/14 SEX: F Status: REG ER SPEC: [id number] MAIA: 11/08/14-754 [facility] DR: Elizabeth POND REQ: [id number] RECD: 11/08/14 STATUS: JOSEY JHA DR: Johanne Schroeder MD _ [facility] ORDERED: Rapid Flu A B Procedure Result Verified Site Rapid Influenza A B Antigen Final 11/08/14- 08 ML Organism 1 Negative Influenza A B Antigen testing by enzyme immunoassay. Cell culture testing can be performed to confirm negative test results and to assist in detecting other viruses that can produce similar clinical symptoms. Please notify Microbiology Lab if further testing is desired. END OF REPORT * ML=Testing performed at Main Lab DEPARTMENT OF PATHOLOGY, [address] [place] [address] Baltazar Gutierrez M.D. Director [facility] # [id number] 44 Because ethnic data is not always [...] failure <15 (or dialysis) 46 Verbal to [id number] by [id number] at 1540 on 07/14/14.~Results read back accurately. [...] 160-189 Very High >189 58 FASTING 59 Because ethnic data is not always readily [...] 15-29 5 Kidney failure <15 (or dialysis) 60 RUN DATE: 11/30/13 [facility] LAB LIVE PAGE 1 RUN TIME: [address] [place] [address] Specimen Inquiry Name: LASHAWN WALSH : [address]: Don Sandoval MD Acct: [id number] Unit: [id number] AGE: 53 Location: ED Re11/30/13 SEX: F Status: REG ER SPEC: [id number] MAIA: 11/30/[address] [facility] [address]: Alexandre Aguilar MD REQ: [id number] RECD: 11/30/13 STATUS: JOSEY JHA DR: [facility] Johanne Hernandez MD _ SOURCE: PETER SPDESC: ORDERED: Rapid Flu A B Procedure Result [...] performed at Main Lab DEPARTMENT OF PATHOLOGY, [facility] [address] [place], [place] [address] Baltazar Gutierrez M.D. Director [facility] Permit #[id number] 61 RUN DATE: 12/05/13 [facility] LAB LIVE PAGE 1 RUN TIME: [address] [place] [address] Specimen Inquiry Name: LASHAWN WALSH : [address]: Don Sandoval MD Acct: [id number] Unit: [id number] AGE: 53 Location: ED Re11/30/13 SEX: F Status: DEP ER SPEC: [id number] MAIA: 11/30/[address] [facility] [address]: Don Sandoval MD REQ: [id number] RECD: 11/30/13 STATUS: JOSEY JHA DR: Johanne Hernandez MD _ SOURCE: BLOOD,VENO SPDESC: ORDERED: Blood Cult Procedure Result Verified Site Aerobic Culture Bottle Final 12/05/13- 0850 ML No Growth Day 5 Anaerobic Culture Bottle Final 12/05/13- 0850 ML No Growth Day 5 END OF REPORT * ML=Testing performed at Main Lab DEPARTMENT OF PATHOLOGY, [address] [place] [address] Baltazar Gutierrez M.D. Director [facility] Permit #[id number] 62 RUN DATE: 12/05/13 [facility] LAB LIVE PAGE 1 RUN TIME: [address] [place] [address] Specimen Inquiry Name: LASHAWN WALSH : [address]: Don Sandoval MD Acct: [id number] Unit: [id number] AGE: 53 Location: ED Re11/30/13 SEX: F Status: DEP ER SPEC: [id number] MAIA: 11/30/[address] [facility] [address]: Don Sandoval MD REQ: [id number] RECD: 11/30/13 STATUS: JOSEY JHA DR: Johanne Hernandez MD _ SOURCE: BLOOD,VENO SPDESC: ORDERED: Blood Cult Procedure Result Verified Site Aerobic Culture Bottle Final 12/05/13- 0850 ML No Growth Day 5 Anaerobic Culture Bottle Final 12/05/13- 0850 ML No Growth Day 5 END OF REPORT * ML=Testing performed at Main Lab DEPARTMENT OF PATHOLOGY, [facility] [address] [place], [place] [address] Baltazar Gutierrez M.D. Director [facility] Permit #[id number] 63 RUN DATE: 12/02/13 [facility] LAB LIVE PAGE 1 RUN TIME: 101 [facility] [employer] [place], [place] [address] Specimen Inquiry Name: LASHAWN WALSH : [address]: Don Sandoval MD Acct: [id number] Unit: [id number] AGE: 53 Location: ED Re11/30/13 SEX: F Status: DEP ER SPEC: [id number] MAIA: 11/30/[address] [facility] [address]: Don Sandoval MD REQ: [id number] RECD: 11/30/13 STATUS: JOSEY JHA DR: Johanne Hernandez MD _ SOURCE: URINE SPDESC: ORDERED: Urine Culture Procedure Result Verified Site Urine Culture Final 12/02/13- 1011 ML Mixed magalie; possible contamination. Suggest resubmission. END OF REPORT * ML=Testing performed at Main Lab DEPARTMENT OF PATHOLOGY, [address] [place] [address] Baltazar Gutierrez M.D. Director [facility] Permit #[id number] 64 HDL Interpretation: Undesirable: High Risk: Less than 40 mg/dL Desirable: Low Risk: Greater than 60 mg/dL 65 Unable to calculate LDL as triglyceride is > 400 66 FASTING 67 Microalbuminuria in a random sample is defined as: Microalbumin/Creatinine ratio of 30-299 ug/mg. 68 Because ethnic data is not always [...] IN SELECTIVE PATIENTS <6.0%. PLEASE REFER TO [place] [employer] DIABETIC CARE GUIDELINES FOR FURTHER INFORMATION. Procedures Date CPT Code Description Status Comment 02/25/2017 08577 EKG Tracing & Interpretation Completed 10/16/2015 91483 EKG Tracing & Interpretation Completed 10/11/2015 92316 Holter Monitoring 24 HR New Completed 10/09/2015 06119 Holter Monitoring 24 HR New Completed 09/27/2015 Diabetic Retinal Eye Exam Completed 07/14/2014 81887 Spirometry Incl Graphic Record, Timed Completed Expiratory Flow Rate 07/11/2014 01124 EKG Tracing & Interpretation Completed 06/24/2014 Mammogram Completed 05/24/2014 Diabetic Retinal Eye Exam Completed 08/03/2008 Colonoscopy Completed 09/04/49 Colonoscopy Completed per pt ( nl) Encounters Type Date Location Provider CPT E/M Dx Office Visit 04/02/2018 Pulmonology [place] [address] J44.1 9:15a [facility] G47.33 E66.01 K21.9 Office Visit 09/01/2017 8:10a [facility] Internal Medicine Johanne Hernandez M.D. 49881 E11.9 - [place] E11.9 J44.9 J44.9 D18.03 R93.8 Z91.19 D18.03 Z91.19 Office Visit [facility]2017 [facility] [place] [address] J44.1 Assoc,pc [facility] Hospitalists I10 E78.5 G47.33 Office Visit 08/24/2017 11:47a [facility] Assoc,pc Rosalie Sharma, N.P. 16485 J44.1 Hospitalists G47.33 I10 E78.5 Office Visit 08/23/2017 11:46a [facility] Assoc,pc Patrick Ryan, [address] J44.1 Hospitalists N.P. G47.33 I10 E78.5 Office Visit 04/01/2017 10:10a [facility] Internal Medicine Johanne Hernandez M.D. 09064 E11.9 - [place] D18.03 E78.2 E03.8 Z12.31 F32.89 Office Visit 02/25/2017 10:20a [facility] [place] [address] I47.1 [facility] FACC Office Visit 07/24/2016 2:15p [facility] [place], [address] E66.01 [facility] FACS R19.7 Office Visit 07/23/2016 10:10a [facility] Internal Medicine Johanne Hernandez M.D. 83746 K52.9 - [place] E78.4 E11.9 Z23 F43.20 D18.03 L60.3 Office Visit 03/14/2016 10:00a [facility] [place] [address] J45.909 [facility] G47.33 E66.01 Office Visit 01/11/2016 10:50a [facility] Internal Medicine Johanne Hernandez, 94818 L03.114 - Fransico Willingham F43.20 Office Visit 12/19/2015 10:30a [facility] Internal Medicine Johanne Hernandez M.D. 07985 E11.9 - [place] C54.1 E78.2 F43.20 Office Visit 10/16/2015 1:00p [facility] [place] [address] R00.2 [facility] FAC E11.9 G47.33 E03.8 J44.9 E66.8 Office Visit 09/27/2015 11:50a [facility] Internal Medicine Johanne Hernandez M.D. 73725 R00.2 - [place] B34.9 Office Visit 06/21/2015 9:50a [facility] Internal Medicine Johanne Hernandez 10798 250.00 - [place] 110.1 V03.82 V04.81 453.82 110.8 300.00 Office Visit 05/04/2015 9:00a [facility] Richi Clemens M.D. 33470 493.90 [facility] 327.23 Office Visit 04/11/2015 10:50a [facility] Internal Medicine Johanne Hernandez 82962 787.02 - [place] 300.00 453.82 Office Visit 03/15/2015 11:50a [facility] Internal Medicine Johanne Hernandez 61494 453.82 - [place] 729.82 V45.89 285.1 250.00 V58.61 Office Visit 01/30/2015 9:30a [facility] [place] [address] 461.8 461.9 Office Visit 12/26/2014 10:10a [facility] Internal Medicine Johanne Hernandez 62394 250.00 - [place] 272.1 691.8 244.8 288.60 Office Visit 09/16/2014 10:00a [facility] Richi Clemens M.D. 04122 493.00 [facility] 327.23 Office Visit 08/10/2014 1:50p [facility] Internal Medicine Johanne Hernandez 54811 682.8 [place] Office Visit 08/07/2014 9:39a [facility] Ass, Sav Mitchell 78083 486 Hospitalists MIlia 496 038.9 278.00 Office Visit 08/06/2014 9:38a [facility], Sav Mitchell 54507 486 Hospitalists MIlia 496 038.9 278.00 Office Visit 08/05/2014 9:37a [facility], Patrick Davis, [address]30 486 Hospitalists N.PPaula 496 038.9 278.00 Office Visit 07/14/2014 1:30p [facility]ology [facility] Sleep Richi Clemens M.D. 18103 327.23 [facility] 493.00 Office Visit 07/11/2014 12:10p [facility] Internal Medicine Johanne Hernandez 94677 V72.84 - [place]illingham 627.0 272.1 250.00 327.23 244.8 696.8 V04.81 278.01 493.90 Office Visit 06/16/2014 10:50a [facility] Internal Medicine Johanne Hernandez 65252 250.00 - [place] Willingham 493.90 696.8 703.8 627.0 272.1 V03.82 Office Visit 04/07/2014 1:10p [facility] Internal Medicine Johanne Hernandez M.D. 20667 847.0 - [place] 847.0 Office Visit 12/20/2013 2:30p [facility] Internal Medicine Johanne Hernandez 36089 250.00 - [place] Willingham 272.1 327.23 244.8 493.90 Office Visit 09/09/2013 11:10a [facility] Internal Medicine Johanne Hernandez 31199 493.90 - [place] Willingham 477.9 244.8 250.02 Office Visit 11/04/2012 9:15a Orthopedic Services Raisa Limon 21253 841.0 Of Rajesh Willingham Office Visit 09/23/2012 8:15a [facility] Services Raisa Limon 55819 719.44 Of Rajesh Willingham Plan of Care Future Appointment(s):04/27/2018 10:10 am - Johanne Hernandez M.D. at [facility] Internal Medicine [facility]06/02/2018 10:30 am - Andreian Pelayo MD at [facility]04/09/2018 - Johanne Hernandez M.D.E11.9 Type 2 diabetes mellitus without complicationsNew Medication:Januvia 100 mgNew Labs:Urine Microalbumin RandomComments:Need to work on weight loss , which will help your diabetes , blood pressure, joints etcI10 Essential (primary) hypertensionNew Medication:Lisinopril 5 mgComments:discussed youe blood pressure is high so I would suggest adding a BP medication that also helps protect the kidneys 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
--- OUTSIDE RECORDS SUMMARY | 2018-04-27 01:34 | XMS REPORT ---
:1960 External Reference #:[id number] Author Organization [facility] Address [address] [place] [address] [place] [address] Phone [phone] Care Team Providers Name Role Phone Johanne Hernandez MD Primary Care Physician Unavailable Payers Type Date Identification Numbers Payment Provider Subscriber Commercial Effective: Policy Number: [id number] BS Jessica Walsh 2011 PayID: [id number] [address] [address] PATR[place] Pleitez [address] Medigap Part B Effective: Policy Number: Blue Shield Ppo Lashawn Benz Jillian 2007 [id number] Expires: 2011 PayID: [id number] [address] [address] PATRICE Gomez [id number] Medigap Part B Effective: 2011 Policy Number: BS Jessica Walsh [id number] Expires: 2011 PayID: [id number] [address] [address] PATRICE Pleitez [address] Workers Compensation Effective: Group Number: Zenobiaevonne Benz Jillian 2014 EXT 238 Center Onset: 2014 [address] [place] [address] Problems Date Description Provider Status Onset: 12/20/2013 [...] Endometrial carcinoma Johanne Hernandez M.D. Active Note: [id number] s/p hysterectomy & adjuvant XRT ( intravaginal [...] Alone Has 3 children Occupation Currently Working [employer] ( personal needs ) Work Status Currently [...] Form Strength Qnty SIG Indications Ordering Provider Prednisone 04/02 Active Tablets 10mg 30tab 30mg daily J44.1 Andreina /2017 s for 1 week, Pierce, 20mg daily for 1 week, 10 mg daily for 1 week Doxycycline 04/02 Active Capsules 100mg 14cap one tablet J44.1 Andreina Hyclate /2017 s twice daily Pierce, for 7 days. MD Tejeda 09/01 Active Tablets 50mg 90tab 1 by mouth E11.9 Johanne s every day Maulik Hernandez Cholestyramine 08/21 Active Packet 4gm 1unit 4 gms every Johanne s day as David, needed M.D. Atorvastatin 06/21 Active Tablets 20mg 90tab take one E78.2 Johanne Calcium s tablet by David mouth at M.D. bedtime Cardizem CD 10/16 Active Caps ER 120mg 90cap 1 by mouth R00.2 Johanne 24HR s every day Maulik Hernandez Symbicort 05/04 Active Aerosol 160-4.5mc 1unit 1 puffs J45.909 Andreina /2015 g/Act s puffs twice evonne Pelayo MD 04/03 Active Device 1unit check Johanne Blood [...] 850mg 60tab take one s tablet by cassie Hernandez twice M.D. a day Albuterol Active Nebulizer (2.5mg/3M 225ml as needed 4 Andreina Sulfate / L) 0.083% times a day MD Pierce Ventolin HFA Active Aerosol 108(90Bas 1unit 2 puffs by Andreina /0000 e) s mouth four Pierce, mcg/Act times a day as needed Mucinex Active Tablets ER 600mg 60tab 1 tab bid po Unknown 12HR s prn Imodium A-D Active Tablets 2mg Unknown Levothyroxine Active Tablets 175mcg 90tab take one Johanne Sodium s tablet by cassie Hernandez every M.D. day Bipap 00/00 Active Device use at at G47.33 Unknown /0000 bedtime Bipap Mask And 00/00 Active Device bipap G47.33 Unknown Supplies /0000 supplies - headgear, cushion, tubing, filters, water chamber for sleep apnea dx G43.77 Cephalexin 01/05 Hx Tablets 500mg 1 tab every 6 hrs X 7 Hernandez, - days M.D. 01/12 Atorvastatin 12/18 Hx Tablets 20mg 90tab take one E78.2 Johanne s tablet by Hernandez, - mouth at M.D. 01/10 bedtime /2015 Januvia 12/18 Hx Tablets 25mg 30tab take one E11.9 Johanne s tablet by David, - mouth every M.D. 09/01 day /2016 Fluconazole 06/21 Hx Tablets 100mg 10tab 1 tab by 110.8 Johanne s mouth daily David, - x 10 days M.D. 09/27 Warfarin Sodium 04/25 Hx Tablets 10mg 60tab Take one by Johanne s mouth 5 days Hernandez, - a week M.D. 09/27 (takes 5 mg. /2014 2 days a week) or as directed Freestyle Lite 04/03 Hx 100un use as Johanne Test Strip /2014 its directed Hernandez, - three times M.D. 04/03 daily or as needed dx: 250.00 Ferrous Fumarate 03/16 Hx Tablets 324mg 60tab 1 tab daily Johanne /2015 s David, - M.D. 12/18 Nathaniel Contour 03/16 Hx Strips 100un test three Johanne Blood Glucose /2014 its times daily Hernandez, Test Strips - or as needed M.D. 04/03 Nathaniel Microlet 03/16 Hx Misc 100un three times Johanne Lancets its daily or as Hernandez, - needed M.D. 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 / a day days only Keflex 08/10 Hx Capsules 500mg 40cap 1 by mouth s four times a Ordering - day for 10 Provider . Olux 06/16 Hx Foam 0.05% 1unit apply daily 696.8 s X 10 days Katelin Hernandez M.D. 08/10 Gemfibrozil 04/07 Hx Tablets 600mg 180ta Take One bs Tablet By David, - Mouth Twice M.D. 12/19 A Day /2015 Advair Diskus 12/20 Hx Aerosol 500-50mcg 1 puff bid V72. /Dose Katelin Hernandez M.DPaula 06/21 Metformin HCL 12/20 Hx Tablets 500mg 180ta 1 po bid V72.84 Katelin Kaufman M.D. 08/10 Metformin HCL 09/09 Hx Tablets 500mg 45tab 1 po bid X 1 V784 [facility] s week and Soheila Lim, - then 2 tab M.D.,FACP 12/20 in Am and tab in PM Advair Diskus 09/09 Hx Aerosol 250-50mcg 1unit 1 puff bid V72.84 /Dose s Katelin Hernandez M.D. 12/20 Azithromycin Hx Tablets 250mg as directed - 12/20 Prednisone Hx Tablets 20mg 2 po qd Unknown / - 12/20 Metformin HCL Hx Tablets 500mg 1 po qd Unknown / - 09/09 Coumadin Hx Tablets 5mg 150ta as directed. Katelin Kaufman M.D. 09/27 Immunizations CPT Code Status Date Vaccine Reaction Lot # [id number] Given 08/18/2017 Influenza Virus Vaccine, Quadrivalent, Split, Preservative Free 10664 Given 07/23/2016 Influenza Virus Vaccine, Quadrivalent, [id number] Split Virus, [place] Use [address] Given 06/21/2015 Influenza Virus Vaccine, Quadrivalent, [id number] Split, Preservative Free 71073 Given 06/21/2015 Pneumococcal Conjugate Vaccine 13 [id number] Valent For Intramuscular Use 82800 Given 07/11/2014 Influenza Virus Vaccine, Quadrivalent, no reaction [id number] Split, Preservative Free 74823 Given 06/16/2014 Pneumonia Vaccine [id number] Vital Signs Date Vital Result Comment 04/02/2018 Height 61 inches 5'1" Weight 333.00 [...] Result H/L Range Note Laboratory test finding 09/01/2017 Hemoglobin A1c 6.8 [...] HGB) Hepatitis C Antibody Nonreactive Nonreactive 3 Urine Microalbumin Random 07/23/2016 Urine Creatinine 145.54 mg/dL Ur Microalbumin (mg/L) < 15.0 mg/L Urine Microalbumin/Creatinine TNP ug/mg <31 9 Liver Function Panel 07/23/2016 Total Protein 6.5 g/dL 6.4-8.9 Albumin 3.7 g/dL 3.2-5.2 Globulin 2.8 g/dL 2-4 Albumin/Globulin Ratio 1.3 1-3 Total Bilirubin 0.40 mg/dL 0.2-1.0 Direct Bilirubin 0.10 mg/dL 0.03-0.18 Indirect Bilirubin 0.3 mg/dL 0.3-1.0 Alkaline Phosphatase 113 U/L High 34-104 Alt 33 U/L 7-52 Ast 23 U/L 13-39 Lipid Profile (Trig/Chol/HDL) 07/01/2016 Triglycerides 132 mg/dL [...] Color Straw Urine Appearance Clear Urine Specific [place] 1.008 Low 1.010-1.030 Urine pH 5.0 5-9 [...] Non- 75.0 >60 Egfr 96.5 >60 23 Laboratory test 01/06/2016 D Dimer Quantitative < 200 ng/mL Less Than 230 24 finding CBC Auto Diff 01/06/2016 White Blood Count [...] Blood Cells % 0.1 Laboratory test finding 12/19/2015 Hemoglobin A1c 7.2 High 5-7 CBC Auto Diff 09/22/2015 White Blood Count [...] Inr 03/15/2015 Prothrombin Time 27.8 Inr 2.3 Urine Microalbumin Random 01/13/2015 Ur Microalbumin (mg/L) [...] Hemoglobin A1c 6.7 5-7 Laboratory test finding 11/16/2014 Lipase 103 U/L High 11.0-82.0 C Reactive Protein 3.68 mg/L < 5.00 38 Comp Metabolic Panel 11/16/2014 Sodium 135 mmol/L [...] Egfr Non- 71.1 >60 Egfr 91.5 >60 39 CBC Auto Diff 11/16/2014 White Blood Count [...] 0-2 Nucleated Red Blood Cells % 0 Blood Culture 11/08/2014 Blood Culture (SEE NOTE) [...] -2.0-2.0 46, 47 Hco3 Arterial 26.0 mmol/L - 46 Order 07/11/2014 EKG <pending> Lipid Profile [...] Red Blood Cells % 0 Laboratory test 06/16/2014 Hemoglobin A1c 6.7 5-7 finding Laboratory test 01/26/2014 TSH (Thyroid 2.11 IU/mL 0.34-5.60 53, 54 finding Stimulating Horm) Lipid Profile 01/26/2014 Triglycerides 357 mg/dL 53, 55 (Trig/Chol/HDL) Cholesterol 217 mg/dL 53, 56 HDL Cholesterol 42.4 mg/dL 53, 57 LDL Cholesterol 103 mg/dL 53, 58 Laboratory test finding 12/20/2013 Hemoglobin A1c 6.9 5-7 Laboratory test finding 11/30/2013 Activated Partial 28.5 seconds 24.0- 36.1 Thrombo Time Inr/Protime 11/30/2013 Inr 0.91 0.85-1.06 [...] Color Yellow Urine Appearance Clear Urine Specific [place] 1.005 Low 1.010-1.030 Urine Esterase Negative Negative Urine Nitrate Negative Negative Urine Urobilinogen Negative E.U./dL Negative Urine Protein Negative mg/dL Negative Urine pH 5.5 5-9 Urine Blood Negative Negative Urine Ketones Negative mg/dL Negative Urine Bilirubin Negative Negative Urine Glucose Negative mg/dL Negative Laboratory test finding 09/17/2013 TSH (Thyroid 3.58 [...] Egfr Non- 86.9 >60 Egfr 111.7 >60 66 Lipid Profile (Trig/Chol/HDL) 09/17/2013 Triglycerides 751 mg/dL High 40- 200 Cholesterol 271 mg/dL High Less than 200 HDL Cholesterol 50 mg/dL 40-60 67 Cholesterol/HDL Ratio 5.4 Average High 1-4.44 LDL Cholesterol (SEE NOTE) Less Than 100 68 Laboratory test finding 09/09/2013 Hemoglobin A1c 7.2 High 5-7 Laboratory test finding 07/08/2010 Hemoglobin A1c 5.8 % Less Than 6.0 69 , 70 1 Combiner Operator: [id number] 2 SEE RESULT BELOW Name: JILLIANLASHAWN Demar : [address]: Holger Greer MD Acct: [id number] Unit: [id number] AGE: 57 Location: ED Re08/23/17 SEX: F Status: REG ER SPEC: [id number] MAIA: 08/23/[address] [facility] [address]: Holger Greer MD REQ: [id number] RECD: 08/23/17 STATUS: JOSEY JHA DR: Johanne Hernandez MD _ SOURCE: [facility]: ORDERED: Flu A B Request Procedure Result Reported Site Rapid Influenza A B Request Final 08/23/17- 1549 ML Specimen received for Influenza A/B Molecular testing * ML - MAIN LAB ([facility]) . END OF REPORT * ML=Testing performed at Main Lab DEPARTMENT OF PATHOLOGY, [address] [place] [address] Baltazar Gutierrez M.D. Director [facility] # [id number] FASTING 4 Desirable <150 Borderline high [...] and in selective patients <6.0%.Please refer to [place] [employer] Diabetic care guidelines for further [...] and in selective patients <6.0%.Please refer to [place] [employer] Diabetic care guidelines for further information. 15 Please note: The following may produce a false positive D Dimer test: - Rheumatoid factor greater than 60 IU/ml - Plasma hemoglobin greater than 0.05 gm/dl - Bilirubin greater than 50 mg/dl - Lipids greater than 1000 mg/dl - FDP greater than 20 ug/ml 16 [facility] Severe Sepsis and Septic Shock Management Bundle Measure requires all lactic acids initially measuring >2.0 mmol/L be repeated. 17 Reference Range and Interpretation: TnI (ng/mL) Interpretation Less Than 0.03 ng/mL Not supportive of diagnosis of ID 0.03 - 0.50 ng/mL Indeterminate: suggest serial studies if clinically indicated. Greater than 0.5 ng/mL Consistent with diagnosis of ID 18 Because ethnic data is not always [...] (or dialysis) 19 Acute inflammation: >10.00 20 [id number] 21 The high-risk HPV types detected by the assay include: 16, 18, 31, 33, 35, 39, 45, 51, 52, 56, 58, 59, 66, and 68. 22 SEE RESULT BELOW Name: LASHAWN WALSH : [address]: Tristin Sandhu MD Acct: [id number] Unit: [id number] AGE: 55 Location: [facility] Re02/15/16 SEX: F Status: REG REF SPEC: [id number] MAIA: 02/15/[address] [facility] [address]: Tristin Sandhu MD REQ: [id number] RECD: 02/15/16 STATUS: FERNANDA JHA DR: Toni Hernandez MD _ ORDERED: IMAGE ANALYSIS, HPV/Thin Prep, HPV 16/18 GENE COMMENTS: [id number] FINAL DIAGNOSIS Negative for Intraepithelial lesion or [...] 66, and 68. Signed (signature on file) Chano Ambriz DAVID ([facility]) 02/18 0945 This Pap test was evaluated with the assistance of the WorldratPrep Test Imaging System. Due to cytologic findings at the legal department manager microscope, comprehensive manual rescreening by a Biometrics Consultant may be required. The Pap Smear is [...] performed at Main Lab DEPARTMENT OF PATHOLOGY, [address] [place] [address] RUN DATE: 02/19/16 [facility] LAB LIVE PAGE 1 Patient: MIRNAMARCELALASHAWN [id number] (Continued) Baltazar Gutierrez M.D. Director [facility] # [id number] 23 Because ethnic data is not always [...] - FDP greater than 20 ug/ml 25 [facility] Severe Sepsis and Septic Shock Management Bundle [...] 0.03 ng/mL Not supportive of diagnosis of ID 0.03 - 0.50 ng/mL Indeterminate: suggest serial studies if clinically indicated. Greater than 0.5 ng/mL Consistent with diagnosis of ID 28 Effective immediately, due to a laboratory [...] 12 HOUR 37 FASTING 12 HOUR 38 Acute inflammation: >10.00 39 Because ethnic data is not always readily [...] 15-29 5 Kidney failure <15 (or dialysis) 40 RUN DATE: 11/13/14 [facility] LAB LIVE PAGE 1 RUN TIME: [address] [place] [address] Specimen Inquiry Name: LASHAWN WALSH : [address]: Holger Schroeder MD Acct: [id number] Unit: [id number] AGE: 54 Location: ED Re11/08/14 SEX: F Status: DEP ER SPEC: [id number] MAIA: 11/08/[address]: Elizabeth POND REQ: [id number] RECD: 11/08/14 STATUS: JOSEY JHA DR: Johanne Schroeder MD _ SOURCE: BLOOD,VENO SPDESC: ORDERED: Blood Cult Procedure Result Verified Site Aerobic Culture Bottle Final 11/13/14- 830 ML No Growth Day 5 Anaerobic Culture Bottle Final 11/13/14- 830 ML No Growth Day 5 END OF REPORT * ML=Testing performed at Main Lab DEPARTMENT OF PATHOLOGY, [address] [place] [address] Baltazar Gutierrez M.D. Director [facility] # [id number] 41 Because ethnic data is not always [...] <15 (or dialysis) 42 RUN DATE: 11/13/14 [facility] LAB LIVE PAGE 1 RUN TIME: [address] [place] [address] Specimen Inquiry Name: LASHAWN WALSH Demar : [address]: Holger Schroeder MD Acct: [id number] Unit: [id number] AGE: 54 Location: ED Re11/08/14 SEX: F Status: DEP ER SPEC: [id number] MAIA: 11/08/14 [facility] DR: Elizabeth POND REQ: [id number] RECD: 11/08/14 STATUS: JOSEY JHA DR: Johanne Schroeder MD _ SOURCE: BLOOD,VENO SPDES: ORDERED: Blood Cult Procedure Result Verified Site Aerobic Culture Bottle Final 11/13/14- 25 ML No Growth Day 5 Anaerobic Culture Bottle Final 11/13/14- 25 ML No Growth Day 5 END OF REPORT * ML=Testing performed at Main Lab DEPARTMENT OF PATHOLOGY, [facility] [employer] [place] [address] Baltazar Gutierrez M.D. Director [facility] # [id number] 43 RUN DATE: 11/08/14 [facility] LAB LIVE PAGE 1 RUN TIME: 828 [facility] [employer] [place] [address] Specimen Inquiry Name: LASHAWN WALSH : [address]: Holger Schroeder MD Acct: [id number] Unit: [id number] AGE: 54 Location: ED Re11/08/14 SEX: F Status: REG ER SPEC: [id number] MAIA: 11/08/14-0[address] [facility] [address]: Elizabeth POND REQ: [id number] RECD: 11/08/14 STATUS: JOSEY JHA DR: Johanne Schroeder MD _ SOURCE: [facility]: ORDERED: Rapid Flu A B Procedure Result Verified Site Rapid Influenza A B Antigen Final 11/08/14828 ML Organism 1 Negative Influenza A B Antigen testing by enzyme immunoassay. Cell culture testing can be performed to confirm negative test results and to assist in detecting other viruses that can produce similar clinical symptoms. Please notify Microbiology Lab if further testing is desired. END OF REPORT * ML=Testing performed at Main Lab DEPARTMENT OF PATHOLOGY, [address] [place] [address] Baltazar Gutierrez M.D. Director [facility] # [id number] 44 Because ethnic data is not always [...] failure <15 (or dialysis) 46 Verbal to [id number] by [id number] at 1540 on 07/14/14.~Results read back accurately. [...] by infection with HBV. 53 FASTING 54 FASTING 55 Desirable <150 Borderline high 150-199 High 200-499 Very High >500 56 Desirable <200 Borderline high 200-239 High >239 57 Low <40 Desirable: 40-60 High: >60 58 Desirable <100 Near Optimal 100-129 Borderline high 130-159 High 160-189 Very High >189 59 Because ethnic data is not always [...] <15 (or dialysis) 60 RUN DATE: 11/30/13 [facility] LAB LIVE PAGE 1 RUN TIME: [address] [place] [address] Specimen Inquiry Name: LASHAWN WALSH : [address]: Don Sandoval MD Acct: [id number] Unit: [id number] AGE: 53 Location: ED Re11/30/13 SEX: F Status: REG ER SPEC: [id number] MAIA: 11/30/[address] [facility] [address]: Alexandre Aguilar MD REQ: [id number] RECD: 11/30/13 STATUS: JOSEY JHA DR: [facility] Johanne Hernandez MD _ SOURCE: [facility]: ORDERED: Rapid Flu A B Procedure Result [...] performed at Main Lab DEPARTMENT OF PATHOLOGY, [facility] [employer] [place], [place] [address] Baltazar Gutierrez M.D. Director [facility] Permit #[id number] 61 RUN DATE: 12/05/13 [facility] LAB LIVE PAGE 1 RUN TIME: 0850 [facility] [employer] [place], [place] [address] Specimen Inquiry Name: LASHAWN WALSH : [address]: Don Sandoval MD Acct: [id number] Unit: [id number] AGE: 53 Location: ED Re11/30/13 SEX: F Status: DEP ER SPEC: [id number] MAIA: 11/30/13[address] [facility] [address]: Don Sandoval MD REQ: [id number] RECD: 11/30/13 STATUS: JOSEY JHA DR: Johanne Hernandez MD _ SOURCE: BLOOD,VENO SPDESC: ORDERED: Blood Cult Procedure Result Verified Site Aerobic Culture Bottle Final 12/05/13- 0850 ML No Growth Day 5 Anaerobic Culture Bottle Final 12/05/13- 0850 ML No Growth Day 5 END OF REPORT * ML=Testing performed at Main Lab DEPARTMENT OF PATHOLOGY, [facility] [employer] [place], [place] [address] Baltazar Gutierrez M.D. Director [facility] Permit #[id number] 62 RUN DATE: 12/05/13 [facility] LAB LIVE PAGE 1 RUN TIME: 0850 [facility] [employer] [place], [place] [address] Specimen Inquiry Name: LASHAWN WALSH : [address]: Don Sandoval MD Acct: [id number] Unit: [id number] AGE: 53 Location: ED Re11/30/13 SEX: F Status: DEP ER SPEC: [id number] MAIA: 11/30/13 [facility] [address]: Don Sandoval MD REQ: [id number] RECD: 11/30/13 STATUS: JOSEY JHA DR: Johanne Hernandez MD _ SOURCE: BLOOD,VENO SPDESC: ORDERED: Blood Cult Procedure Result Verified Site Aerobic Culture Bottle Final 12/05/13- 0850 ML No Growth Day 5 Anaerobic Culture Bottle Final 12/05/13- 0850 ML No Growth Day 5 END OF REPORT * ML=Testing performed at Main Lab DEPARTMENT OF PATHOLOGY, [facility] [employer] [place], [place] [address] Baltazar Gutierrez M.D. Director [facility] Permit #[id number] 63 RUN DATE: 12/02/13 [facility] LAB LIVE PAGE 1 RUN TIME: 1011 [address] [employer] [place], [place] [address] Specimen Inquiry Name: LASHAWN WALSH : [address]: Don Sandoval MD Acct: [id number] Unit: [id number] AGE: 53 Location: ED Re11/30/13 SEX: F Status: DEP ER SPEC: [id number] MAIA: 11/30/13 [facility] [address]: Don Sandoval MD REQ: [id number] RECD: 11/30/13 STATUS: JOSEY JHA DR: Johanne Hernandez MD _ SOURCE: URINE SPDESC: ORDERED: Urine Culture Procedure Result Verified Site Urine Culture Final 12/02/13- 1011 ML Mixed magalie; possible contamination. Suggest resubmission. END OF REPORT * ML=Testing performed at Main Lab DEPARTMENT OF PATHOLOGY, [address] [place] [address] Baltazar Gutierrez M.D. Director [facility] Permit #[id number] 64 FASTING 65 Microalbuminuria in a random sample is defined as: Microalbumin/Creatinine ratio of 30-299 ug/mg. 66 Because ethnic data is not always readily [...] 15-29 5 Kidney failure <15 (or dialysis) 67 HDL Interpretation: Undesirable: High Risk: Less than 40 mg/dL Desirable: Low Risk: Greater than 60 mg/dL 68 Unable to calculate LDL as triglyceride is > 400 69 COMMENTS: N 70 THERAPEUTIC TARGET FOR THE TREATMENT OF DIABETES MELLITUS PATIENTS IS <7% HBA1C, AND IN SELECTIVE PATIENTS <6.0%. PLEASE REFER TO [place] [employer] DIABETIC CARE GUIDELINES FOR FURTHER INFORMATION. Procedures Date CPT Code Description Status Comment 02/25/2017 78406 EKG Tracing & Interpretation Completed 10/16/2015 31102 EKG Tracing & Interpretation Completed 10/11/2015 71681 Holter Monitoring 24 HR New Completed 10/09/2015 11454 Holter Monitoring 24 HR New Completed 09/27/2015 Diabetic Retinal Eye Exam Completed 07/14/2014 76776 Spirometry Incl Graphic Record, Timed Completed Expiratory Flow Rate 07/11/2014 77765 EKG Tracing & Interpretation Completed 06/24/2014 Mammogram Completed 05/24/2014 Diabetic Retinal Eye Exam Completed 08/03/2008 Colonoscopy Completed 09/04/49 Colonoscopy Completed per pt ( nl) Encounters Type Date Location Provider CPT E/M Dx Office Visit 04/02/2018 Pul[facility]ology [place] [address] J44.1 9:15a [facility] G47.33 E66.01 K21.9 Office Visit 09/01/2017 8:10a [facility] Internal Medicine Johanne Hernandez M.D. 94077 E11.9 - [place] E11.9 J44.9 J44.9 D18.03 R93.8 Z91.19 D18.03 Z91.19 Office Visit 08/25/2017 11:48a [facility] Kaushik Conrad, 06[address] J44.1 Assoc,pc [facility]ists I10 E78.5 G47.33 Office Visit 08/24/2017 11:47a [facility] Rosalie Sharma N.[place] [address] J44.1 Hospitalists G47.33 I10 E78.5 Office Visit 08/23/2017 11:46a [facility] Patrick Davis, 92252 J44.1 Hospitalists N.P. G47.33 I10 E78.5 Office Visit 04/01/2017 10:10a [facility] Internal Medicine Johanne Hernandez M.D. 92073 E11.9 - [place] D18.03 E78.2 E03.8 Z12.31 F32.89 Office Visit 02/25/2017 10:20a [facility] [address] I47.1 [facility] FACC Office Visit 07/24/2016 2:15p [facility] [place], [address] E66.01 [facility] FACS R19.7 Office Visit 07/23/2016 10:10a [facility] Internal Medicine Johanne Hernandez M.D. 42991 K52.9 - [place] E78.4 E11.9 Z23 F43.20 D18.03 L60.3 Office Visit 03/14/2016 10:00a [facility] [place] [address] J45.909 [facility] G47.33 E66.01 Office Visit 01/11/2016 10:50a [facility] Internal Medicine Johanne Hernandez 66152 L03.114 - [place] Willing[place] F43.20 Office Visit 12/19/2015 10:30a [facility] Internal Medicine Johanne Hernandez M.D. 59744 E11.9 - [place] C54.1 E78.2 F43.20 Office Visit 10/16/2015 1:00p [facility] [address] R00.2 [facility] E11.9 G47.33 E03.8 J44.9 E66.8 Office Visit 09/27/2015 11:50a [facility] Internal Medicine Johanne Hernandez M.D. 95085 R00.2 - [place] B34.9 Office Visit 06/21/2015 9:50a [facility] Internal Medicine Johanne Hernandez 41564 250.00 - [place] 110.1 V03.82 V04.81 453.82 110.8 300.00 Office Visit 05/04/2015 9:00a [facility] Richi Clemens M.D. 10622 493.90 [facility] 327.23 Office Visit 04/11/2015 10:50a [facility] Internal Medicine Johanne Hernandez 56192 787.02 - [place] 300.00 453.82 Office Visit 03/15/2015 11:50a [facility] Internal Medicine Johanne Hernandez, 74339 453.82 - [place] 729.82 V45.89 285.1 250.00 V58.61 Office Visit 01/30/2015 9:30a [facility] Internal Medicine - Reid Kazakh, SUBMARINE OPERATOR [address] 461.8 461.9 Office Visit 12/26/2014 10:10a [facility] Internal Medicine Johanne Hernandez 91130 250.00 - [place] 272.1 691.8 244.8 288.60 Office Visit 09/16/2014 10:00a [facility] Richi Clemens M.D. 54912 493.00 [facility] 327.23 Office Visit 08/10/2014 1:50p [facility] Internal Medicine - Johanne Hernandez, 08899 682.8 [place] Office Visit 08/07/2014 9:39a [facility], [place], [address] 486 Hospitalists M.Soheila 496 038.9 278.00 Office Visit 08/06/2014 9:38a [facility], Sav [place], [address] 486 Hospitalists M.DPaula 496 038.9 278.00 Office Visit 08/05/2014 9:37a [facility], Patrick Davis, 17795 486 Hospitalists N.P. 496 038.9 278.00 Office Visit 07/14/2014 1:30p [facility] Richi Clemens M.D. 20225 327.23 [facility] 493.00 Office Visit 07/11/2014 12:10p [facility] Johanne Hernandez, 11021 V72.84 - Fransico Willingham 627.0 272.1 250.00 327.23 244.8 696.8 V04.81 278.01 493.90 Office Visit 06/16/2014 10:50a [facility] Johanne Hernandez, 67783 250.00 - Fransico Willingham 493.90 696.8 703.8 627.0 272.1 V03.82 Office Visit 04/07/2014 1:10p [facility] Johanne Hernandez M.D. 95456 847.0 - Fransico 847.0 Office Visit 12/20/2013 2:30p [facility] Johanne Hernandez 10992 250.00 - Fransico Willingham 272.1 327.23 244.8 493.90 Office Visit 09/09/2013 11:10a [facility] Johanne Hernandez 81943 493.90 - Fransico Willingham 477.9 244.8 250.02 Office Visit 11/04/2012 9:15a [facility] Raisa Limon, 92459 841.0 Of Rajesh Willingham Office Visit 09/23/2012 8:15a [facility] Raisa Limon 78772 719.44 Of Rajesh Willingham Plan of Care Future Appointment(s):06/02/2018 10:30 am - Andreina Pelayo MD at [facility]04/09/2018 9:50 am - Johanne Hernandez M.D. at [facility]04/02/2018 - Andreina Pelayo MDJ44.1 Chronic obstructive pulmonary disease w (acute) exacerbationNew Medication:Prednisone 10 mgDoxycycline Hyclate 100 mgFollow up:2 [id number] Obstructive sleep apnea (adult) (pediatric)E66.01 Morbid (severe) obesity due to excess [id number] Gastro-esophageal reflux disease without esophagitisComments:Try Ranitidine 150mg daily at night for 1 month
[2018-04-27] MEDS ORDERED: Iodixanol* (CONTRAST) 320 MG/ML 100 ML SDV IV ONE (01:41)
--- NOTE | 2018-04-27 01:44 | HP ---
H&P (Free Text) History and Physical: PCP: Leonard Hernandez MD Date/Time: 04/27/2018 0125 CC: SOB, hypoxia HPI: Mrs Walsh is a 58YO super-morbidly obese female HX DM2, COPD, uterine CA, HTN, HLD, MOISE who presents with onset yesterday of SOB, F/C, sweats, and fatigue. She has chronic chest pressure and this is unchanged. She denies N/V/D , abdominal pain, rash, or other issues. Phlegm is clear and thick. She had recently seen Dr Pelayo, her emergency response officer, who prescribed her a course of steroids that she finished ~1 week ago. PMedHx DM2 COPD HX uterine CA HTN HLD hypothyroidism MOISE on BiPap chronic BLE edema migraine Ambulatory Orders Nursing to reconcile. Albuterol Sulfate [Ventolin Hfa] 2 puff IN Q6HR PRN 02/11/14 Levothyroxine TAB (NF) [Synthroid TAB (NF)] 175 mcg PO DAILY 02/11/14 Atorvastatin* [Lipitor 20 MG*] 20 mg PO 1700 08/23/17 Cholestyramine Resin* [Questran*] 1 packet PO DAILY 08/23/17 Metformin HCl [Glucophage] 850 mg PO BID 08/23/17 Sitagliptin Phosphate [Januvia] 50 mg PO DAILY 08/23/17 dilTIAZem HCl [Cartia Xt] 120 mg PO DAILY 08/23/17 Albuterol/Ipratropium [place]* [Duoneb (Albuterol 2.5 MG/Ipratropium 0.5 MG)] 1 neb INH QID #1 box 08/25/17 Allergies levofloxacin Adverse Reaction (Mild, Verified 04/27/18 01:28) Itching SocHx: quit smoking ~20 years ago, no alcohol or recreational drugs; lives alone ; full code status FamHx: Mother: lung CA ROS: as above, otherwise reviewed and all were negative vitals: Vital Signs Temp 37.5 C 04/26/18 23:39 Pulse 107 04/27/18 01:00 Resp 20 04/26/18 23:55 BP 125/92 04/26/18 23:48 Pulse Ox 99 04/27/18 01:00 Intake & Output 04/26/18 04/26/18 04/27/18 11:59 23:59 11:59 Weight 151.046 kg Constitutional: NAD, normally developed, super-morbidly obese white female HEENM: atraumatic; sclera/conjunctiva: anicteric/clear; hearing: clinically intact; oropharynx: clear, mucosa moist Neck: soft tissue: non-tender; thyroid: normal Pulmonary: R basilar crackle, no wheeze, fair aeration, no accessory muscle use CV: RR/RR, normal S1S2, no carotid bruit, no jugular venous distention, 2+ B DP/ PT, 3+ BLE edema Abdominal: soft, non-distended, non-tender, no rebound/guarding/rigidity, normoactive bowel sounds, no hepatosplenomegaly or masses, no costovertebral angle tenderness Musculoskeletal: general: grossly intact, non-tender Integumental: normal appearance and texture of exposed skin Psychiatric orientation: AA&O to PPS affect: calm mood: cooperative eye contact: fair to good content: reliable responses: timely insight: fair to good Testing: Lab Results 04/27/18 04/27/18 04/27/18 Range/Units 00:11 00:11 00:11 WBC 17.0 H (3.5-10.8) 10^3/ul RBC 3.99 L (4.00-5.40) 10^6/ul Hgb 11.9 L (12.0-16.0) g/dl Hct 36 (35-47) % MCV 91 (80-97) fL MCH 30 (27-31) pg MCHC 33 (31-36) g/dl RDW 15 (10.5-15) % Plt Count 242 (150-450) 10^3/ul MPV 7.3 L (7.4-10.4) um3 Neut % (Auto) 87.5 H (38-83) % Lymph % (Auto) 7.4 L (25-47) % [place] % (Auto) 4.4 (0-7) % Eos % (Auto) 0.2 (0-6) % Baso % (Auto) 0.5 (0-2) % Absolute Neuts (auto) 14.9 H (1.5-7.7) 10^3/ul Absolute Lymphs (auto) 1.3 (1.0-4.8) 10^3/ul Absolute Monos (auto) 0.8 (0-0.8) 10^3/ul Absolute Eos (auto) 0 (0-0.6) 10^3/ul Absolute Basos (auto) 0.1 (0-0.2) 10^3/ul Absolute Nucleated RBC 0 10^3/ul Nucleated RBC % 0 INR (Anticoag Therapy) 0.92 (0.77-1.02) APTT 33.1 (26.0-36.3) seconds Sodium 135 (135-145) mmol/L Potassium 4.5 (3.5-5.0) mmol/L Chloride 100 L (101-111) mmol/L Carbon Dioxide 23 (22-32) mmol/L Anion Gap 12 H (2-11) mmol/L BUN 34 H (6-24) mg/dL Creatinine 1.12 H (0.51-0.95) mg/dL Est GFR ( Amer) 60.0 (>60) Est GFR (Non-Af Amer) 49.6 (>60) BUN/Creatinine Ratio 30.4 H (8-20) Glucose 154 H (70-100) mg/dL Lactic Acid (0.5-2.0) mmol/L Calcium 9.0 (8.6-10.3) mg/dL Total Bilirubin 0.70 (0.2-1.0) mg/dL AST 17 (13-39) U/L ALT 18 (7-52) U/L Alkaline Phosphatase 70 (34-104) U/L Troponin I 0.00 (<0.04) ng/mL C-Reactive Protein 9.50 H (<8.01) mg/L B-Natriuretic Peptide ( - 100) pg/mL Total Protein 6.2 L (6.4-8.9) g/dL Albumin 3.4 (3.2-5.2) g/dL Globulin 2.8 (2-4) g/dL Albumin/Globulin Ratio 1.2 (1-3) 04/27/18 04/27/18 Range/Units 00:11 00:11 WBC (3.5-10.8) 10^3/ul RBC (4.00-5.40) 10^6/ul Hgb (12.0-16.0) g/dl Hct (35-47) % MCV (80-97) fL MCH (27-31) pg MCHC (31-36) g/dl RDW (10.5-15) % Plt Count (150-450) 10^3/ul MPV (7.4-10.4) um3 Neut % (Auto) (38-83) % Lymph % (Auto) (25-47) % [place] % (Auto) (0-7) % Eos % (Auto) (0-6) % Baso % (Auto) (0-2) % Absolute Neuts (auto) (1.5-7.7) 10^3/ul Absolute Lymphs (auto) (1.0-4.8) 10^3/ul Absolute Monos (auto) (0-0.8) 10^3/ul Absolute Eos (auto) (0-0.6) 10^3/ul Absolute Basos (auto) (0-0.2) 10^3/ul Absolute Nucleated RBC 10^3/ul Nucleated RBC % INR (Anticoag Therapy) (0.77-1.02) APTT (26.0-36.3) seconds Sodium (135-145) mmol/L Potassium (3.5-5.0) mmol/L Chloride (101-111) mmol/L Carbon Dioxide (22-32) mmol/L Anion Gap (2-11) mmol/L BUN (6-24) mg/dL Creatinine (0.51-0.95) mg/dL Est GFR ( Amer) (>60) Est GFR (Non-Af Amer) (>60) BUN/Creatinine Ratio (8-20) Glucose (70-100) mg/dL Lactic Acid 2.4 H* (0.5-2.0) mmol/L Calcium (8.6-10.3) mg/dL Total Bilirubin (0.2-1.0) mg/dL AST (13-39) U/L ALT (7-52) U/L Alkaline Phosphatase (34-104) U/L Troponin I (<0.04) ng/mL C-Reactive Protein (<8.01) mg/L B-Natriuretic Peptide 12 ( - 100) pg/mL Total Protein (6.4-8.9) g/dL Albumin (3.2-5.2) g/dL Globulin (2-4) g/dL Albumin/Globulin Ratio (1-3) ECG, personally reviewed: sinus tachycardia rate 114, no ischemia CXR, personally reviewed: rosa-cardial infiltrate CTA chest, personally reviewed: IMPRESSION: 1. No evidence of pulmonary embolus to the lobar level, but smaller peripheral vessels cannot be assessed due to bolus timing and motion artifact. 2. Patchy right greater than left lower lobe opacities, suspicious for pneumonia although alveolar hemorrhage or atypical edema could have a similar appearance. 3. Other nonemergent findings as above. Impression: 58F HX DM2, COPD, uterine CA, HTN, HLD, MOISE presenting with severe sepsis (tachycardia, tachypnea, leukocytosis, KYA, & hypoxia) 2nd RML pneumonia , suspect S pneumonia DIAGNOSIS & PLAN Primary severe sepsis 2nd RML pneumonia, suspect S pneumonia : IV azithromycin & piperacillin/tazobactam given in ED : will continue with IV azithromycin & ceftriaxone : given super-morbid obesity, will only give 15cc/kg IVF & monitor clinical course : blood & sputum CXs : check urine Legionella & S pneumo antigens : supplemental oxygen : supportive care acute respiratory failure with hypoxia : as above KYA : IVFs, trend Secondary DM2 : check A1c : consistent carb diet : correctional insulin ACHS COPD HX uterine CA : no acute issues HTN : hold anti-hypertensives in setting of severe sepsis : trend & re-institute as indicated HLD : review meds once reconciled hypothyroidism : review meds once reconciled MOISE : continue home BiPap migraine : review meds once reconciled Admission Rational: Inpatient as without the above interventions the risk of impending adverse outcome is unacceptably high; inappropriate for the outpatient setting DVTp: heparin SQ & SCDs Code Status: full HCP: daughterRaisa Critical Care time: 45min, with >50% spent at the bedside obtaining history, performing exam, advising of diagnosis/treatment, and risks/benefits; remainder spent reviewing labs/radiology exams, discussing with ED provider
[2018-04-27] MEDS ORDERED: Acetaminophen TAB* 325 MG PO PRN (03:23)
[2018-04-27] MEDS ORDERED: Ondansetron ODT TAB* 4 MG PO PRN (03:24)
[2018-04-27] MEDS ORDERED: Melatonin 3 MG TAB PO PRN (03:24)
[2018-04-27] MEDS ORDERED: traMADol TAB* 50 MG PO PRN (03:24)
[2018-04-27] MEDS ORDERED: NS 0.9% 1000 ML* 1,000 ML IV SCH (03:30)
[2018-04-27] MEDS: Omeprazole CAP* 20 MG PO SCH (06:01)
[2018-04-27] MEDS: NS 0.9% IV SCH ×2 (06:02→11:13)
[2018-04-27] MEDS ORDERED: Albuterol HFA INHALER* 8 gm MDI INH PRN (06:07)
[2018-04-27] MEDS ORDERED: Albuterol/Ipratropium NEB.SOL* Albuterol 2.5 MG/Ipratropium 0.5 MG 3 ML ONE (06:21)
[2018-04-27] MEDS: Albuterol/Ipratropium NEB.SOL* Albuterol 2.5 MG/Ipratropium 0.5 MG 3 ML INH SCH ×5 (06:22→22:14)
--- NOTE | 2018-04-27 07:42 | PN ---
Subjective Date of Service: 04/27/18 Interval History: Ms. Walsh reports feeling very tired as she did not sleep last night. She also continues to feel short of breath with a cough. She denies chest pain, nausea, or abdominal pain. She reports that she does feel better than when she first arrived yesterday. Objective Active Medications: Acetaminophen (Tylenol Tab*) 650 mg PO Q6H PRN Albuterol (Ventolin Hfa Inhaler*) 2 puff INH Q6HR PRN Albuterol/Ipratropium (Duoneb (Albuterol 2.5 Mg/Ipratropium 0.5 Mg)) 1 neb INH QID GENIA Atorvastatin Calcium (Lipitor*) 20 mg PO 1700 GENIA Cholestyramine Resin (Questran*) 4 gm PO DAILY GENIA Docusate Sodium (Colace Cap*) 200 mg PO BID GENIA Guaifenesin (Mucinex*) 1,200 mg PO BID GENIA Heparin Sodium (Porcine) (Heparin Vial(*)) 5,000 units SUBCUT Q8HR GENIA Azithromycin 500 mg/ Sodium (Chloride) 250 mls @ 250 mls/hr IVPB Q24H GENIA Sodium Chloride (Ns 0.9% 1000 Ml*) 1,000 mls @ 125 mls/hr IV PER RATE GENIA Sodium Chloride (Ns 0.9% 1000 Ml*) 1,250 mls @ 0 mls/hr IV WIDE OPEN GENIA Ceftriaxone Sodium 1,000 mg/ (Sodium Chloride) 50 mls @ 200 mls/hr IVPB Q24H GENIA Azithromycin 500 mg/ Sodium (Chloride) 250 mls @ 250 mls/hr IVPB Q24H [facility] Insulin Human Lispro (Humalog*) 0 units SUBCUT ACHS GENIA; Protocol Levothyroxine Sodium (Synthroid Tab*) 175 mcg PO DAILY@0600 [facility] Melatonin (Melatonin) 3 mg PO BEDTIME PRN; Protocol Metformin HCl (Glucophage*) 850 mg PO BID GENIA Omeprazole (Prilosec Cap*) 20 mg PO DAILY@0600 [facility] Ondansetron HCl (Zofran Odt Tab*) 4 mg PO Q6H PRN Sitagliptin Phosphate (Januvia (Nf)) 50 mg PO DAILY GENIA; Protocol Tramadol HCl (Ultram*) 50 mg PO Q6H PRN Vital Signs: Temp Pulse Resp BP Pulse Ox 98.1 F 102 22 132/59 97 07/23/18 07:19 04/27/18 07:19 04/27/18 07:19 04/27/18 07:19 04/27/18 07:19 Oxygen Devices in Use Now: Nasal Cannula Appearance: Female lying in bed, appears tired but in NAD Eyes: No Scleral Icterus Ears/Nose/Mouth/Throat: Mucous Membranes Moist Neck: Trachea Midline Respiratory: Symmetrical Chest Expansion and Respiratory Effort, - - Rhonchi in bases noted Cardiovascular: NL Sounds; No Murmurs; No JVD, No Edema Abdominal: NL Sounds; No Tenderness; No Distention Lymphatic: No Cervical Adenopathy Extremities: No Edema Skin: No Rash or Ulcers Neurological: Alert and Oriented x 3, NL Muscle Strength and Tone Nutrition: Taking PO's Result Diagrams: 04/27/18 08:50 04/27/18 08:50 Assess/Plan/Problems-Billing Assessment: Ms. Walsh is a 58 yo F with a PMH of COPD, DM, and HTN who was admitted with sepsis secondary to pneumonia with acute hypoxic respiratory failure. - Patient Problems (1) Pneumonia Comment: - With sepsis based on 2 SIRS criteria, mild hypoxia, and mild KYA. - Acute hypoxic respiratory failure stable, remains on 3L NC. - Continue ceftriaxone and azithromycin. (2) COPD (chronic obstructive pulmonary disease) Comment: - No wheezing to suggest exacerbation. - Continue albuterol prn. (3) Diabetes mellitus Comment: - Uncontrolled. BG 340 this AM, likely secondary to high dose steroids on arrival. - Hold metformin and sitagliptin. Continue lispro SSI coverage with meals. Start low dose lantus this AM, adjust as needed. (4) Hypertension Comment: - SBP 130s, in 90s overnight. - Hold diltiazem during acute illness. Continue IVF. (5) Dyslipidemia Comment: - Continue atorvastatin and cholestyramine. (6) Hypothyroid Comment: - TSH 3.25. - Continue levothyroxine. (7) MOISE (obstructive sleep apnea) Comment: - Continue CPAP/BiPAP qPM. (8) DVT prophylaxis Comment: - Heparin SQ. (9) Full code status Current Visit: No Comment: Status and Disposition: Inpatient with expected LOS > 2 days. Anticipate discharge to home when medically stable.
--- NOTE | 2018-04-27 08:14 | RAD ---
HISTORY: SOB COMPARISONS: September 22, 2015 TECHNIQUE: Multiple contiguous axial CT scans of the chest were obtained after the administration of nonionic intravenous contrast, timed to the pulmonary arterial phase of contrast enhancement.. Coronal and sagittal multiplanar reformations are also submitted for review. FINDINGS: Evaluation is limited by suboptimal contrast opacification. The attenuation of the main pulmonary artery is less than 200 Hounsfield units which is considered nondiagnostic for the detection of pulmonary embolism. NECK AND THYROID: The lower neck and thyroid are unremarkable. CHEST WALL: There is no lower cervical, axillary, or supraclavicular lymphadenopathy by size criteria. HEART AND PERICARDIUM: The heart is unremarkable. AORTA AND PULMONARY VASCULATURE: As noted above, the attenuation of the main pulmonary artery is not considered to be diagnostic for the detection of pulmonary embolism. There is no large or proximal filling defect to suggest pulmonary embolism. The aorta is unremarkable for technique. MEDIASTINUM: There is no mediastinal lymphadenopathy by size criteria. JUSTYN: There is a 1 cm short axis right hilar lymph node. AIRWAY AND ESOPHAGUS: The airway is unremarkable, without endobronchial filling defect. The esophagus is grossly normal. LUNG PARENCHYMA: There is patchy alveolar opacification of the lung bases bilaterally. There is calcified granuloma of the lingula. PLEURA: No pleural abnormalities are noted. UPPER ABDOMEN: There is fatty infiltration of the liver. BONES AND SOFT TISSUES: Degenerative changes are noted of the spine. OTHER: None. IMPRESSION: 1. THE ATTENUATION OF THE MAIN PULMONARY ARTERY IS LESS THAN 200 HOUNSFIELD UNITS WHICH IS CONSIDERED NONDIAGNOSTIC FOR THE DETECTION OF PULMONARY EMBOLISM. THE CHANGE FROM THE PULMONARY REPORT WAS DISCUSSED WITH DR. PAUL AT APPROXIMATELY 8:09 AM ON APRIL 27, 2018. 2. PATCHY AIRSPACE DISEASE OF THE LOWER LUNGS BILATERALLY. 3. BORDERLINE ENLARGED RIGHT HILAR LYMPH NODE. 4. FATTY INFILTRATION OF THE LIVER.. R3
--- NOTE | 2018-04-27 08:16 | RAD ---
HISTORY: SOB COMPARISONS: August 23, 2017, CTA dated April 27, 2018. VIEWS: 1: frontal portable view of the chest at 12:04 AM FINDINGS: LINES AND TUBES: None. CARDIOMEDIASTINAL SILHOUETTE: The cardiomediastinal silhouette is stable. PLEURA: The costophrenic angles are sharp. No pleural abnormalities are noted. LUNG PARENCHYMA: There is patchy alveolar opacification lung bases bilaterally. ABDOMEN: The upper abdomen is clear. There is no subphrenic gas. BONES AND SOFT TISSUES: No bone or soft tissue abnormalities are noted. IMPRESSION: PATCHY BIBASILAR ATELECTASIS VERSUS CONSOLIDATION. R0
[2018-04-27] MEDS ORDERED: Insulin GLARGINE(*) 1 UNITS UNIT SUBCUT ONE (08:29)
[2018-04-27] MEDS: Insulin LISPRO* 1 UNITS UNIT SUBCUT SCH ×4 (08:38→22:47)
[2018-04-27] MEDS: cefTRIAXone VIAL(*) 1,000 MG in NS 0.9% 50 ML* 50 ML IVPB SCH (08:38)
[2018-04-27] MEDS: Levothyroxine TAB* 175 MCG TAB PO SCH (08:38)
[2018-04-27] MEDS: Docusate CAP* 100 MG PO SCH ×2 (08:39→22:47)
[2018-04-27] MEDS: Cholestyramine Resin* 4 GM POWDER PO SCH (08:39)
[2018-04-27] MEDS: guaiFENesin ER TAB 600 MG PO SCH ×2 (08:41→22:48)
[2018-04-27] MEDS ORDERED: Sitagliptin (NF) 50 MG TAB PO SCH (09:00)
[2018-04-27] MEDS ORDERED: metFORMIN* 850 MG TAB PO SCH (09:00)
[2018-04-27 09:13] LABS: ABS Basophils 0 10^3/ul (0-0.2); ABS Eosinophils 0 10^3/ul (0-0.6); ABS Lymphocytes 0.2 10^3/ul (1.0-4.8); ABS Monocytes 0.1 10^3/ul (0-0.8); ABS Neutrophils 13.2 10^3/ul (1.5-7.7); ABS Nucleated RBC 0 10^3/ul; Eosinophil % 0 % (0-6); Hematocrit 38 % (35-47); Hemoglobin 12.3 g/dl (12.0-16.0); Lymphocyte % 1.7 % (25-47); Mean Corpuscular HGB Conc 33 g/dl (31-36); Mean Corpuscular Hemoglobin 30 pg (27-31); Mean Corpuscular Volume 91 fL (80-97); Mean Platelet Volume 7.4 um3 (7.4-10.4); Nucleated Red Blood Cells % 0; Platelet Count 189 10^3/ul (150-450); Red Blood Count 4.16 10^6/ul (4.00-5.40); Red Cell Distribution Width 15 % (10.5-15); White Blood Count 13.6 10^3/ul (3.5-10.8)
[2018-04-27 09:19] LABS: EGFR Non-African American 66.4 (>60)
[2018-04-27] MEDS: Nystatin TOP POWDER* 15 GM BTL TOPICAL SCH ×2 (11:06→22:52)
[2018-04-27 12:57] LABS: Urine Appearance Cloudy; Urine Blood Negative (Negative); Urine Color Straw; Urine Ketones 1+ (Negative); Urine Protein Negative (Negative); Urine Specific Gravity 1.021 (1.010-1.030); Urine Urobilinogen Negative (Negative)
[2018-04-27] MEDS: Atorvastatin* 20 MG TAB PO SCH (17:06)
[2018-04-28] MEDS: Azithromycin IV(*) 500 MG in NS 0.9% 250 ML* 250 ML IVPB SCH (00:13)
[2018-04-28] MEDS: Heparin VIAL(*) 5000 UNITS/ML VIAL (FIVE THOUSAND) SUBCUT SCH ×3 (05:28→21:59)
[2018-04-28] MEDS: Omeprazole CAP* 20 MG PO SCH (05:28)
[2018-04-28] MEDS: Levothyroxine TAB* 175 MCG TAB PO SCH (05:29)
[2018-04-28] MEDS: Albuterol/Ipratropium NEB.SOL* Albuterol 2.5 MG/Ipratropium 0.5 MG 3 ML INH SCH ×3 (07:25→19:35)
[2018-04-28] MEDS: Insulin LISPRO* 1 UNITS UNIT SUBCUT SCH ×4 (08:51→21:58)
[2018-04-28] MEDS: Cholestyramine Resin* 4 GM POWDER PO SCH (08:54)
[2018-04-28] MEDS: guaiFENesin ER TAB 600 MG PO SCH ×2 (08:55→21:58)
[2018-04-28] MEDS: cefTRIAXone VIAL(*) 1,000 MG in NS 0.9% 50 ML* 50 ML IVPB SCH (08:56)
[2018-04-28] MEDS: Docusate CAP* 100 MG PO SCH ×2 (08:56→21:57)
[2018-04-28] MEDS: Nystatin TOP POWDER* 15 GM BTL TOPICAL SCH ×2 (11:27→21:59)
--- NOTE | 2018-04-28 14:06 | PN ---
Subjective Date of Service: 04/28/18 Interval History: Ms. Walsh reports feeling somewhat better though she continues to have a cough and feel short of breath with mobility. She has been titrated down to 1L NC this morning. She denies chest pain, nausea, or abdominal pain. Objective Active Medications: Acetaminophen (Tylenol Tab*) 650 mg PO Q6H PRN Albuterol (Ventolin Hfa Inhaler*) 2 puff INH Q6HR PRN Albuterol/Ipratropium (Duoneb (Albuterol 2.5 Mg/Ipratropium 0.5 Mg)) 1 neb INH RT.[id number] AWAKE GENIA Atorvastatin Calcium (Lipitor*) 20 mg PO 1700 GENIA Cholestyramine Resin (Questran*) 4 gm PO DAILY GENIA Docusate Sodium (Colace Cap*) 200 mg PO BID GENIA Guaifenesin (Mucinex*) 1,200 mg PO BID [facility] Heparin Sodium (Porcine) (Heparin Vial(*)) 5,000 units SUBCUT Q8HR GENIA Ceftriaxone Sodium 1,000 mg/ (Sodium Chloride) 50 mls @ 200 mls/hr IVPB Q24H GENIA Azithromycin 500 mg/ Sodium (Chloride) 250 mls @ 250 mls/hr IVPB Q24H [facility] Insulin Human Lispro (Humalog*) 0 units SUBCUT ACHS GENIA; Protocol Levothyroxine Sodium (Synthroid Tab*) 175 mcg PO DAILY@0600 [facility] Melatonin (Melatonin) 3 mg PO BEDTIME PRN; Protocol Nystatin (Nystatin Top Powder*) 1 applic TOPICAL BID GENIA Omeprazole (Prilosec Cap*) 20 mg PO DAILY@0600 [facility] Ondansetron HCl (Zofran Odt Tab*) 4 mg PO Q6H PRN Tramadol HCl (Ultram*) 50 mg PO Q6H PRN Vital Signs: Temp Pulse Resp BP Pulse Ox 97.5 F 90 7 118/40 98 04/28/18 07:48 04/28/18 12:58 04/28/18 12:58 04/28/18 07:48 04/28/18 12:58 Oxygen Devices in Use Now: Nasal Cannula Appearance: Female lying in bed in NAD Eyes: No Scleral Icterus Ears/Nose/Mouth/Throat: Mucous Membranes Moist Neck: Trachea Midline Respiratory: Symmetrical Chest Expansion and Respiratory Effort, Clear to Auscultation Cardiovascular: NL Sounds; No Murmurs; No JVD, No Edema Abdominal: NL Sounds; No Tenderness; No Distention Lymphatic: No Cervical Adenopathy Extremities: No Edema Skin: No Rash or Ulcers Neurological: Alert and Oriented x 3, NL Muscle Strength and Tone Nutrition: Taking PO's Result Diagrams: 04/27/18 08:50 04/27/18 08:50 Assess/Plan/Problems-Billing Assessment: Ms. Walsh is a 58 yo F with a PMH of COPD, DM, and HTN who was admitted with sepsis secondary to pneumonia with acute hypoxic respiratory failure. - Patient Problems (1) Pneumonia Comment: - Acute hypoxic respiratory failure improving, now on 1L NC. - With sepsis based on 2 SIRS criteria, mild hypoxia, and mild KYA. - Continue ceftriaxone and azithromycin. (2) COPD (chronic obstructive pulmonary disease) Comment: - No wheezing to suggest exacerbation. - Continue albuterol prn. (3) Diabetes mellitus Comment: - Uncontrolled. BG better controlled this AM. - Continue low dose lantus. Hold metformin and sitagliptin. Continue lispro SSI coverage with meals. (4) Hypertension Comment: - SBP 110-130s. - Hold diltiazem during acute illness. Continue IVF. (5) Dyslipidemia Comment: - Continue atorvastatin and cholestyramine. (6) Hypothyroid Comment: - TSH 3.25. - Continue levothyroxine. (7) MOISE (obstructive sleep apnea) Comment: - Continue CPAP/BiPAP qPM. (8) DVT prophylaxis Comment: - Heparin SQ. (9) Full code status Current Visit: No Comment: Status and Disposition: Inpatient with expected LOS > 2 days. Anticipate discharge to home when medically stable.
[2018-04-28] MEDS: Atorvastatin* 20 MG TAB PO SCH (17:30)
[2018-04-29] MEDS: Azithromycin IV(*) 500 MG in NS 0.9% 250 ML* 250 ML IVPB SCH (01:23)
[2018-04-29] MEDS: Albuterol/Ipratropium NEB.SOL* Albuterol 2.5 MG/Ipratropium 0.5 MG 3 ML INH SCH ×3 (03:18→13:56)
[2018-04-29] MEDS: Omeprazole CAP* 20 MG PO SCH (06:08)
[2018-04-29] MEDS: Heparin VIAL(*) 5000 UNITS/ML VIAL (FIVE THOUSAND) SUBCUT SCH ×2 (06:08→12:36)
[2018-04-29] MEDS: Levothyroxine TAB* 175 MCG TAB PO SCH (06:08)
[2018-04-29] MEDS: cefTRIAXone VIAL(*) 1,000 MG in NS 0.9% 50 ML* 50 ML IVPB SCH (08:40)
[2018-04-29] MEDS: Docusate CAP* 100 MG PO SCH (08:42)
[2018-04-29] MEDS: Cholestyramine Resin* 4 GM POWDER PO SCH (08:42)
[2018-04-29] MEDS: Insulin LISPRO* 1 UNITS UNIT SUBCUT SCH ×3 (08:42→16:51)
[2018-04-29] MEDS: guaiFENesin ER TAB 600 MG PO SCH (08:42)
[2018-04-29] MEDS: Nystatin TOP POWDER* 15 GM BTL TOPICAL SCH (08:43)
--- NOTE | 2018-04-29 14:31 | PN ---
Progress Note - Progress Note Date of Service: 04/29/18 Note: Time spent on discharge 35 minutes including exam of pt, discussion with pt, nurse, CM, review of EMR, preparation of dischage documents.
--- NOTE | 2018-04-29 15:31 | DS ---
CC: Dr. Hernandez; Dr. Pelayo * DATE OF ADMISSION: 04/27/2018. DATE OF DISCHARGE: 04/29/2018. HISTORY OF PRESENT ILLNESS/HOSPITAL COURSE: This 58-year-old woman presented with shortness of breath. She was hypoxic in the ER. She had a cough I think was largely nonproductive. She was treated with Ceftriaxone and Azithromycin. Her chest x-ray showed bibasilar infiltrates. The quality of the x-ray was diminished because of her body habitus. She improved significantly. In the hospital, she was not getting steroids as of the time of discharge. She had some insulin coverage. She will complete therapy with three days of Azithromycin and five days of Cefuroxime at home. FINAL DIAGNOSES: 1. Pneumonia. 2. COPD. 3. Diabetes. 4. Hypertension. 5. Dyslipidemia. 6. Hypothyroidism. 7. Obstructive sleep apnea. 8. Morbid obesity. DISCHARGE MEDICATIONS: 1. Azithromycin 250 mg daily for 3 days. 2. Guaifenesin ER 1200 mg b.i.d. for 10 days. 3. Cefuroxime 500 mg b.i.d. for 5 days. 4. Albuterol inhaler two puffs every 6 hours prn. 5. Levothyroxine 175 mcg daily. 6. Cholestyramine one packet daily. 7. Sitagliptin 50 mg daily. 8. Metformin 850 mg b.i.d. 9. Atorvastatin 20 mg daily. 10. Diltiazem XT 120 mg daily. 11. Albuterol Ipratropium by nebulizer 4 times daily. [id number]/[facility] #: [id number] MTDD
[2018-04-29 15:58] VITALS: BP 131/63
[2018-04-29] MEDS ORDERED: ceFUROXime TAB(*) 250 MG PO SCH (21:00)
[2018-04-30] MEDS ORDERED: Azithromycin TAB* 250 MG PO SCH (09:00)
== END 2018-04-29 17:00 | disposition home or self-care (01) | DRG 720 ==
LOC: ED 23:31 → MED 04-27 01:23
PROVIDERS: ADMIT Hospitalist; ATTEND Internal Medicine
DX: A41.9 Sepsis, unspecified organism (principal); J18.9 Pneumonia, unspecified organism; J96.01 Acute respiratory failure with hypoxia; J44.1 Chronic obstructive pulmonary disease with (acute) exacerbation; N17.9 Acute kidney failure, unspecified; Z68.44 Body mass index [BMI] 60.0-69.9, adult; E07.9 Disorder of thyroid, unspecified; M19.90 Unspecified osteoarthritis, unspecified site; F41.9 Anxiety disorder, unspecified; R65.20 Severe sepsis without septic shock; G43.909 Migraine, unspecified, not intractable, without status migrainosus; E66.01 Morbid (severe) obesity due to excess calories; I10 Essential (primary) hypertension; E78.5 Hyperlipidemia, unspecified; G47.33 Obstructive sleep apnea (adult) (pediatric); R60.0 Localized edema; E03.9 Hypothyroidism, unspecified; E11.65 Type 2 diabetes mellitus with hyperglycemia; Z99.81 Dependence on supplemental oxygen; Z88.1 Allergy status to other antibiotic agents; Z87.01 Personal history of pneumonia (recurrent); Z90.49 Acquired absence of other specified parts of digestive tract; Z87.440 Personal history of urinary (tract) infections; Z85.42 Personal history of malignant neoplasm of other parts of uterus; Z90.710 Acquired absence of both cervix and uterus; Z80.8 Family history of malignant neoplasm of other organs or systems; Z87.891 Personal history of nicotine dependence; Z79.84 Long term (current) use of oral hypoglycemic drugs; Z79.51 Long term (current) use of inhaled steroids
CPT/HCPCS: 36415; 71045; 71275; 80048; 80053; 81003; 83036; 83605; 83880; 84145; 84484; 85025; 85610; 85730; 86140; 87040; 87070; 87205; 87899; 93005; 94640; 99283; A9270-GY; J0456; J0696; J1644; J2543; J2930; J3475; Q9967

== ENCOUNTER 2019-12-18 17:35 | Inpatient (IN) | payer BC ==
[2019-12-18] MEDS ORDERED: Acetaminophen TAB* 325 MG PO ONE (17:58)
--- NOTE | 2019-12-18 17:58 | ED ---
Respiratory - HPI Summary HPI Summary: Patient complains of sweats, chills, productive cough, headache, sore throat starting yesterday, with some mild chest pressure and shortness of breath walking into the ED today. No shortness of breath while sitting in the exam chair. Denies neck stiffness, N/V/D, abdominal pain, change in urine, change in BM. Denies foreign travel within the past 30 days, denies known exposure to lab confirmed COVID 19. Patient on nasal cannula 2 L in fast track. Does not wear oxygen at home. Medical history COPD, DM, HDL, hypothyroid. - History of Current Complaint Chief Complaint: EDUpperRespComplaint Stated Complaint: HEADACHE/FEVER/COUGH PER PT Time Seen by Provider: 12/18/19 17:55 Hx Obtained From: Patient Onset/Duration: Sudden Onset, Lasting Hours Timing: Constant Initial Severity: Moderate Current Severity: Moderate Pain Intensity: 5 Character: Cough (Productive), Dyspnea on Exertion Sputum Amount: Moderate Sputum Color: Yellow Aggravating Factor(s): Exertion Alleviating Factor(s): Nothing Associated Signs and Symptoms: Fever, SOB, Chest Pain, Chest Pain with Cough - Allergy/Home Medications Allergies/Adverse Reactions: Allergies Allergy/AdvReac Type Severity Reaction Status Date / Time levofloxacin Allergy Mild Itching Verified 12/18/19 17:47 Home Medications: Home Medications Albuterol Sulfate [Ventolin Hfa] 2 puff IN Q6HR PRN 02/11/14 [History Confirmed 04/27/18] Levothyroxine TAB (NF) [Synthroid TAB (NF)] 175 mcg PO DAILY 02/11/14 [History Confirmed 04/27/18] Atorvastatin* [Lipitor 20 MG*] 20 mg PO 1700 08/23/17 [History Confirmed ] Cholestyramine Resin* [Questran*] 1 packet PO DAILY 08/23/17 [History Confirmed 04/27/18] Metformin HCl [Glucophage] 850 mg PO BID 08/23/17 [History Confirmed 04/27/18] Sitagliptin Phosphate [Januvia] 50 mg PO DAILY 08/23/17 [History Confirmed 04/27] dilTIAZem HCl [Cartia Xt] 120 mg PO DAILY 08/23/17 [History Confirmed 04/27/18] Albuterol/Ipratropium [place]* [Duoneb (Albuterol 2.5 MG/Ipratropium 0.5 MG)] 1 neb INH QID #1 box 08/25/17 [Rx Confirmed 04/27/18] Azithromycin TAB* [Zithromax TAB (Z-RITESH) 250 mg #6 tabs] 250 mg PO DAILY #3 tab 04/29/18 [Rx] Cefuroxime 500 MG TAB (NF) [Ceftin 500 MG TAB (NF)] 500 mg PO BID #10 tab [Rx] guaiFENesin ER TAB [Mucinex*] 1,200 mg PO BID #20 tab.er 04/29/18 [Rx] PMH/Surg Hx/FS Hx/Imm Hx Endocrine/Hematology History: Reports: Hx Diabetes - glucose typically runs 80' s - 130's, Hx Thyroid Disease Cardiovascular History: Reports: Hx Hypercholesterolemia, Other Cardiovascular Problems/Disorders - increased heart rate 2 x in her life Denies: Hx Deep Vein Thrombosis, Hx Embolism, Hx Hypertension, Hx Myocardial Infarction, Hx Pacemaker/ICD Respiratory History: Reports: Hx Asthma - well controlled, Hx Chronic Obstructive Pulmonary Disease (COPD), Hx Pneumonia, Hx Sleep Apnea GI History: Reports: Hx Gall Bladder Disease - cholecystectomy 27 yrs ago, Other GI Disorders - diarrhea w/certain foods (ie. chips) Denies: Hx Crohn's Disease History: Reports: Other Problems/Disorders - Frequent UTI's Denies: Hx Renal Disease Musculoskeletal History: Reports: Hx Arthritis - joints, not in back Denies: Hx Back Problems Sensory History: Reports: Hx Contacts or Glasses Denies: Hx Hearing Aid Opthamlomology History: Reports: Hx Contacts or Glasses Neurological History: Reports: Hx Migraine Psychiatric History: Reports: Hx Anxiety Denies: Hx Panic Disorder - Cancer History Cancer Type, Location and Year: UTERINE CA 08/19/14 Hx Chemotherapy: No Hx Radiation Therapy: Yes - Surgical History Surgery Procedure, Year, and Place: 3-C SECTION ; D&C; CYST-COCCYX REMOVED; GALLBLADDER- 24 YRS AGO,HYSTERECTOMY; double Hernia Repair - Immunization History Date of Tetanus Vaccine: >10 years Date of Influenza Vaccine: fall 2012 Infectious Disease History: No Infectious Disease History: Denies: Hx Shingles, Traveled Outside the [place] in Last 30 Days - Family History Known Family History: Positive: Other - Cancer Negative: Seizure Disorder - Social History Alcohol Use: Rare Hx Substance Use: No Substance Use Type: Reports: None Hx Tobacco Use: Yes Smoking Status (MU): Former Smoker Type: Cigarettes Have You Smoked in the Last Year: No Review of Systems Positive: Fever Eyes: Negative Positive: Sore Throat Positive: Chest Pain Positive: Shortness Of Breath, Cough Gastrointestinal: Negative Genitourinary: Negative Musculoskeletal: Negative Skin: Negative Positive: Headache Psychological: Normal All Other Systems Reviewed And Are Negative: Yes Physical Exam Triage Information Reviewed: Yes Vital Signs On Initial Exam: Initial Vitals Temp Pulse Resp BP Pulse Ox 101.2 F 110 20 149/71 94 12/18/19 17:44 12/18/19 17:44 12/18/19 17:44 12/18/19 17:44 12/18/19 17:44 Vital Signs Reviewed: Yes Appearance: Positive: Well-Appearing Skin: Positive: Warm Head/Face: Positive: Normal Head/Face Inspection Eyes: Positive: Normal Neck: Positive: Supple Abdomen Description: Positive: Nontender Musculoskeletal: Positive: Normal Neurological: Positive: Normal Psychiatric: Positive: Normal AVPU Assessment: Alert - Krysta Coma Scale Best Eye Response: 4 - Spontaneous Best Motor Response: 6 - Obeys Commands Best Verbal Response: 5 - Oriented Coma Scale Total: 15 Procedures - Sedation Patient Received Moderate/Deep Sedation with Procedure: No Diagnostics - Vital Signs Vital Signs Temp Pulse Resp BP Pulse Ox 12/18/19 17:44 101.2 F 110 20 149/71 94 - Laboratory Result Diagrams: 12/18/19 17:56 12/18/19 17:56 Lab Statement: Any lab studies that have been ordered have been reviewed, and results considered in the medical decision making process. Disposition - Course Course Of Treatment: Patient complains of sweats, chills, productive cough, headache, sore throat starting yesterday, with some mild chest pressure and shortness of breath walking into the ED today. No shortness of breath while sitting in the exam chair. Denies neck stiffness, N/V/D, abdominal pain, change in urine, change in BM. Denies foreign travel within the past 30 days, known exposure to lab confirmed COVID 19. Patient on nasal cannula 2 L in fast track. Does not wear oxygen at home. Medical history COPD, DM, HDL, hypothyroid. Febrile at 101.2. Heart rate 110. O2 sats 94% on 2 L. Patient normally on oxygen. No home oxygen. Without supplemental oxygen patient's O2 sats dropped to 88%. Labs within normal limits. Negative. Strep negative. Chest x-ray possible right pneumonia. EKG sinus rhythm, heart rate of 89, normal P axis. - Diagnoses Provider Diagnoses: Hypoxia, Viral syndrome Discharge ED - Sign-Out/Discharge Documenting (check all that apply): Patient Departure - Discharge Plan Condition: Stable Disposition: ADMITTED TO [facility] Referrals: Johanne Hernandez MD [Medical Doctor] - - Billing Disposition and Condition Condition: STABLE Disposition: Admitted to [facility]
--- OUTSIDE RECORDS SUMMARY | 2019-12-18 18:18 | XMS REPORT | Continuity of Care Document ---
:1960 External Reference #:[id number] Author Name Celina Sheikh NP (transmitted by agent of provider Krysta Moss) Address [address], [address] [place] [address] Care Team Providers Name Role Phone Johanne Hernandez MD - Internal Care Team Information Corporate Services Manager [phone] Medicine Sanjuanita Llanos DO - Hospitalist Care Team Information Corporate Services Manager Problems Active Problems Provider Date Pure hyperglyceridemia Johanne Hernandez M.D. Onset: 12/20/2013 Type 2 diabetes mellitus Johanne Hernandez M.D. Onset: 12/20/2013 Obstructive sleep apnea syndrome Johanne Hernandez M.D. Onset: 12/20/2013 Hypothyroidism Johanne Hernandez M.D. Onset: 12/20/2013 Note: XRT for graves Obstructive sleep apnea of adult Richi Clemens M.D. Onset: 07/14/2014 Note: Severe sleep apnea Asthma without status asthmaticus Richi Clemens M.D. Onset: 07/14/2014 Endometrial carcinoma Johanne Hernandez M.D. Onset: 11/13/2014 Note: [id number] s/p hysterectomy & adjuvant XRT ( intravaginal bracytherapy ) Former heavy tobacco smoker Johanne Hernandez M.D. Onset: 12/26/2014 Note: 32 pk yr quit 1997 CTA chest nl in 09/19 Psoriasis Johanne Hernandez M.D. Onset: 12/26/2014 Note: stable Morbid obesity Andreina Pelayo MD Onset: 03/14/2016 Osteoarthritis of knee Johanne Hernandez M.D. Onset: 03/14/2016 Chronic obstructive lung disease Johanne Hernandez M.D. Onset: 09/01/2017 Essential hypertension Sav Mitchell M.D. Onset: 04/29/2018 Chest pain Kurtis Garza MD Onset: 10/26/2019 Dyspnea Kurtis Garza MD Onset: 10/26/2019 Social History Type Date Description Comments Sex Unknown Tobacco Use Start: Unknown End: Former Cigarette Smoker Unknown Smoking Status Reviewed: 11/29/19 Former Cigarette Smoker ETOH Use Denies alcohol use Tobacco Use Start: Unknown End: Patient is a former 32 pk yr quit in Unknown smoker 1997 Recreational Drug Use Denies Drug Use Exercise Type/Frequency Exercises rarely Exercise Type/Frequency Exercises sporadically walking Allergies, Adverse Reactions, Alerts Active Allergies Reaction Severity Comments Date Levaquin Urticaria 12/20/2013 Inactive Allergies NKDA 09/09/2013 Medications Active Medications SIG Qnty Indications Ordering Date Provider Spiriva Respimat 2 inhalations once 8gm J44.9 Kurtis Garza MD 10/26/2019 a day 1.25mcg/Act Aerosol Doxycycline 1 tab twice daily 14tabs J45.901 Cleina 10/18/2019 Monohydrate for 1 week BLAINE Sheikh 100mg Tablets [id number] Ethyl take two capsules 180caps E78.2 Johanne Hernandez, 2017 Esters by mouth twice a M.D. 1gm Capsules day Januvia take one tablet by 30tabs E11.9 Johanne Hernandez, 04/09/2018 100mg Tablets mouth every day M.D. Atorvastatin Calcium take one tablet by 90tabs E78.2 Rangel EPaula 06/21/2016 mouth at bedtime Maulik Santos 20mg Tablets Symbicort 1 puffs puffs 1units J45.909 Andreina Pelayo, 05/04/2015 twice a day 160-4.5mcg/Act Aerosol Freestyle Lite Blood check fingerstick 1units Johanne Hernandez, 04/03/2015 Glucose Monitoring three times daily M.D. System or as needed - DX: Device 250.00 Freestyle Lite Test test up to 3times 100units Johanne Hernandez, 04/03/2015 a day or as needed M.D. Strips dx code: 250.00 Freestyle Lancets Test three times 100units Johanne Hernandez, 04/03/2015 daily or as needed Maulik Misc - DX 250.00 Metformin HCL Take One Tablet By 60tabs Sanjuanita Llanos, 08/10/2014 850mg Mouth Twice A Day DO Tablets Vitamin D-3 1 by mouth every Unknown 125mcg day (5000 Ut) Tablets Miralax 17 grams by mouth Unknown Powder twice daily Diltiazem CD 1 by mouth every 30caps Sanjuanita Llanos, 120mg day DO Caps ER 24HR Levothyroxine Sodium Take One Tablet By 30tabs Sanjuanita Llanos, Mouth Every Day DO 175mcg Tablets Bipap Mask And bipap supplies - G47.33 Unknown Supplies headgear, cushion, Device tubing, filters, water chamber for sleep apnea dx G43.77 Bipap use at at bedtime G47.33 Unknown Device Mucinex 1 tab bid po prn 60tabs Unknown 600mg Tablets ER 12HR Ventolin HFA 2 puffs by mouth 18gm Andreina Pelayo, four times a day 108(90Base) mcg/Act as needed Aerosol Albuterol Sulfate Every 4-6 hours as 225ml Celina needed BLAINE Sheikh (2.5mg/3ML) 0.083% Nebulizer History Medications Azithromycin take 2 tablets by 6tabs J45.901 Andreina 07/27/2019 - 250mg mouth today then MD Pierce 10/04/2019 Tablets take 1 tablet daily for 4 days Prednisone 2 tabs daily for 7 21units J45.901 Andreina 07/27/2019 - 10mg (21) days, 1 tab daily MD Pierce 10/04/2019 TBPK for 2 weeks Cpap Mask And pls provide 1units G47.33 Andreina 07/27/2019 - Supplies necessary cpap MD Pierce 11/26/2019 Device supplies, mask to fit, tubing, head gear, filters, humidifier etc Medications Administered in Office Medication SIG Qnty Indications Ordering Provider Date Shingrix pharmacy administered Unknown 09/17/2019 Injection Shingrix pharmacy administered Unknown 07/14/2019 Injection Immunizations CPT Code Status Date Vaccine Reaction Lot # [id number] Given 07/16/2019 Influ Virus Vaccine, Quadrivalent, Split Virus, [place] [id number] Given 06/25/2018 Tdap - Tetanus/Diptheria/Acellular [id number] Pertussis 64021 Given 06/25/2018 Influenza Virus Vaccine, Quadrivalent, [id number] Split, Preservative Free 68198 Given 08/18/2017 Influenza Virus Vaccine, Quadrivalent, Split, Preservative Free 75755 Given 07/23/2016 Influ Virus Vaccine, Quadrivalent, [id number] Split Virus, [place] [address] Given 06/21/2015 Influenza Virus Vaccine, Quadrivalent, [id number] Split, Preservative Free 39423 Given 06/21/2015 Pneumococcal Conjugate Vaccine 13 [id number] Valent For Intramuscular Use 81097 Given 07/11/2014 Influenza Virus Vaccine, Quadrivalent, no reaction [id number] Split, Preservative Free [id number] Given 06/16/2014 Pneumonia Vaccine [id number] Vital Signs Date Vital Result Comment 11/29/2019 11:26am Height 61 inches 5'1" Weight 336.25 lb Heart Rate 82 /min BP Systolic 132 mmHg BP Diastolic 84 mmHg O2 % BldC Oximetry 94 % BMI (Body Mass Index) 63.5 kg/m2 10/26/2019 8:40am Height 61 inches 5'1" Weight 338.38 lb Heart Rate 86 /min BP Systolic 130 mmHg BP Diastolic 84 mmHg Body Temperature 97.8 F O2 % BldC Oximetry 93 % BMI (Body Mass Index) 63.9 kg/m2 Results Test Acquired Date Facility Test Result H/L Range Note Sputum Culture 10/22/2019 [facility] Sputum SEE RESULT 1 & Sensitiv [address] [place] [address] Gram Stain [phone] Comp Metabolic 06/30/2019 [facility] Sodium 140 mmol/L Normal 135-[address] [place] [address] [phone] Potassium 4.4 mmol/L Normal 3.5-5.0 Chloride 101 mmol/L Normal 101-111 Co2 Carbon Dioxide 32 mmol/L Normal 22-32 Anion Gap 7 mmol/L Normal 2-11 Glucose 188 mg/dL High 70-100 Blood Urea Nitrogen 13 mg/dL Normal 6-24 Creatinine 0.73 mg/dL Normal 0.51-0.95 BUN/Creatinine Ratio 17.8 Normal 8-20 Calcium 9.3 mg/dL Normal 8.6-10.3 Total Protein 6.6 g/dL Normal 6.4-8.9 Albumin 4.0 g/dL Normal 3.2-5.2 Globulin 2.6 g/dL Normal 2-4 Albumin/Globulin Ratio 1.5 Normal 1-3 Total Bilirubin 0.60 mg/dL Normal 0.2-1.0 Alkaline Phosphatase 86 U/L Normal 34-104 Alt 24 U/L Normal 7-52 Ast 17 U/L Normal 13-39 Egfr Non- 81.0 >60 Egfr 98.1 >60 2 Lipid Profile 06/30/2019 [facility] Triglycerides 363 mg/dL 3 (Trig/Chol/HDL) [address] [place] [address] [phone] Cholesterol 160 mg/dL 4 HDL Cholesterol 47.9 mg/dL 5 LDL Cholesterol 40 mg/dL 6 Laboratory test 06/30/2019 [facility] TSH (Thyroid 5.79 High 0.34-5.[address] Stim Horm) mcIU/[place] [address] [phone] T3 Free 2.40 pg/mL Low 2.5-3.9 Free T4 (Free Thyroxine) 0.93 ng/dL Normal 0.61-1.12 1 SEE RESULT BELOW Name: LASHAWN CARDENAS : [address]: Celina Sheikh NP Acct: [id number] Unit: [id number] AGE: 59 Location: [facility] Re10/22/19 SEX: F Status: REG REF SPEC: [id number] MAIA: 10/22/19-[address] [facility] [address]: Celina Sheikh NP REQ: [id number] RECD: 10/22/19 STATUS: COMP _ SOURCE: SPUTUM,EXP SPDESC: ORDERED: Sputum Cult/GS Procedure Result Reported Site Sputum Smear Final 10/22/19- 1704 ML 2+ Epithelial Cells 4+ Neutrophils 4+ Gram Negative Coccobacilli 3+ Gram Positive Cocci 2+ Gram Negative Bacilli Sputum Culture Final 10/24/19- 1648 ML Organism 1 BRANHAMELLA CATARRHALIS Quantity 3+ Beta Lactamase Positive Organism 2 NORMAL ISAEL Quantity 2+ There are no routine laboratory methods for suceptibility testing of B.catarrhalis. Quinolones, augmentin, doxycycline, cephalosporins or clarithromycin are agents of choice. (Antibiotic Essentials 5th Edition, 2006 p. 29) * ML - Main Lab . END OF REPORT DEPARTMENT OF PATHOLOGY, [address] [place] [address] Baltazar Gutierrez M.D. Director [facility] # [id number] 2 Because ethnic data is not always readily [...] 15-29 5 Kidney failure <15 (or dialysis) 3 Desirable: <150 Borderline High: 150-199 High: 200-499 Very High: >500 4 Desirable: <200 Borderline High: 200-239 High: >239 5 Low: <40 Desirable: 40-60 High: >60 6 Desirable: <100 Near Optimal: 100-129 Borderline High: 130-159 High: 160-189 Very High: >189 Procedures Date Code Description Status 10/29/2019 49855 ECHO Transthoracic, Real-Time 2D With Doppler And Completed Color Flow 10/29/2019 15628 ECHO Transthoracic, Real-Time 2D With Doppler And Completed Color Flow 09/27/2015 [id number] Diabetic Retinal Eye Exam Completed 06/24/2014 [id number] Mammogram Completed 05/24/2014 [id number] Diabetic Retinal Eye Exam Completed 08/03/2008 [id number] Colonoscopy Completed 09/04/49 01450171 Colonoscopy Completed Medical Devices Description No Information Available Encounters Type Date Location Provider Dx Diagnosis Office Visit 10/18/2019 Pulmonology And Celina Ardon45.901 Unspecified asthma 1:00p [facility] Sheikh with (acute) Swing Saw Operator exacerbation J44.9 Chronic obstructive pulmonary disease, unspecified G47.33 Obstructive sleep apnea (adult) (pediatric) J30.89 Other allergic rhinitis Office Visit 10/04/2019 9:20a Swing Saw Operator Internal Sanjuanita Romi, Z00.01 Encounter for Medicine - Suite DO general adult R medical exam w abnormal findings E11.9 Type 2 diabetes mellitus without complications I10 Essential (primary) hypertension Z12.31 Encntr screen mammogram for malignant neoplasm of breast Z12.11 Encounter for screening for malignant neoplasm of colon F34.1 Dysthymic disorder Office Visit 07/27/2019 Pulmonology And Andreina J45.901 Unspecified asthma 10:30a [facility] MD Pierce with (acute) Swing Saw Operator exacerbation J44.9 Chronic obstructive pulmonary disease, unspecified G47.33 Obstructive sleep apnea (adult) (pediatric) Assessments Date Code Description Provider 11/29/2019 J45.909 Unspecified asthma, uncomplicated Celina Sheikh NP 11/29/2019 G47.33 Obstructive sleep apnea (adult) (pediatric) Celina Sheikh NP 11/29/2019 J30.89 Other allergic rhinitis Celina Sheikh NP 11/29/2019 I27.20 Pulmonary hypertension, unspecified Celina Sheikh NP 11/29/2019 E66.9 Obesity, unspecified Celina Sheikh NP 10/29/2019 R06.02 Shortness of breath Regina Mejia M.D. 10/29/2019 R06.02 Shortness of breath Traveling ECHO 1 10/26/2019 R06.02 Shortness of breath Kurtis Garza MD 10/26/2019 J44.9 Chronic obstructive pulmonary disease, Kurtis Garza MD unspecified 10/26/2019 R07.9 Chest pain, unspecified Kurtis Garza MD 10/26/2019 E11.9 Type 2 diabetes mellitus without Kurtis Garza MD complications 10/26/2019 M17.9 Osteoarthritis of knee, unspecified Kurtis Garza MD 10/26/2019 E66.01 Morbid (severe) obesity due to excess Kurtis Garza MD calories 10/18/2019 J45.901 Unspecified asthma with (acute) Celina Sheikh NP exacerbation 10/18/2019 J44.9 Chronic obstructive pulmonary disease, Celina Sheikh NP unspecified 10/18/2019 G47.33 Obstructive sleep apnea (adult) (pediatric) Celina Sheikh NP 10/18/2019 J30.89 Other allergic rhinitis Celina Sheikh NP 10/04/2019 Z00.01 Encounter for general adult medical Sanjuanita Llanos, DO examination with abnormal findings 10/04/2019 E11.9 Type 2 diabetes mellitus without Sanjuanita Llanos, DO complications 10/04/2019 I10 Essential (primary) hypertension Sanjuanita Llanos, DO 10/04/2019 Z12.31 Encounter for screening mammogram for Sanjuanita Llanos, DO malignant neoplasm of breast 10/04/2019 Z12.11 Encounter for screening for malignant Sanjuanita Llanos, DO neoplasm of colon 10/04/2019 F34.1 Dysthymic disorder Sanjuanita Llanos, DO 07/27/2019 J45.901 Unspecified asthma with (acute) Andreina Pelayo MD exacerbation 07/27/2019 J44.9 Chronic obstructive pulmonary disease, Andreina Pelayo MD unspecified 07/27/2019 G47.33 Obstructive sleep apnea (adult) (pediatric) Andreina Pelayo MD Plan of Treatment Future Appointment(s):01/28/2020 10:30 am - Celina Sheikh NP at [facility]04/04/2020 10:40 am - Sanjuanita Llanos DO at [facility] Internal Medicine - [address]/29/2019 - Celina Sheikh NPJ45.909 Unspecified asthma, uncomplicatedFollow up:2 monthsRecommendations:We will do a breathing test to check in on your asthma. Your primary care doctor prescribed you Spiriva. Please try using this along with your Symbicort. Spiriva is used once per day while Symbicort isused twice per day.G47.33 Obstructive sleep apnea (adult) (pediatric)Recommendations:If you have difficulty with your equipment, or need to replace your mask or hoses, please contact your homecare agency. If you have any further questions, please call the [facility] at [phone] If you have any sleepiness while driving you MUST avoid operating a vehicle or machinery. 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 If you know you are sleepy and need to go somewhere, arrange for a ride or use public transportation. It is very important to not risk your safety or the safety of others.J30.89 Other allergic rhinitisRecommendations:Please start a daily allergy pill like cetirizine ( Zyrtec)I27.20 Pulmonary hypertension, [id number] Obesity, unspecifiedRecommendations:I'm glad you are going to be working with [facility]. Weight loss should also help with your breathing. Functional Status Description No Information Available Mental Status Description No Information Available Referrals Refer to Reason for Referral Status Appt Date Letitia Lizarraga MD super morbid obesity, interested in gastric Sent bypass eventually if could lose weight. [address] [facility] [address] [place], [place] [id number] [phone] [facility] [address] [place] [address] [phone]
--- OUTSIDE RECORDS SUMMARY | 2019-12-18 18:18 | XMS REPORT | Continuity of Care Document ---
:1960 External Reference #:[id number] Author Name Kurtis Garza MD (transmitted by agent of provider Katarina Schroeder) Address [address] [place] [address] Care Team Providers Name Role Phone Johanne Hernandez MD - Internal Care Team Information Dish Machine Operator [phone] Medicine Sanjuanita Llanos DO - Hospitalist Care Team Information Dish Machine Operator Problems Active Problems Provider Date Pure hyperglyceridemia [...] carcinoma Johanne Hernandez M.D. Onset: 11/13/2014 Note: [id number] s/p hysterectomy & adjuvant XRT ( intravaginal [...] Former Cigarette Smoker Unknown Smoking Status Reviewed: 10/26/19 Former Cigarette Smoker ETOH Use Denies alcohol use Tobacco Use Start: Unknown End: Patient is a former 32 pk yr quit in Unknown smoker 1998 Recreational Drug Use Denies Drug Use Exercise Type/Frequency Exercises rarely Exercise Type/Frequency Exercises sporadically walking Allergies, Adverse Reactions, Alerts Active Allergies Reaction Severity Comments Date Levaquin Urticaria 12/20/2013 Inactive Allergies NKDA 09/09/2013 Medications Active Medications SIG Qnty Indications Ordering Date Provider Spiriva Respimat 2 inhalations once 8gm J44.9 Kurtis Garza MD 10/26/2019 a day 1.25mcg/Act Aerosol Doxycycline 1 tab twice daily 14tabs J45.901 Celina 10/18/2019 Monohydrate for 1 week [facility] 100mg Tablets Cpap Mask And pls provide 1units G47.33 Andreina Pelayo, 07/27/2019 Supplies necessary cpap MD Device supplies, mask to fit, tubing, head gear, filters, humidifier etc Dgjxs-1-Byhm Ethyl take two capsules 180caps E78.2 Johanne Hernandez, 2017 Esters by mouth twice a M.D. 1gm Capsules day Januvia take one tablet by 30tabs E11.9 Johanne Hernandez, 04/09/2018 100mg Tablets mouth every day M.D. Atorvastatin Calcium take one tablet by 90tabs E78.2 Rangel E. 06/21/2016 mouth at bedtime Maulik Santos 20mg [...] Johanne Hernandez, 04/03/2015 daily or as needed M.D. Misc - DX 250.00 Metformin HCL Take One Tablet By 60tabs Sanjuanita Llanos, 08/10/2014 850mg Mouth Twice A Day DO Tablets Vitamin D-3 1 by mouth every Unknown 125mcg day (5000 Ut) Tablets Miralax 17 grams by mouth Unknown Powder twice daily Diltiazem CD 1 by mouth every Unknown 120mg day Caps ER 24HR Levothyroxine Sodium Take One [...] Nebulizer History Medications Azithromycin take 2 tablets 6tabs J45.901 Andreina Pelayo, 07/27/2019 - 250mg by mouth today 10/04/2019 Tablets then take 1 tablet daily for 4 days Prednisone 2 tabs daily 21units J45.901 Andreina Pelayo, 07/27/2019 - 10mg (21) for 7 days, 1 10/04/2019 TBPK tab daily for 2 weeks Medications Administered in Office Medication SIG Qnty Indications Ordering Provider Date [facility] pharmacy administered Unknown 09/17/2019 Injection [facility] pharmacy administered Unknown 07/14/2019 Injection Immunizations CPT Code Status Date Vaccine Reaction Lot # [id number] Given 07/16/2019 Influ Virus Vaccine, Quadrivalent, Split Virus, [place] [id number] Given 06/25/2018 Tdap - Tetanus/Diptheria/Acellular [id number] Pertussis 13130 Given 06/25/2018 Influenza Virus Vaccine, Quadrivalent, [id number] Split, Preservative Free 93359 Given 08/18/2017 Influenza Virus Vaccine, Quadrivalent, Split, Preservative Free 05698 Given 07/23/2016 Influ Virus Vaccine, Quadrivalent, [id number] Split Virus, [place] [address] Given 06/21/2015 Influenza Virus Vaccine, Quadrivalent, [id number] Split, Preservative Free 41913 Given 06/21/2015 Pneumococcal Conjugate Vaccine 13 [id number] Valent For Intramuscular Use 96793 Given 07/11/2014 Influenza Virus Vaccine, Quadrivalent, no reaction [id number] Split, Preservative Free 74079 Given 06/16/2014 Pneumonia Vaccine [id number] Vital Signs Date Vital Result Comment 10/26/2019 8:40am Height 61 inches 5'1" Weight 338.38 lb Heart Rate 86 /min BP Systolic 130 mmHg BP Diastolic 84 mmHg Body Temperature 97.8 F O2 % BldC Oximetry 93 % BMI (Body Mass Index) 63.9 kg/m2 10/18/2019 1:00pm Height 61 inches 5'1" Weight 334.00 lb Heart Rate 84 /min BP Systolic 142 mmHg BP Diastolic 76 mmHg O2 % BldC Oximetry 93 % BMI (Body Mass Index) 63.1 kg/m2 Results Test Acquired Date Facility Test Result H/L Range Note Sputum Culture 10/22/2019 [facility] Sputum SEE RESULT 1 & Sensitiv [address] [place] [address] Gram Stain [phone] Comp Metabolic 06/30/2019 [facility] Sodium 140 mmol/L Normal 135-[address] [place], [place] [id number] [phone] Potassium 4.4 mmol/L Normal 3.5-5.0 Chloride 101 [...] Egfr 98.1 >60 2 Lipid Profile 06/30/2019 [facility] Triglycerides 363 mg/dL 3 (Trig/Chol/HDL) [address] [place] [address] [phone] Cholesterol 160 mg/dL 4 HDL Cholesterol 47.9 mg/dL 5 LDL Cholesterol 40 mg/dL 6 Laboratory test 06/30/2019 [facility] TSH (Thyroid 5.79 High 0.34-5.[address] Stim Horm) mcIU/[place] [address] [phone] T3 Free 2.40 pg/mL Low 2.5-3.9 Free T4 (Free Thyroxine) 0.93 ng/dL Normal 0.61-1.12 1 SEE RESULT BELOW Name: LASHAWN CARDENAS : [address]: Celina Sheikh NP Acct: [id number] Unit: [id number] AGE: 59 Location: [facility] Re10/22/19 SEX: F Status: REG REF SPEC: [id number] MAIA: [birth year][address] [facility] [address]: Celina Sheikh NP REQ: [id number] RECD: 10/22/19 STATUS: COMP _ SOURCE: SPUTUM,EXP [...] . END OF REPORT DEPARTMENT OF PATHOLOGY, [address] [place] [address] Baltazar Gutierrez M.D. Director [facility] # [id number] 2 Because ethnic data is not always [...] High: >189 Procedures Date Code Description Status 09/27/2015 369315266 Diabetic Retinal Eye Exam Completed 06/24/2014 94669207 Mammogram Completed 05/24/2014 120399430 Diabetic Retinal Eye Exam Completed 08/03/2008 22209229 Colonoscopy Completed 09/04/49 95014080 Colonoscopy Completed Medical Devices Description No Information Available Encounters Type Date Location Provider Dx Diagnosis Office Visit 10/18/2019 [facility] J45.901 Unspecified asthma 1:00p [facility] with (acute) Health Systems Analyst exacerbation J44.9 Chronic obstructive pulmonary disease, unspecified G47.33 Obstructive sleep apnea (adult) (pediatric) J30.89 Other allergic rhinitis Office Visit 10/04/2019 9:20a Health Systems Analyst Internal Sanjuanita Senner, Z00.01 Encounter for Medicine - Suite DO [...] [facility] with (acute) Health Systems Analyst exacerbation J44.9 Chronic obstructive pulmonary disease, unspecified G47.33 Obstructive sleep apnea (adult) (pediatric) Assessments Date Code Description Provider 10/26/2019 R06.02 Shortness of breath Kurtis Garza [...] 10/04/2019 I10 Essential (primary) hypertension Sanjuanita Llanos, 10/04/2019 Z12.31 Encounter for screening mammogram for [...] Andreina Pelayo MD Plan of Treatment Future Appointment(s):11/29/2019 1:40 pm - Kurtis Garza MD at [facility] Internal Medicine - [address]/18/2019 11:30 am - Celina Sheikh NP at [facility]04/04/2020 10:40 am - Sanjuanita Llanos DO at [facility] Internal Medicine - [address] 10/26/2019 - Kurtis Garza, MDR06.02 Shortness of breathNew Orders:Echocardiogram, Ordered: 10/26/19Comments:We need to get some labs, an EKG(today in office) and an updated ECHO. Medically supervised weight loss is also absolutely critical.Follow up:4 nphuuU08.9 Chronic obstructive pulmonary disease, unspecifiedNew Medication:Spiriva Respimat 1.25 mcg/Act - 2 inhalations once a dayComments:Please start WrhmzfmK47.9 Chest pain, unspecifiedNew Orders:EKG, Ordered: 10/26/19E11.9 Type 2 diabetes mellitus without zzoyynwdnuveuO25.9 Osteoarthritis of knee, unspecifiedNew Therapy: Physical HodmattB38.01 Morbid (severe) obesity due to excess caloriesComments: Referring you to Dr. Lizarraga for evaluation for medically supervised weight loss program.Referral:Letitia Lizarraga MD, Internal Medicine Functional Status Description No Information Available Mental Status Description No Information Available Referrals Refer to Reason for Referral Status Appt Date Letitia Lizarraga MD super morbid obesity, interested in gastric Created bypass eventually if could lose weight. [address] [facility] [address] [place] [address] [phone] [facility] Created [address], [place] [id number] [phone]
--- OUTSIDE RECORDS SUMMARY | 2019-12-18 18:18 | XMS REPORT | Continuity of Care Document ---
:1960 External Reference #:[id number] Author Name Kurtis Garza MD (transmitted by agent of provider Katarina Schroeder) Address [address] [place] [address] Care Team Providers Name Role Phone Johanne Hernandez MD - Internal Care Team Information Quality Control Clerk [phone] Medicine Sanjuanita Llanos DO - Hospitalist Care Team Information Quality Control Clerk [phone] Problems Active Problems Provider Date Pure hyperglyceridemia [...] carcinoma Johanne Hernandez M.D. Onset: 11/13/2014 Note: [id number] s/p hysterectomy & adjuvant XRT ( intravaginal [...] Essential hypertension Sav Mitchell M.D. Onset: 04/29/2018 Generalized anxiety disorder Kurtis Garza MD Onset: 11/29/2019 Chest pain Kurtis Garza MD Onset: 10/26/2019 [...] Medications SIG Qnty Indications Ordering Date Provider Duloxetine HCL 1 by mouth every 90caps F41.1 Kurtis Garza MD 11/29/2019 30mg day for [address] Part then increase to 2 by mouth every day Spiriva Respimat 2 inhalations once 8gm J44.9 Kurtis Garza MD 10/26/2019 a day 1.25mcg/Act Aerosol Doxycycline 1 tab twice daily 14tabs J45.901 Celina 10/18/2019 Monohydrate for 1 week [facility] She[facility] 100mg Tablets Vtsfp-7-Myik Ethyl take two capsules 180caps E78.2 Johanne [...] Code Status Date Vaccine Reaction Lot # [id number] Given 07/16/2019 Influ Virus Vaccine, Quadrivalent, Split Virus, [place] [address] Given 06/25/2018 Tdap - Tetanus/Diptheria/Acellular 33t42 Pertussis 91728 Given 06/25/2018 Influenza Virus Vaccine, Quadrivalent, [id number] Split, Preservative Free 72223 Given 08/18/2017 Influenza Virus Vaccine, Quadrivalent, Split, Preservative Free 27496 Given 07/23/2016 Influ Virus Vaccine, Quadrivalent, [id number] Split Virus, [place] [address] Given 06/21/2015 Influenza Virus Vaccine, Quadrivalent, [id number] Split, Preservative Free 27229 Given 06/21/2015 Pneumococcal Conjugate Vaccine 13 [id number] Valent For Intramuscular Use 71698 Given 07/11/2014 Influenza Virus Vaccine, Quadrivalent, no reaction [id number] Split, Preservative Free 20605 Given 06/16/2014 Pneumonia Vaccine [id number] Vital Signs Date Vital Result Comment 11/29/2019 [...] Result H/L Range Note Sputum Culture 10/22/2019 [facility] Sputum SEE RESULT 1 & Sensitiv [address] [address] Gram Stain [phone] Comp Metabolic 06/30/2019 [facility] Sodium 140 mmol/L Normal 135-[address] [place] [address] [phone] Potassium 4.4 mmol/L Normal 3.5-5.0 Chloride 101 [...] Egfr 98.1 >60 2 Lipid Profile 06/30/2019 [facility] Triglycerides 363 mg/dL 3 (Trig/Chol/HDL) [address] [place] [address] [phone] Cholesterol 160 mg/dL 4 HDL Cholesterol 47.9 mg/dL 5 LDL Cholesterol 40 mg/dL 6 Laboratory test 06/30/2019 [facility] TSH (Thyroid 5.79 High 0.34-5.[address] Stim Horm) mcIU/[place] [address] [phone] Free 2.40 pg/mL Low 2.5-3.9 Free T4 (Free Thyroxine) 0.93 ng/dL Normal 0.61-1.12 1 SEE RESULT BELOW Name: LASHAWN CARDENAS : [address]: Celina Sheikh NP Acct: [id number] Unit: [id number] AGE: 59 Location: [facility] Re10/22/19 SEX: F Status: REG REF SPEC: [id number] MAIA: 10/22[birth year]19-50 [facility] [address]: Celina Sheikh NP REQ: [id number] RECD: 10/22/19 STATUS: COMP _ SOURCE: SPUTUM,EXP [...] . END OF REPORT DEPARTMENT OF PATHOLOGY, [address] [place] [address] Baltazar Gutierrez M.D. Director [facility] # [id number] 2 Because ethnic data is not always [...] >189 Procedures Date Code Description Status 10/29/2019 13439 ECHO Transthoracic, Real-Time 2D With Doppler And Completed Color Flow 10/29/2019 83900 ECHO Transthoracic, Real-Time 2D With Doppler And Completed Color Flow 09/27/2015 852219889 Diabetic Retinal Eye Exam Completed 06/24/2014 29743711 Mammogram Completed 05/24/2014 883795774 Diabetic Retinal Eye Exam Completed 08/03/2008 67652476 Colonoscopy Completed 09/04/49 32580589 Colonoscopy Completed Medical Devices Description No Information Available Encounters Type Date Location Provider Dx Diagnosis Office Visit 10/18/2019 [facility] J45.901 Unspecified asthma 1:00p [facility] with (acute) Banana Ripening Room Supervisor exacerbation J44.9 Chronic obstructive pulmonary disease, unspecified G47.33 Obstructive sleep apnea (adult) (pediatric) J30.89 Other allergic rhinitis Office Visit 10/04/2019 9:20a [employer] Room Supervisor Internal Sanjuanita Romi, Z00.01 Encounter for Medicine [...] [facility] with (acute) Banana Ripening Room Supervisor exacerbation J44.9 Chronic obstructive pulmonary disease, unspecified G47.33 Obstructive sleep apnea (adult) (pediatric) Assessments Date Code Description Provider 11/29/2019 R06.02 Shortness of breath Kurtis Garza MD 11/29/2019 J45.909 Unspecified asthma, uncomplicated Celina Sheikh NP 11/29/2019 R07.9 Chest pain, unspecified Kurtis Garza MD 11/29/2019 G47.33 Obstructive sleep apnea (adult) (pediatric) Celina Sheikh NP 11/29/2019 F41.1 Generalized anxiety disorder Kurtis Garza MD 11/29/2019 J30.89 Other allergic rhinitis Celina Sheikh [...] Encounter for general adult medical Sanjuanita Llanos, examination with abnormal findings 10/04/2019 E11.9 Type 2 diabetes mellitus without Sanjuanita Llanos, DO complications 10/04/2019 I10 Essential (primary) hypertension Sanjuanita Llanos, DO 10/04/2019 Z12.31 Encounter for screening mammogram for Sanjuanita Llanos, DO malignant neoplasm of breast 10/04/2019 Z12.11 Encounter for screening for malignant Sanjuanita Llanso, DO neoplasm of colon 10/04/2019 F34.1 Dysthymic disorder Sanjuanita Llanos, DO 07/27/2019 J45.901 Unspecified asthma with (acute) Andreina Pelayo MD exacerbation 07/27/2019 J44.9 Chronic obstructive pulmonary disease, Andreina Pelayo MD unspecified 07/27/2019 G47.33 Obstructive sleep apnea (adult) (pediatric) Andreina Pelayo MD Plan of Treatment Future Appointment(s):01/28/2020 10:30 am - Celina Sheikh NP at [facility]04/04/2020 10:40 am - Sanjuanita Llanos DO at [facility] Internal Medicine - [address]/29/2019 - Kurtis Garza, MDR06.02 Shortness of idhwnbN47.9 Chest pain, unspecifiedNew Orders:Stress Test, Pharmacologic Nuclear (Lexiscan), Ordered: 11/29/19Follow up:after stress testF41.1 Generalized anxiety disorderNew Medication:Duloxetine HCL 30 mg - 1 by mouth every day for 2 weeks then increase to 2 by mouth every day Functional Status Description No Information Available Mental Status Description No Information Available Referrals Refer to Reason for Referral Status Appt Date Letitia Lizarraga MD super morbid obesity, interested in gastric Sent bypass eventually if could lose weight. [address] [facility] [address] [place], [place] [id number] [phone] [facility] [address] [place] [address] [phone]
[2019-12-18 19:39] LABS: Rapid Strep Molecular Negative (Negative)
[2019-12-18 19:47] LABS: Influenza A Molecular Negative (Negative); Influenza B Molecular Negative (Negative)
[2019-12-18] MEDS ORDERED: Albuterol/Ipratropium NEB.SOL* Albuterol 2.5 MG/Ipratropium 0.5 MG 3 ML INH ONE (20:38)
[2019-12-18 20:48] LABS: ABS Lymphocytes 0.5 10^3/ul (1.0-4.8); ABS Monocytes 0.8 10^3/ul (0-0.8); ABS Neutrophils 6.2 10^3/ul (1.5-7.7); Eosinophil % 0.2 %; Hematocrit 36 % (35-47); Hemoglobin 12.6 g/dL (12.0-16.0); Lymphocyte % 6.9 %; Mean Corpuscular HGB Conc 35 g/dL (31-36); Mean Corpuscular Hemoglobin 31 pg (27-31); Mean Corpuscular Volume 90 fL (80-97); Platelet Count 215 10^3/uL (150-450); Red Blood Count 4.03 10^6 /uL (3.70-4.87); Red Cell Distribution Width 15 % (10-15); White Blood Count 7.5 10^3/uL (3.5-10.8)
[2019-12-18 21:02] LABS: Albumin 3.8 g/dL (3.2-5.2); Albumin/Globulin Ratio 1.4 (1-3); BUN/Creatinine Ratio 15.2 (8-20); C Reactive Protein 17.31 mg/L (<8.01); Calcium 9.1 mg/dL (8.6-10.3); EGFR African American 89.5 (>60); Globulin 2.8 g/dL (2-4); Potassium 4.2 mmol/L (3.5-5.0); Total Bilirubin 0.7 mg/dL (0.2-1.0); Total Protein 6.6 g/dL (6.4-8.9)
[2019-12-19] MEDS ORDERED: Albuterol HFA INHALER* 8 gm MDI INH PRN (00:13)
[2019-12-19] MEDS ORDERED: Azithromycin 500 mg/250 ml NS 500 MG/250 ML BAG IVPB ONE (00:13)
[2019-12-19] MEDS ORDERED: Dextrose 50% Syringe 50 ML* 25 GM/50 ML SYRINGE IV PUSH PRN (00:21)
[2019-12-19] MEDS: Acetaminophen TAB* 325 MG PO PRN ×4 (00:46→19:33)
[2019-12-19 01:31] LABS: Ferritin 34.7 ng/mL (11-307)
[2019-12-19] MEDS: Albuterol/Ipratropium NEB.SOL* Albuterol 2.5 MG/Ipratropium 0.5 MG 3 ML INH SCH ×3 (02:25→13:26)
[2019-12-19] MEDS ORDERED: Levothyroxine TAB* 175 MCG TAB PO SCH (06:00)
--- NOTE | 2019-12-19 07:26 | HP ---
HISTORY AND PHYSICAL: DATE OF ADMISSION: 12/18/19 ADMITTING PROVIDER: Kurtis Garza MD PRIMARY CARE PROVIDER: Dr. Sanjuanita Llanos CHIEF COMPLAINT: Fever, sore throat, dry cough, headache, shortness of breath. HISTORY OF PRESENT ILLNESS: Lashawn Walsh is a 59-year-old female with past medical history of ahc-buulqbm-goxvqisyn diabetes mellitus, hypertension, asthma , obstructive sleep apnea, suspected obesity hypoventilation syndrome, and moderate pulmonary hypertension on recent echo, hypothyroidism, chronic back pain, uterine cancer, migraine headaches. She had been in her normal state of health until day prior to admission. Of note, she works at the [employer] and 2 days prior to admission, she lives around people who are coughing vigorously and another person who vomited. She was wearing a mask and gloves during her work day. However, the day prior to admission, she developed some chills, fevers, sweats, coughing, headache, sore throat, and some moderate chest pressure. She presented to the [facility] and had a fever of 101.2 and pulse rate of 110. She was found to have a new oxygen requirement given that she was between 86 and 88 on room air. She was given DuoNeb, prednisone 60 mg, Tylenol, and she was swabbed for COVID-19 PCR and referred to hospitalist service for admission given her acute hypoxic respiratory failure and fever. She in the room feels somewhat improved and thinks that she might have been stable enough to go home, but she did desat again when we took off the 2L she was on down the 86. Another complicating factor is that she is a guest, she lives as a guest in the house of her sister, who runs an in-home daycare for 3-year-old children and Lashawn adamantly denies that she would be able to self quarantine at home given scarcity of a private bathroom and the financial hardship she would impose on her sister given the fact that her children would not be able to attend the daycare. She has recently been following up with primary care and also has seen Pulmonary, Celina Sheikh twice and PFTs have been ordered and yet not have been scheduled. She was trialed on new medication, Spiriva, but did adjust once and then felt like she had some spitting up of some blood, which concerned her, so she stopped it after the first dose. Additional workup in [facility] Room included negative influenza A and B rapid swabs, group A strep was also negative. She was without leukocytosis. CRP was 17.3. PAST MEDICAL HISTORY: Morbid obesity, obstructive sleep apnea, suspected obesity hypoventilation syndrome, asthma, hypertension, uterine cancer, hyperlipidemia, hypothyroidism, yln-nhsnvzm-yqnoplvtv diabetes mellitus, migraine headaches. PAST SURGICAL HISTORY: Hernia repair, D and C's, lap robert, x3. MEDICATIONS: Include: 1. Symbicort 160/4.5 one puff inhaled b.i.d. 2. Guaifenesin 1200 mg p.o. b.i.d. 3. Diltiazem 120 mg p.o. daily. 4. Januvia 50 mg p.o. daily. 5. Metformin 850 mg p.o. b.i.d. 6. Synthroid 175 mcg p.o. daily. 7. Cholestyramine 1 packet p.o. daily. 8. Atorvastatin 20 mg p.o. daily. 9. DuoNeb 1 nebulizer inhaled 4 times a day. 10. Ventolin 2 puffs inhaled q.6 hours p.r.n. 11. Duloxetine 60 mg daily. 12. Edwards-3 fatty acid. ALLERGIES: LEVAQUIN. FAMILY HISTORY: Mother . SOCIAL HISTORY: She is a former smoker, quit 20 years ago. No alcohol use. Surrogate decision maker is her daughter, Raisa Scott. REVIEW OF SYSTEMS: A complete 14-point review of systems is negative except as per HPI. She denies any abdominal pain, nausea, vomiting, diarrhea, constipation. PHYSICAL EXAMINATION GENERAL APPEARANCE: No acute distress. VITAL SIGNS: Temperature 101.2, pulse rate 110, respiratory rate between 16 and 22, satting between 94% and 100% on room air, but did desat to 86% to 88% when lying flat on room air, blood pressure 149/71. HEENT: Normocephalic, atraumatic. Pupils equal, round, and reactive to light. NECK: Supple. LUNGS: With some coarse faint rhonchi at the bilateral mid and lower lung coughlin. Moderate air exchange, no wheezing appreciated. HEART: Regular rate and rhythm. No murmurs, rubs, or gallops. ABDOMEN: Soft, nontender, nondistended, but obese. EXTREMITIES: Warm, well perfused. No peripheral edema. SKIN: No lesions, no rashes. NEURO: Alert, oriented x3. Moving all extremities. DIAGNOSTIC STUDIES/LAB DATA: White count 7.5, hemoglobin 12.6, hematocrit 36, platelets 215. Sodium 132, potassium 4.2, chloride 95, carbon dioxide 30, BUN 12, creatinine 0.79, glucose 146, lactic acid 0.9, total bili 0.7, AST 15, ALT 17, alk phos 75, troponin 0.00, and repeat was 0.00. Five hours later, CRP 17.3 , albumin 3.8, influenza A and B negative. Group A strep negative. Imaging: Chest x-ray hard to exclude some patchy interstitial infiltrates or atelectasis. EKG: Normal sinus rhythm, rate 89, normal axis, normal intervals, poor R-wave progression, Q waves in 3. No ST changes. ASSESSMENT AND PLAN: Lashawn Walsh is a 59-year-old female with past medical history of morbid obesity with a BMI of 58.6, asthma, likely obesity hypoventilation syndrome, and some moderate pulmonary hypertension with 55 mmHg on the recent echo of 11/01/19, who had recent sick contacts at the [employer] at her work 2 days prior to admission, who presents with fever, sore throat, headache, cough, chest pressure, and some new oxygen requirements, especially when lying flat. She has been tested and negative for influenza A, B , and strep throat. She has fever 101.2 and pulse rate of 110, meeting SIRS criteria, but no leukocytosis. Chest x-ray formal read pending, but hard to exclude some diffuse interstitial markings or atelectasis. I think she has a borderline case for admission, but she did again desat and she reports that she does not have a safe plan for home quarantine until the COVID-19 PCR test results. This is because she is a guest of her sister's, and with the sister running a home daycare center for 3-year-olds and she does not think that she could impose the financial burden for her sister to shut this down. Also, there is not a separate bathroom for her to use, as dictated by the [facility] discharge instructions as requirement. I think it is reasonable to monitor her on observation and try to see if she can improve with initiation of azithromycin and supportive care. She is not frankly wheezing for me, we will continue her home inhalers of DuoNeb and Symbicort and of note she did not tolerate recent initiation attempt of Spiriva with what sounds like some scant hemoptysis that scared her. She was due for outpatient PFTs, those will be recommended. There are some concerns for some potential development of COPD and last PFTs that I could see were back from 2006 and as much the results with some concern for obesity hypoventilation syndrome. These all point to a bit of a tenuous respiratory baseline with the additional insult of likely viral pathogen. I am betting on a pathogen PCR panel, which may potentially return faster than the COVID-19 PCR panel that the ED has ordered. I am betting on Strep pneumoniae and legionella urine antigens as well. For her non- insulin-dependent diabetes mellitus, continue on metformin, hold her Januvia, get point of care testing q.a.c. and h.s. with Lispro sliding scale coverage. For her hypothyroidism, continue her levothyroxine. For her hyperlipidemia, continue her atorvastatin. Continue her recently initiated duloxetine. She is a full code. Medical surrogate is her daughter, Raisa Scott. Social work consultation may be useful to see if an alternative quarantine location upon discharge could be arranged. She can use the heart healthy carbohydrate consistent diet. [id number]/[facility] #: [id number] MTDD
[2019-12-19] MEDS ORDERED: Insulin LISPRO* 1 UNITS UNIT SUBCUT SCH (07:30)
[2019-12-19] MEDS: Diltiazem CD CAP* 120 MG PO SCH (08:27)
[2019-12-19] MEDS ORDERED: Cholestyramine Resin* 4 GM POWDER PO SCH (09:00)
[2019-12-19] MEDS ORDERED: guaiFENesin ER TAB 600 MG PO SCH (09:00)
[2019-12-19] MEDS ORDERED: metFORMIN* 850 MG TAB PO SCH ×2 (09:00→16:30)
--- NOTE | 2019-12-19 12:35 | PN ---
Subjective Date of Service: 12/19/19 Interval History: MCKEON this AM, better with window closed Sore throat cough, SOB no chest pain Objective Active Medications: Acetaminophen (Tylenol Tab*) 650 mg PO Q6H PRN PRN Reason: PAIN - MILD Last Admin: 12/19/19 08:26 Dose: 650 mg Albuterol (Ventolin Hfa Inhaler*) 2 puff INH Q6HR PRN PRN Reason: SOB/WHEEZING Albuterol/Ipratropium (Duoneb (Albuterol 2.5 Mg/Ipratropium 0.5 Mg)) 1 neb INH [id number] AWAKE [facility] Last Admin: 12/19/19 06:30 Dose: 1 neb Atorvastatin Calcium (Lipitor*) 20 mg PO 2100 [facility] Azithromycin (Zithromax Tab*) 250 mg PO 2100 [facility] Cholestyramine Resin (Questran*) 4 gm PO DAILY@2100 [facility] Dextrose (D50w Syringe 50 Ml*) 12.5 gm IV PUSH .FOR FS < 60 - SS PRN PRN Reason: FS < 60 Diltiazem HCl (Cardizem Cd Cap*) 120 mg PO DAILY [facility] Last Admin: 12/19/19 08:27 Dose: 120 mg Guaifenesin (Mucinex*) 1,200 mg PO Q12HR [facility] Levothyroxine Sodium (Synthroid Tab*) 175 mcg PO 0900 [facility] Metformin HCl (Glucophage*) 850 mg PO Q12HR [facility] Sitagliptin Phosphate (Januvia (Nf)) 50 mg PO DAILY [facility]; Protocol Vital Signs - 8 hr 12/19/19 12/19/19 12/19/19 06:34 06:40 08:00 Temperature 97.8 F Pulse Rate 90 86 Respiratory 18 20 20 Rate Blood Pressure 132/54 (mmHg) O2 Sat by Pulse 92 92 Oximetry Oxygen Devices in Use Now: Nasal Cannula - 3L, CPAP Appearance: lying on left side, appears uncomfortable but not in distress Eyes: No Scleral Icterus, PERRLA Ears/Nose/Mouth/Throat: Clear Oropharnyx, Mucous Membranes Moist Neck: NL Appearance and Movements; NL JVP, Trachea Midline Respiratory: Symmetrical Chest Expansion and Respiratory Effort, - - rales right base, difficult to ascultate left 2/2 positioning Cardiovascular: RRR Abdominal: NL Sounds; No Tenderness; No Distention, No Hepatosplenomegaly Lymphatic: No Cervical Adenopathy Extremities: No Edema Neurological: Alert and Oriented x 3 Result Diagrams: 12/18/19 17:56 12/18/19 17:56 Microbiology and Other Data: Microbiology 12/19/19 01:43 Legionella Urinary Antigen - Final Urine Negative Legionella Antigen Streptococcus pneumoniae Ag Screen - Final Negative S. pneumo Antigen Assess/Plan/Problems-Billing Assessment: 59 yo F h/o COPD, MOISE, suspected obesity hypoventilation syndrome, mod pHTN asthma, DM2, migraines p/w fever, chills, cough, headache, sore throat found with hypoxia - Patient Problems (1) Acute respiratory failure with hypoxia Comment: Suspect COPD exacerbation. Hospitalized in past with COPD. -c/w steroids/nebs However, high fever on presentation does not support COPD alone. CXR with poor quality. Check CT chest now. Determination for additional abx (on azithro alone) based on CT findings respiratory viral panel/COVID-19 testing have been sent Hold on additional fluids unless PNA identified and suspected bacterial. Hold fluids if suspected COVID (2) DM2 (diabetes mellitus, type 2) Comment: home does metformin and januvia hold lispro SS (3) MOISE (obstructive sleep apnea) Comment: CPAP (4) DVT prophylaxis Comment: Lovenox (5) Infection requiring isolation precautions Comment: If hypoxia improves and no bacterial PNA requiring IV abx would qualify for home isolation Currently lives with sister who runs home day care and would not be able to quarantine at home.
[2019-12-19] MEDS ORDERED: methylPREDNISolone 125 MG* 2 ML VIAL IV ONE (12:39)
[2019-12-19] MEDS ORDERED: Atorvastatin* 20 MG TAB PO SCH (17:00)
[2019-12-19] MEDS ORDERED: Albuterol/Ipratropium NEB.SOL* Albuterol 2.5 MG/Ipratropium 0.5 MG 3 ML INH PRN (18:03)
[2019-12-19] MEDS: metFORMIN* 850 MG TAB PO SCH (19:32)
[2019-12-19] MEDS: guaiFENesin ER TAB 600 MG PO SCH (19:32)
[2019-12-19] MEDS: Azithromycin TAB* 250 MG PO SCH (19:33)
[2019-12-19] MEDS: Atorvastatin* 20 MG TAB PO SCH (19:33)
[2019-12-19] MEDS: Enoxaparin(*) 40 MG/0.4 ML SYR SUBCUT SCH (19:33)
[2019-12-20] MEDS ORDERED: Levothyroxine TAB* 175 MCG TAB PO SCH (06:00)
[2019-12-20] MEDS: cefTRIAXone(*) 2 GM in NS 0.9% 100 ML* 100 ML IVPB SCH (10:00)
[2019-12-20] MEDS: metFORMIN* 850 MG TAB PO SCH ×2 (10:02→21:16)
[2019-12-20] MEDS: Diltiazem CD CAP* 120 MG PO SCH (10:03)
[2019-12-20] MEDS: SITAGLIPTIN 50 MG PO SCH (10:03)
[2019-12-20] MEDS: guaiFENesin ER TAB 600 MG PO SCH ×2 (10:03→21:16)
[2019-12-20] MEDS: Levothyroxine TAB* 175 MCG TAB PO SCH (10:23)
[2019-12-20 12:05] LABS: ABS Lymphocytes 0.6 10^3/ul (1.0-4.8); ABS Monocytes 0.5 10^3/ul (0-0.8); ABS Neutrophils 4.4 10^3/ul (1.5-7.7); Hematocrit 40 % (35-47); Hemoglobin 13.1 g/dL (12.0-16.0); Lymphocyte % 10.1 %; Mean Corpuscular HGB Conc 33 g/dL (31-36); Mean Corpuscular Hemoglobin 31 pg (27-31); Mean Corpuscular Volume 92 fL (80-97); Mean Platelet Volume 7.1 fL (7.4-10.4); Nucleated Red Blood Cells % 0.1; Platelet Count 243 10^3/uL (150-450); Red Cell Distribution Width 16 % (10-15); White Blood Count 5.5 10^3/uL (3.5-10.8)
[2019-12-20 12:27] LABS: BUN/Creatinine Ratio 26.4 (8-20); Calcium 9.4 mg/dL (8.6-10.3); EGFR African American 99.6 (>60); EGFR Non-African American 82.3 (>60); Potassium 4.3 mmol/L (3.5-5.0)
--- NOTE | 2019-12-20 14:24 | PN ---
Subjective Date of Service: 12/20/19 Interval History: Feeling better but still weak MCKEON resolved +dry cough Sore throat resolved No N/V Able to walk back and forth to bathroom 98% on RA sitting in chair this AM Objective Active Medications: Acetaminophen (Tylenol Tab*) 650 mg PO Q6H PRN PRN Reason: PAIN - MILD Last Admin: 12/19/19 19:33 Dose: 650 mg Albuterol (Ventolin Hfa Inhaler*) 2 puff INH Q6HR PRN PRN Reason: SOB/WHEEZING Albuterol/Ipratropium (Duoneb (Albuterol 2.5 Mg/Ipratropium 0.5 Mg)) 1 neb INH Q4H PRN PRN Reason: SHORTNESS OF BREATH Last Admin: 12/19/19 19:33 Dose: 1 neb Atorvastatin Calcium (Lipitor*) 20 mg PO 2100 [facility] Last Admin: 12/19/19 19:33 Dose: 20 mg Azithromycin (Zithromax Tab*) 250 mg PO 2100 [facility] Last Admin: 12/19/19 19:33 Dose: 250 mg Cholestyramine Resin (Questran*) 4 gm PO DAILY@2100 [facility] Dextrose (D50w Syringe 50 Ml*) 12.5 gm IV PUSH .FOR FS < 60 - SS PRN PRN Reason: FS < 60 Diltiazem HCl (Cardizem Cd Cap*) 120 mg PO DAILY [facility] Last Admin: 12/20/19 10:03 Dose: 120 mg Enoxaparin Sodium (Lovenox(*)) 40 mg SUBCUT Q24H [facility] Last Admin: 12/19/19 19:33 Dose: 40 mg Guaifenesin (Mucinex*) 1,200 mg PO Q12HR [facility] Last Admin: 12/20/19 10:03 Dose: 1,200 mg Ceftriaxone Sodium 2 gm/ (Sodium Chloride) 100 mls @ 200 mls/hr IVPB Q24H [facility] Last Admin: 12/20/19 10:00 Dose: 200 mls/hr Levothyroxine Sodium (Synthroid Tab*) 175 mcg PO 0900 [facility] Last Admin: 12/20/19 10:23 Dose: 175 mcg Metformin HCl (Glucophage*) 850 mg PO Q12HR [facility] Last Admin: 12/20/19 10:02 Dose: 850 mg Prednisone (Deltasone 50 Mg Tab) 50 mg PO DAILY [facility] Last Admin: 12/20/19 10:03 Dose: 50 mg Sitagliptin Phosphate (Januvia (Nf)) 50 mg PO DAILY [facility]; Protocol Last Admin: 12/20/19 10:03 Dose: Not Given Vital Signs - 8 hr 12/20/19 12/20/19 12/20/19 07:15 08:00 11:15 Temperature 97.6 F 98.0 F Pulse Rate 73 78 Respiratory 16 18 20 Rate Blood Pressure 118/44 130/78 (mmHg) O2 Sat by Pulse 90 93 Oximetry Oxygen Devices in Use Now: None Appearance: sitting in chair, NAD Eyes: No Scleral Icterus, PERRLA Ears/Nose/Mouth/Throat: NL Teeth, Lips, Gums, Clear Oropharnyx Neck: NL Appearance and Movements; NL JVP, Trachea Midline Respiratory: Symmetrical Chest Expansion and Respiratory Effort, - - rales right base up 1/3 Cardiovascular: NL Sounds; No Murmurs; No JVD, RRR Abdominal: NL Sounds; No Tenderness; No Distention, No Hepatosplenomegaly Lymphatic: No Cervical Adenopathy Extremities: - - non pitting edema in LE Skin: No Rash or Ulcers Neurological: Alert and Oriented x 3 Result Diagrams: 12/20/19 11:50 12/20/19 11:50 Microbiology and Other Data: Microbiology 12/19/19 01:43 Legionella Urinary Antigen - Final Urine Negative Legionella Antigen Streptococcus pneumoniae Ag Screen - Final Negative S. pneumo Antigen Assess/Plan/Problems-Billing Assessment: 59 yo F h/o COPD, MOISE, suspected obesity hypoventilation syndrome, mod pHTN asthma, DM2, migraines p/w fever, chills, cough, headache, sore throat found with hypoxia - Patient Problems (1) Acute respiratory failure with hypoxia Comment: Resolved - on RA 12/19 Suspect COPD exacerbation. Hospitalized in past with COPD. -c/w steroids/nebs Check CT with new findings c/w viral and/or bacterial PNA. CT findings are c/w COVID although pt's clinic course is rapidly improving with COPD exacerbation treatment. c/w azithro and CTX respiratory viral panel/COVID-19 testing have been sent (2) DM2 (diabetes mellitus, type 2) Comment: home does metformin and januvia hold lispro SS (3) MOISE (obstructive sleep apnea) Comment: CPAP (4) DVT prophylaxis Comment: Lovenox (5) Infection requiring isolation precautions Comment: COVID testing sent 12/18 Would qualify for home quarantine but shares home with her sister who runs home day care and would not be able to quarantine at home. She will check today if sister is still running daycare at this time. Even if daycare is closed she shares a full bathroom with sister and her grandkids. Possibility of d/c to home without shower for 1-2 days while COVID test is pending could be considered depending on need for current bed.
[2019-12-20] MEDS ORDERED: Cholestyramine Resin* 4 GM POWDER PO SCH (21:00)
[2019-12-20] MEDS: Azithromycin TAB* 250 MG PO SCH (21:16)
[2019-12-20] MEDS: Atorvastatin* 20 MG TAB PO SCH (21:16)
[2019-12-20] MEDS: Enoxaparin(*) 40 MG/0.4 ML SYR SUBCUT SCH (21:17)
[2019-12-21] MEDS: Diltiazem CD CAP* 120 MG PO SCH (09:28)
[2019-12-21] MEDS: metFORMIN* 850 MG TAB PO SCH (09:28)
[2019-12-21] MEDS: guaiFENesin ER TAB 600 MG PO SCH (09:28)
[2019-12-21] MEDS: Acetaminophen TAB* 325 MG PO PRN (09:28)
[2019-12-21] MEDS: Levothyroxine TAB* 175 MCG TAB PO SCH (09:29)
[2019-12-21] MEDS: SITAGLIPTIN 50 MG PO SCH (09:29)
[2019-12-21] MEDS: cefTRIAXone(*) 2 GM in NS 0.9% 100 ML* 100 ML IVPB SCH (09:31)
[2019-12-21 11:31] VITALS: BP 135/56
--- NOTE | 2019-12-21 14:22 | PN ---
Subjective Date of Service: 12/21/19 Interval History: Ms. Walsh reports that he is feeling better and is happy with the plan for discharge to home. She states that she is feeling much less short of breath with ambulation. She denies chest pain. Objective Active Medications: Acetaminophen (Tylenol Tab*) 650 mg PO Q6H PRN Albuterol (Ventolin Hfa Inhaler*) 2 puff INH Q6HR PRN Albuterol/Ipratropium (Duoneb (Albuterol 2.5 Mg/Ipratropium 0.5 Mg)) 1 neb INH Q4H PRN Atorvastatin Calcium (Lipitor*) 20 mg PO 2100 [facility] Azithromycin (Zithromax Tab*) 250 mg PO 2100 [facility] Cholestyramine Resin (Questran*) 4 gm PO DAILY@2100 [facility] Dextrose (D50w Syringe 50 Ml*) 12.5 gm IV PUSH .FOR FS < 60 - SS PRN Diltiazem HCl (Cardizem Cd Cap*) 120 mg PO DAILY [facility] Enoxaparin Sodium (Lovenox(*)) 40 mg SUBCUT Q24H [facility] Guaifenesin (Mucinex*) 1,200 mg PO Q12HR [facility] Ceftriaxone Sodium 2 gm/ (Sodium Chloride) 100 mls @ 200 mls/hr IVPB Q24H [facility] Levothyroxine Sodium (Synthroid Tab*) 175 mcg PO 0900 [facility] Metformin HCl (Glucophage*) 850 mg PO Q12HR [facility] Prednisone (Deltasone 50 Mg Tab) 50 mg PO DAILY [facility] Sitagliptin Phosphate (Januvia (Nf)) 50 mg PO DAILY [facility]; Protocol Vital Signs: Temp Pulse Resp BP Pulse Ox 98.7 F 69 20 135/56 94 12/21/19 11:15 12/21/19 11:15 12/21/19 11:15 12/21/19 11:15 12/21/19 11:15 Oxygen Devices in Use Now: None Appearance: female sitting up in chair in NAD Eyes: No Scleral Icterus Ears/Nose/Mouth/Throat: Mucous Membranes Moist Neck: Trachea Midline Respiratory: Symmetrical Chest Expansion and Respiratory Effort, Clear to Auscultation Cardiovascular: NL Sounds; No Murmurs; No JVD, No Edema Abdominal: NL Sounds; No Tenderness; No Distention Extremities: No Edema Skin: No Rash or Ulcers Neurological: Alert and Oriented x 3, NL Muscle Strength and Tone Nutrition: Taking PO's Result Diagrams: 12/20/19 11:50 12/20/19 11:50 Assess/Plan/Problems-Billing Assessment: 59 yo F h/o COPD, MOISE, suspected obesity hypoventilation syndrome, mod pHTN asthma, DM2, migraines p/w fever, chills, cough, headache, sore throat found with hypoxia suspected secondary to COPD exacerbation, COVID-19 ruled out. - Patient Problems (1) Acute respiratory failure with hypoxia Comment: - Resolved - Suspect COPD exacerbation. Hospitalized in past with COPD. - c/w steroids/nebs - COVID and respiratory virus ruled out (2) COPD exacerbation Comment: - Resolving - Complete course of steroids and azithro (3) Infection requiring isolation precautions Comment: -Covid-19 testing negative (4) DM2 (diabetes mellitus, type 2) Comment: - resume home meds (5) Hypertension Comment: - SBP 110-130s. - Continue diltiazem. (6) Hypothyroid Comment: - Continue levothyroxine. (7) MOISE (obstructive sleep apnea) Comment: - CPAP (8) DVT prophylaxis Comment: Lovenox (9) Full code status Comment: Status and Disposition: Inpatient, discharge to home
--- NOTE | 2019-12-21 16:46 | DS ---
CC: Dr. Sanjuanita Llanos* [facility] MEDICINE DISCHARGE SUMMARY: DATE OF ADMISSION: 12/19/19 DATE OF DISCHARGE: 12/21/19 PRIMARY CARE PROVIDER: Dr. Sanjuanita Llanos. ATTENDING PHYSICIAN: Dr. Mary Rojas* (dictation provided by Rosalie Sharma NP) . PRIMARY DIAGNOSES: 1. Acute hypoxic respiratory failure, now resolved. 2. Chronic obstructive pulmonary disease exacerbation, now resolved. 3. COVID-19 ruled out. SECONDARY DIAGNOSES: 1. Chronic obstructive pulmonary disease. 2. Morbid obesity. 3. Obesity hypoventilation syndrome. 4. Hypothyroidism. 5. Lrc-[id number]-hmlykmtpe type 2 diabetes. 6. Asthma. 7. Uterine cancer. 8. Hypertension. 9. Hyperlipidemia. 10. Migraine headaches. MEDICATIONS AT THE TIME OF DISCHARGE: 1. Symbicort 160/4.5 one puff inhaled b.i.d. 2. Guaifenesin 1200 mg p.o. b.i.d. 3. Diltiazem 120 mg p.o. daily. 4. Sitagliptin 50 mg p.o. daily. 5. Metformin 850 mg p.o. b.i.d. 6. Levothyroxine 175 mcg p.o. daily. 7. Cholestyramine 1 packet p.o. daily. 8. Atorvastatin 20 mg p.o. daily. 9. Albuterol with ipratropium/Duo Nebulizer 1 nebulization inhaled 4 times a day. 10. Albuterol HandiHaler 2 puffs inhaled q.6 hours p.r.n. 11. Prednisone 40 mg via taper. 12. Azithromycin 250 mg p.o. x3 days. HOSPITAL COURSE: Ms. Walsh is a 59-year-old female with a past medical history of diabetes, COPD and obesity with suspected obesity hypoventilation syndrome, who presented to the hospital on 12/18/19 with concern for fever, sore throat, dry cough, headache and shortness of breath. Please see the dictated H and P from Dr. Kurtis Garza for complete details. In brief, the patient stated she was in a normal state of health up until 1 day prior to admission when the symptoms noted here occurred. She has not had any travel, but works at [employer] around several people who had some general mild illnesses. In the emergency room, she had no leukocytosis. Her CRP was 17.31. Her flu swab was negative. Her group A Strep swab was negative. She had chest x-ray that showed increased density overlying the bilateral lungs could be due to viral pneumonia or pulmonary edema. Apparently, appearance may simply be due to poor x-ray penetration due to the patient's morbidly obese body habitus. Ms. Walsh was admitted to the hospital. Based on her symptoms, she was tested for COVID-19. She had a chest CT, which showed the following: "There is a patchy infiltrate in the dependent right lower and upper lobes. The lower lobe infiltrate is similar to a CT acquired on 04/27/18 while the upper lobe infiltrate is new to less extent, there is a faint subpleural infiltrate in the dependent left lower lobe. Overall, there is a ground-glass opacification of the lungs." The patient continued on antibiotics and isolation for COVID rule out. The patient ultimately did rule out as negative for COVID-19. She continued to improve and is now off of all oxygen. She is ambulating on the unit independently. Our suspicion is that she had a COPD exacerbation as this consistent with her history. She had no evidence of pneumonia. Our plans are to complete treatment for COPD with azithromycin and prednisone taper. Ms. Walsh is medically stable for discharge to home. DISPOSITION: Home. DIET: Consistent carbohydrate, heart healthy. ACTIVITY: As tolerated. FOLLOWUP PLANS: Please follow up with your primary care physician, Dr. Sanjuanita Llanos, regarding this acute hospitalization. TIME SPENT: Approximately 60 minutes was spent on the discharge of this patient, more than half that time was spent with the patient at the bedside reviewing the events leading up to this hospitalization, performing the physical examination, and reviewing my plan of care. ROSALIE SHARMA NP [id number]/[facility] #: [id number] THIAGO
== END 2019-12-21 14:30 | disposition home or self-care (01) | DRG 133 ==
LOC: ED 17:35 → MED 22:35 → OBSVTOIN 12-19 10:00 → MED 12-21 10:18
PROVIDERS: ADMIT Internal Medicine; ATTEND Internal Medicine
DX: J96.01 Acute respiratory failure with hypoxia (principal); J44.1 Chronic obstructive pulmonary disease with (acute) exacerbation; R65.10 Systemic inflammatory response syndrome (SIRS) of non-infectious origin without acute organ dysfunction; E66.2 Morbid (severe) obesity with alveolar hypoventilation; Z68.43 Body mass index [BMI] 50.0-59.9, adult; C55 Malignant neoplasm of uterus, part unspecified; E11.9 Type 2 diabetes mellitus without complications; J45.909 Unspecified asthma, uncomplicated; E03.9 Hypothyroidism, unspecified; I10 Essential (primary) hypertension; E78.5 Hyperlipidemia, unspecified; G43.909 Migraine, unspecified, not intractable, without status migrainosus; Z03.818 Encounter for observation for suspected exposure to other biological agents ruled out; Z79.84 Long term (current) use of oral hypoglycemic drugs; Z79.899 Other long term (current) drug therapy; Z88.1 Allergy status to other antibiotic agents; Z87.891 Personal history of nicotine dependence; I27.20 Pulmonary hypertension, unspecified
CPT/HCPCS: 36415; 71045; 71250; 80048; 80053; 82728; 83605; 83615; 84484; 85025; 86140; 87040; 87651; 87899; 93005; 94640; 94660; 99284; A9270-GY; J0456; J0696; J1650; J2930; J7512

== ENCOUNTER 2020-05-26 16:21 | Observation (INO) ==
[2020-05-26] MEDS ORDERED: Albuterol/Ipratropium NEB.SOL (2.5/0.5 MG) 3 ML NEB.SOLN INH ONE (17:13)
[2020-05-26 19:02] LABS: ABS Basophils 0.1 10^3/ul (0-0.2); ABS Eosinophils 0.2 10^3/ul (0-0.6); ABS Lymphocytes 1.7 10^3/ul (1.0-4.8); ABS Monocytes 0.5 10^3/ul (0-0.8); ABS Neutrophils 6.4 10^3/ul (1.5-7.7); Eosinophil % 2.2 %; Hematocrit 42 % (35-47); Mean Corpuscular HGB Conc 33 g/dL (31-36); Mean Corpuscular Hemoglobin 31 pg (27-31); Mean Corpuscular Volume 92 fL (80-97); Mean Platelet Volume 7.1 fL (7.4-10.4); Platelet Count 273 10^3/uL (150-450); Red Blood Count 4.58 10^6 /uL (3.70-4.87); Red Cell Distribution Width 16 % (10-15); White Blood Count 8.9 10^3/uL (3.5-10.8)
[2020-05-26 19:22] LABS: ALT 18 U/L (7-52); Albumin 4.2 g/dL (3.2-5.2); Albumin/Globulin Ratio 1.3 (1-3); Alkaline Phosphatase 93 U/L (34-104); BUN/Creatinine Ratio 16.3 (8-20); Blood Urea Nitrogen 13 mg/dL (6-24); C Reactive Protein 7.23 mg/L (<8.01); CO2 Carbon Dioxide 28 mmol/L (22-32); Calcium 9.8 mg/dL (8.6-10.3); Chloride 102 mmol/L (101-111); EGFR African American 87.9 (>60); EGFR Non-African American 72.7 (>60); Globulin 3.3 g/dL (2-4); Glucose 113 mg/dL (70-100); Sodium 139 mmol/L (135-145); Total Protein 7.5 g/dL (6.4-8.9)
[2020-05-26 20:22] LABS: Anion Gap 9 mmol/L (2-11)
[2020-05-26] MEDS ORDERED: Albuterol 2.5mg/3 ml (0.083%) NEB.SOLN INH PRN (20:55)
[2020-05-26] MEDS ORDERED: methylPREDNISolone 125 mg 2 ML VIAL IV ONE (21:01)
[2020-05-26] MEDS ORDERED: Dextrose 50% Syringe 50 ml 25 GM/50 ML SYRINGE IV PUSH PRN (21:07)
[2020-05-26 21:42] LABS: Urine Appearance Cloudy; Urine Bilirubin Negative (Negative); Urine Blood 1+ (Negative); Urine Color Yellow; Urine Glucose Negative (Negative); Urine Ketones Negative (Negative); Urine Nitrite Positive (Negative); Urine Protein Negative (Negative); Urine Specific Gravity 1.016 (1.010-1.030); Urine Urobilinogen Negative (Negative)
[2020-05-26 21:52] LABS: Urine Bacteria 1+ (Absent); Urine Red Blood Cell Trace(0-2/hpf) (Absent); Urine Squamous Epithelial Cell Present (Absent); Urine White Blood Cell 3+(>20/hpf) (Absent)
[2020-05-26] MEDS: Enoxaparin 40 MG/0.4 ML SYR SUBCUT SCH (23:09)
[2020-05-27] MEDS: Mometasone/Formoter 200/5 MDI INH SCH ×3 (02:26→19:46)
[2020-05-27 05:48] LABS: ABS Basophils 0.1 10^3/ul (0-0.2); ABS Eosinophils 0.1 10^3/ul (0-0.6); ABS Lymphocytes 0.8 10^3/ul (1.0-4.8); ABS Monocytes 0.2 10^3/ul (0-0.8); ABS Neutrophils 7.4 10^3/ul (1.5-7.7); Eosinophil % 0.9 %; Hematocrit 40 % (35-47); Hemoglobin 13.6 g/dL (12.0-16.0); Lymphocyte % 9.8 %; Mean Corpuscular HGB Conc 34 g/dL (31-36); Mean Corpuscular Hemoglobin 31 pg (27-31); Mean Corpuscular Volume 92 fL (80-97); Mean Platelet Volume 7.2 fL (7.4-10.4); Platelet Count 238 10^3/uL (150-450); Red Blood Count 4.37 10^6 /uL (3.70-4.87); Red Cell Distribution Width 15 % (10-15); White Blood Count 8.5 10^3/uL (3.5-10.8)
[2020-05-27 06:08] LABS: BUN/Creatinine Ratio 20.3 (8-20); Blood Urea Nitrogen 16 mg/dL (6-24); CO2 Carbon Dioxide 31 mmol/L (22-32); Calcium 9.3 mg/dL (8.6-10.3); Chloride 100 mmol/L (101-111); EGFR African American 89.2 (>60); EGFR Non-African American 73.7 (>60); Glucose 207 mg/dL (70-100); Sodium 137 mmol/L (135-145)
[2020-05-27 06:34] LABS: Anion Gap 6 mmol/L (2-11)
[2020-05-27] MEDS: Cholestyramine Resin 4 GM POWDER PO SCH (12:15)
[2020-05-27] MEDS: SPIRIVA Respimat (tiotropium) 2.5 mcg/inh Inhaler INH SCH (19:31)
[2020-05-27] MEDS: Enoxaparin 40 MG/0.4 ML SYR SUBCUT SCH (22:41)
[2020-05-28] MEDS: Mometasone/Formoter 200/5 MDI INH SCH (08:01)
[2020-05-28] MEDS: SPIRIVA Respimat (tiotropium) 2.5 mcg/inh Inhaler INH SCH (08:01)
[2020-05-28] MEDS: Cholestyramine Resin 4 GM POWDER PO SCH (10:16)
[2020-05-28 12:30] VITALS: BP 164/74
[2020-05-28 13:30] LABS: ABS Lymphocytes 0.6 10^3/ul (1.0-4.8); ABS Monocytes 0.1 10^3/ul (0-0.8); ABS Neutrophils 8.4 10^3/ul (1.5-7.7); Hematocrit 40 % (35-47); Hemoglobin 13.7 g/dL (12.0-16.0); Lymphocyte % 6.8 %; Mean Corpuscular HGB Conc 34 g/dL (31-36); Mean Corpuscular Hemoglobin 31 pg (27-31); Mean Corpuscular Volume 92 fL (80-97); Nucleated Red Blood Cells % 0.1; Platelet Count 284 10^3/uL (150-450); Red Blood Count 4.37 10^6 /uL (3.70-4.87); Red Cell Distribution Width 16 % (10-15); White Blood Count 9.2 10^3/uL (3.5-10.8)
[2020-05-28 13:47] LABS: BUN/Creatinine Ratio 29.6 (8-20); Calcium 9.6 mg/dL (8.6-10.3); EGFR African American 86.7 (>60); EGFR Non-African American 71.6 (>60); Magnesium 2.1 mg/dL (1.9-2.7)
[2020-05-28 13:48] LABS: Potassium 5.2 mmol/L (3.5-5.0)
[2020-05-28] MEDS ORDERED: Amoxicillin/Clavul 875/125 TAB (Augmentin 875 tab) PO ONE (15:15)
== END 2020-05-28 16:15 | disposition home or self-care (01) ==
LOC: MED 16:21 → ED 16:21 → MED 22:58
PROVIDERS: ADMIT Nurse Practitioner Family; ATTEND Hospitalist